=== PATIENT | female | born 1930 | race Caucasian/White ===

== ENCOUNTER 2016-12-03 10:52 | Emergency (ER) | payer OTHER ==
[~2016-12-03] VITALS: Ht 157.5 cm; Wt 55.5 kg
[~2016-12-03 10:52] MED LIST: ATOR-22 PO; ATV5X PO; CLC100 PO; ERGO1CAP41 PO; FERR1TAB23 PO; GLIP5TAB3 PO; HYDR-389 PO; HYDR-5688 PO; LSN/10125 PO; LXP10 PO; METF-384 PO; OMEP20CA9 PO; ONDA4TAB65 PO; SITA1TAB27 PO; SNKUDL10 PO; SYN25 PO; VLTG EXT
[2016-12-03 10:58] VITALS: TEMP 36.2; Ht 157.5 cm; Wt 55.5 kg
[2016-12-03] MEDS ORDERED: MCR5 PO (11:36)
[2016-12-03] MEDS ORDERED: LISI-461 PO (11:37)
[2016-12-03] MEDS ORDERED: MULT-190 PO (11:38)
[2016-12-03] MEDS ORDERED: ZNTT/150 PO (11:39)
[2016-12-03] MEDS ORDERED: ERGO1TAB12 PO (11:41)
--- NOTE | 2016-12-03 12:11 | EMERGENCY ROOM VISIT NOTE ---
History First contact with patient: 11:44 Chief Complaint: BACK PAIN Stated Complaint: BACK PAIN History of Present Illness The patient is a 86 year old female who presents to the Emergency Room via private vehicle accompanied by son with complaints of "back pain". The patient states that she has fallen 3 times in the past 2 weeks. The son who lives with her manager party, notes that she has fallen many times, once was witnessed by him in the kitchen and she had to help her stand that she was not able to get up on her own, the other was when the patient was in her bedroom and she fell back striking boxes noting that she did not have her cane, and the other time she believes that her shoelaces got caught in the door as it was being shut causing her to fall forward. She notes that at this time she is experiencing left lower back pain, which was worse last evening and rates the pain as a 10/10. She also notes that she has a history of kidney stones. She also states she has a history of 2 spinal fractures in the past. Her tetanus is up-to-date. In regard to previous falls she is unsure if she lost consciousness recently. She does feel lightheaded when she goes to stand up or lay down for bed. She denies any neck pain, chest pain, shortness of breath, abdominal pain or urinary symptoms. She has been incontinent of urine for many years according to her son she had a bladder tuck. She also notes pain in the distal right medial day region. This is also chronic. She doesn't want anything for pain at this time. Review of Systems A complete 10-point Review of Systems was discussed with the patient, with pertinent positives and negatives listed in the History of Present Illness. All remaining Review of Systems questions can be considered negative unless otherwise specified. Past Medical/Surgical History Medical Problems: (1) Diabetes (2) Ileus, postoperative (3) Kidney stones (4) Vertebral fracture, closed Surgical Problems: (1) S/P appendectomy (2) S/P hysterectomy Family History Patient reports no known family medical history. Diabetes, high blood pressure, cancer, kidney disease or stones. Social History Smoking Status: Never Smoker Alcohol Use: none Drug Use: none Marital Status: Housing Status: senior care Occupation Status: retired Social History: Pt. lives with son. She denies tobacco and alcohol use. Current/Historical Medications Scheduled Atorvastatin (Lipitor), 20 MG PO DAILY Ergocalciferol (Vitamin D2), 2,000 UNITS PO DAILY Escitalopram Oxalate (Escitalopram Oxalate), 10 MG PO DAILY Glyburide (Glyburide), 5 MG PO DAILY Hctz/Lisinopril (Lisinopril/Hctz 10/12.5 Mg), 1 TAB PO QAM Levothyroxine Sodium (Synthroid), 25 MCG PO DAILY Lisinopril (Lisinopril), 10 MG PO DAILY Metformin Hcl (Glucophage), 1,000 MG PO BID Ocuvite Preservision (Ocuvite Preservision), 1 TAB PO DAILY Omeprazole (Prilosec), 20 MG PO DAILY Ondansetron Hcl (Zofran), 4 MG PO PRN Ranitidine (Zantac), 150 MG PO BID Sitagliptin (Januvia), 100 MG PO DAILY Sulfa/Trimethoprim (Bactrim Ds 800MG/160MG), 1 TAB PO BID Scheduled PRN Diclofenac Sod (Voltaren), 1 APPLN EXT TID PRN for back pain Hydrocodone/Acetaminophen 5MG/325MG (Orange 5MG/325MG), 1-2 TABLET PO Q6H PRN for moderate to severe pain Lorazepam (Lorazepam), 0.5 MG PO HS PRN Lorazepam (Ativan), 1 TAB PO DAILY PRN for Anxiety/Agitation Allergies Coded Allergies: Amoxicillin (Unverified Allergy, Intermediate, RASH, 12/03/16) Cephalexin (Verified Allergy, Unknown, RASH, 12/03/16) Physical Exam Vital Signs Date Time Temp Pulse Resp B/P Pulse Ox O2 Delivery O2 Flow Rate FiO2 12/03/16 16:55 74 14 138/78 97 12/03/16 14:15 68 170/70 12/03/16 12:51 66 18 174/66 92 Room Air 12/03/16 12:05 71 192/96 76 171/115 71 186/104 12/03/16 10:58 36.2 73 18 158/73 93 Room Air Physical Exam VITAL SIGNS - Vital signs and nursing notes were reviewed. Patient is afebrile , normotensive, non-tachycardic and is saturating on room air 93%. GENERAL -86-year-old female appearing her stated age who is in no acute distress. Communicates well with provider and answers questions appropriately. SKIN - Without rashes. No petechial rashes. HEAD - NC/AT. EYES - PERRL with EOMI bilaterally. Sclera anicteric. Palpebral conjunctiva pink and moist with no injection noted. EARS - No deformities of external structures noted on gross examination bilaterally. No pain elicited with palpation of the tragus bilaterally. External auditory canals without discharge or otorrhea. Tympanic membranes pearly armendariz without retraction or bulging. No fluid or purulent material visualized behind the TM. Handle of malleus, umbo, cone of light, pars tensa/ flaccid all easily visualized. NOSE - Midline and without cyanosis. No epistaxis or purulent drainage noted. Septum midline without deviation or septal hematoma noted. MOUTH/OROPHARYNX - Without perioral cyanosis. Buccal mucosa pink and moist and without leukoplakia. Tongue midline with equal elevation of palate bilaterally. No tonsillar hypertrophy, erythema, or exudates noted. Good dentition noted. NECK - Neck with FROM. Supple to palpation. No lymphadenopathy noted. No nuchal rigidity. No C-spine tenderness. LUNGS - Chest wall symmetric without accessory muscle use, intercostals retractions, or central cyanosis. Normal vesicular breath sounds CTA B/L. No wheezes, rales, or rhonchi appreciated. CARDIAC - RRR with S1/S2. No murmur, rubs, or gallops appreciated. ABDOMEN - Abdominal contour without pulsations or visible masses. BS normoactive all four quadrants. No tenderness, palpable masses, hepatosplenomegaly, or ascites noted. MUSCULOSKELETAL: There is exquisite tenderness to palpation overlying the left , inferior lumbar region. No spinous processes tenderness in the lumbar region. There is concern for transverse process fracture in this region. EXTREMITIES - No clubbing or peripheral cyanosis. No pretibial edema present. There is tenderness to palpation overlying the distal medial tip/fib region. +5 /5 strength noted in UE/LE bilaterally. NEUROLOGIC - Cranial nerves II through XII grossly intact. Sensory intact to light touch throughout. PSYCH - A&Ox3 and cooperates fully with examiner. Pt is very pleasant and interacts well with examiner. Medical Decision & Procedures ER Provider Diagnostic Interpretation: RIGHT TIBIA/FIBULAR 2 VIEWS HISTORY: Right tibia pain, anterior distal Right COMPARISON: None. FINDINGS: There is no fracture or dislocation. Soft tissues are unremarkable. No radiopaque foreign bodies. Vascular calcifications are noted. Posterior and plantar calcaneal spurs. No abnormal periosteal reaction. IMPRESSION: No fractures within the right tibia or fibula. Electronically signed by: Mark Nino M.D. 12/03/2016 12:24 PM Dictated Date/Time: 12/03/2016 12:18 PM RIGHT LOWER EXTREMITY VENOUS DOPPLER HISTORY: distal right tib/fib medial tenderness Right COMPARISON STUDY: None. FINDINGS: There is normal compressibility, flow, and augmentation within the right lower extremity deep venous system. There is a 3.5 x 4.2 x 1.5 cm popliteal cyst. IMPRESSION: No DVT within the right lower extremity Electronically signed by: Mark Nino M.D. 12/03/2016 1:23 PM Dictated Date/Time: 12/03/2016 1:[address] DOSE: HISTORY: Left lower back pain s/p fall TECHNIQUE: Multiaxial CT images of the lumbar spine were performed and reformatted in the sagittal and coronal plane without the use of contrast. COMPARISON: Lumbar spine CT 02/11/2016. FINDINGS: There is again noted an old moderate anterior wedge-shaped compression fracture at T12. This demonstrates up to 3 mm of retropulsion of the posterior superior corner with mild to moderate central canal narrowing at this level. This remains unchanged. Mild superior endplate compression fracture at L3 with mild loss of height centrally. This is also old. No acute fractures within the lumbar spine. 3 mm of anterolisthesis of L4-L5, unchanged. There is moderate disc space narrowing at L4-L5. Moderate facet degenerative changes seen within the lower lumbar spine. Old, healed left posterior 12th rib fracture. Stable moderate central canal narrowing at L4-L5 due to a disc bulge and ligamentum and facet hypertrophy. Nonunited fracture at the tip of the left L2 transverse process. This is likely subacute. Right-sided nephrolithiasis with stable right-sided hydronephrosis. IMPRESSION: 1. Nonunited fracture at the tip of the left L2 transverse process which is likely subacute. 2. Old T12 and L3 compression fractures. 3. Degenerative changes as described above. Electronically signed by: Mark Nino M.D. 12/03/2016 12:59 PM Dictated Date/Time: 12/03/2016 12:[address] SCAN OF THE BONY PELVIS WITHOUT IV CONTRAST CLINICAL HISTORY: Fall with low back pain. COMPARISON STUDY: CT scan of the pelvis performed concurrently on 12/03/[address] dated 07/06/2016. TECHNIQUE: CT scan of the bony pelvis is performed from the pelvic inlet to the proximal femora. Images are reviewed in the axial, sagittal, and coronal planes. IV contrast was not administered for this examination. FINDINGS: The skeletal structures are osteopenic. There is no evidence of fracture involving the hips or bony pelvis. Lumbosacral spondylosis is partially visualized. The sacroiliac joints appear maintained. Mild arthritic change is noted in the hips. There are foci of intraluminal gas within the bladder, possibly related to instrumentation. The bladder is otherwise normal in appearance. The uterus is surgically absent. No adnexal lesion is seen. There is no pelvic sidewall or inguinal lymphadenopathy. There are bilateral fat-containing inguinal hernias. The imaged bowel loops are normal in caliber. Mild diverticulosis is noted in the sigmoid colon. There is advanced atherosclerotic calcification of the iliac and femoral arteries. The pelvic musculature appears atrophic. No intramuscular hematoma is identified. The overlying soft tissues are normal as visualized. IMPRESSION: 1. No fracture is seen in the hips or pelvis. 2. Osteopenia and mild degenerative change as above. 3. Foci of intraluminal gas are noted in the bladder lumen, likely related to recent instrumentation. Correlation with clinical findings and urinalysis will be required. 4. Additional changes as above. Dictated: 12/03/2016 12:47 PM Transcribed: 12/03/2016 1:27 PM [email or web address] Electronically signed by: Armando Valdes M.D. 12/03/2016 1:39 PM Dictated Date/Time: 12/03/2016 12:47 PM FINDINGS: General configuration of liver spleen and pancreas are unremarkable. Right kidney showed Pelvic cyst versus dilatation of the renal pelvis. There is no evidence for an obstructing urinary tract calculus on the right. There are several nonobstructing calcifications in the right and to a lesser extent left kidney. Adrenals are unremarkable. Bowel pattern is considered nonobstructive. There is no evidence for free fluid within the paracolic gutter or pelvic regions. Bladder is midline. There are no contained calcifications. There are small fat-containing non bowel containing inguinal hernias bilaterally. There are mild compression deformities of T12 and L3. T12 is old with L3 also pre-existing. IMPRESSION: No acute process of the abdomen or pelvis. Electronically signed by: Noé Merchant M.D. 12/03/2016 12:55 PM Dictated Date/Time: 12/03/2016 12:[address] NON[address]AST CT DOSE: 537.48 mGy.cm HISTORY: Fall. Loss of consciousness. TECHNIQUE: Multiaxial CT images of the head were performed without the use of intravenous contrast. Automated exposure control was utilized for this study. Comparison: Head CT 08/22/2014. Findings: The paranasal sinuses and mastoid air cells are clear. The calvarium and skull base are intact. There is no mass, hematoma, midline shift, acute infarct. White matter hypodensity is nonspecific but suggestive of microvascular ischemic change. The ventricles and sulci demonstrate mild age-related involutional changes. Impression: No significant change compared to the prior study. No acute intracranial abnormality. Electronically signed by: Mark Nino M.D. 12/03/2016 12:49 PM Dictated Date/Time: 12/03/2016 12:45 PM RIGHT TIBIA/FIBULAR 2 VIEWS HISTORY: Right tibia pain, anterior distal Right COMPARISON: None. FINDINGS: There is no fracture or dislocation. Soft tissues are unremarkable. No radiopaque foreign bodies. Vascular calcifications are noted. Posterior and plantar calcaneal spurs. No abnormal periosteal reaction. IMPRESSION: No fractures within the right tibia or fibula. Electronically signed by: Mark Nino M.D. 12/03/2016 12:24 PM Dictated Date/Time: 12/03/2016 12:18 PM Laboratory Results 12/03/16 12:25 Red Blood Count 4.25, Mean Corpuscular Volume 84.5, Mean Corpuscular Hemoglobin 27.5, Mean Corpuscular Hemoglobin Concent 32.6, Mean Platelet Volume 10.4, Neutrophils (%) (Auto) 76.9, Lymphocytes (%) (Auto) 14.1, Monocytes (%) (Auto) 6.7, Eosinophils (%) (Auto) 1.6, Basophils (%) (Auto) 0.4, Neutrophils # (Auto) 8.88, Lymphocytes # (Auto) 1.63, Monocytes # (Auto) 0.77, Eosinophils # (Auto) 0.19, Basophils # (Auto) 0.05 12/03/16 12:25 Test 12/03/16 12:20 12/03/16 12:25 Urine Color YELLOW Urine Appearance CLEAR (CLEAR) Urine pH 7.0 (4.5-7.5) Urine Specific [place] 1.015 (1.000-1.030) Urine Protein NEG (NEG) Urine Glucose (UA) NEG (NEG) Urine Ketones NEG (NEG) Urine Occult Blood NEG (NEG) Urine Nitrite POS (NEG) Urine Bilirubin NEG (NEG) Urine Urobilinogen NEG (NEG) Urine Leukocyte Esterase MODERATE (NEG) Urine WBC (Auto) 10-30 /hpf (0-5) Urine RBC (Auto) 0-4 /hpf (0-4) Urine Hyaline Casts (Auto) 0 /lpf (0-5) Urine Epithelial Cells (Auto) 5-10 /lpf (0-5) Urine Bacteria (Auto) 4+ (NEG) White Blood Count 11.55 K/uL (4.8-10.8) Red Blood Count 4.25 M/uL (4.2-5.4) Hemoglobin 11.7 g/dL (12.0-16.0) Hematocrit 35.9 % (37-47) Mean Corpuscular Volume 84.5 fL (80-100) Mean Corpuscular Hemoglobin 27.5 pg (25-34) Mean Corpuscular Hemoglobin Concent 32.6 g/dl (32-36) Platelet Count 299 K/uL (130-400) Mean Platelet Volume 10.4 fL (7.4-10.4) Neutrophils (%) (Auto) 76.9 % Lymphocytes (%) (Auto) 14.1 % Monocytes (%) (Auto) 6.7 % Eosinophils (%) (Auto) 1.6 % Basophils (%) (Auto) 0.4 % Neutrophils # (Auto) 8.88 K/uL (1.4-6.5) Lymphocytes # (Auto) 1.63 K/uL (1.2-3.4) Monocytes # (Auto) 0.77 K/uL (0.11-0.59) Eosinophils # (Auto) 0.19 K/uL (0-0.5) Basophils # (Auto) 0.05 K/uL (0-0.2) RDW Standard Deviation 43.4 fL (36.4-46.3) RDW Coefficient of Variation 14.1 % (11.5-14.5) Immature Granulocyte % (Auto) 0.3 % Immature Granulocyte # (Auto) 0.03 K/uL (0.00-0.02) Anion Gap 8.0 mmol/L (3-11) Est Creatinine Clear Calc Drug Dose 30.1 ml/min Estimated GFR () 53.4 Estimated GFR (Non- 46.1 BUN/Creatinine Ratio 21.8 (10-20) Calcium Level 9.2 mg/dl (8.5-10.1) Medications Administered Medications (Trade) Dose Ordered Sig/Hugo Route Start Time Stop Time Status Last Admin Dose Admin Trimethoprim/ Sulfamethoxazole (Septra Ds 800/ 160MG Tab) 1 tab NOW STAT PO 12/03/16 14:27 12/03/16 14:28 DC 12/03/16 15:08 1 TAB Medical Decision Patient was seen and evaluated as above. After obtaining a thorough history and physical examination the above workup was initiated. The patient presents with a significant fall history, and pain in the left lumbar spine. I was concerned for a transverse process fracture secondary to tenderness in the paraspinous musculature status post fall. She also noted to be falling more recently therefore felt that a CT of the head would be warranted. The patient is a history of kidney stones therefore a CT of the abdomen and pelvis were obtained without contrast for stone. Results of the scans as above. An x-ray was also obtained of the right lower leg and an ultrasound secondary to tenderness of the right medial calf/ankle region. These results are also above. Of pertinence, the CT of the head shows age-related change, the abdomen/ pelvis shows no evidence of obstructing urinary calculi, there is evidence of intraluminal gas bladder, and the patient denies any recent catheterization however she does have a UTI based upon urinalysis. She will be treated for this with Bactrim. The ultrasound and x-ray was unremarkable. The performing images of the lumbar spine did reveal that the patient does have a subacute L2 process fracture that does correlate clinically. I do believe this is causing her pain in the lumbar spine. She presents with slight leukocytosis of 11.5, and anemia with hemoglobin of 11.7. PRP reveals no evidence of kidney failure, but the BUN is elevated at 24. Random glucose is 187. The urine was noted to be higher on a previous visit. Urine reveals evidence of urinary tract infection. Positive nitrates, moderate leukocyte esterase, 10-30 white blood cells, 5-10 epithelial cells, and 4+ urine bacteria. I do not suspect pyelonephritis. The patient will be treated with Bactrim. Patient was also evaluated by my attending. I do believe that it is appropriate for the patient to have adequate ambulatory assistance. The patient's son was present in the room who is power of associate attorney, and it was decided with the patient that [facility] to be a good alternative temporarily to help her with the back pain in ambulation. Prescription for Bactrim was written as well as for 3 of Ativan as the rehabilitation facility does not have the ability to write for schedule 2 narcotics. 3 tablets were written for the Ativan. I do not suspect any other emergent or surgical process to the patient's pain. I do not believe that a medicare contact specialist at this time needs to be notified. I think she can follow-up in the outpatient setting without difficulty. There were educated upon today's findings, had questions answered prior to discharge, seemed happy with plan of care, and were discharged home in good condition. Patient was also personally evaluated by my attending. In the evaluation and treatment of this patient following differential diagnoses were entertained: UTI, intracranial abnormality, spinal fracture, kidney stone, UTI, among others. Impression Primary Impression: Back pain Additional Impressions: Anemia UTI (urinary tract infection) Departure Information Dispostion Home / Self-Care Condition GOOD Prescriptions Lorazepam (ATIVAN) 0.5 Mg Tab 1 TAB PO DAILY Y for Anxiety/Agitation, #3 TAB Prov: Georges Navarro PA-C 12/03/16 Sulfa/Trimethoprim (Bactrim Ds 800MG/160MG) Tab 1 TAB PO BID for 5 Days, #10 TAB Prov: Georges Navarro PA-C 12/03/16 Referrals Kael Cruz M.D. (PCP) Patient Instructions My [facility] Additional Instructions You have been treated in the Emergency Department for Back Pain. You have received pain medicine in the emergency department which impairs your ability to operate a vehicle. It is illegal for you to drive after receiving these medicines. For pain control, you can use the following [id number] medicines (if >12 yo): - Regular strength (325mg/tab) Tylenol (acetaminophen) 2 tabs every 4-6 hours as needed. Do not exceed 12 tablets in a 24 hour period. Avoid taking more than 4 grams (4000 mg) of Tylenol per day. This includes any other sources of acetaminophen you may take on a regular basis. - Regular strength (200 mg/tab) Advil (ibuprofen) 1-2 tabs every 4-6 hours as needed. Do not exceed a dose of 3200 mg per day. If this is an acute injury, ice can be applied to the area of pain for the first 3 days to help decrease pain and inflammation. After the first 3 days, a heating pad can be used over the area for continued soothing relief. Return to the Emergency Department if your current symptoms worsen despite treatment course outlined above, or if you develop any of the following symptoms : intractable pain despite aforementioned treatment course, loss of control of your bowel or bladder, numbness or tingling in your groin, or development of a fever. You have been treated in the Emergency Department for a Urinary Tract Infection (UTI). You have been prescribed Bactrim to be taken twice daily for 5 days you have received your first dose here. This is an antibiotic. All antibiotics have the potential to cause diarrhea. Stop this medication and contact a medical provider if you were to develop any significant adverse side effects including: wheezing, shortness of breath, passing out, vomiting, or a diffuse rash. Always take antibiotics as directed and COMPLETE the ENTIRE course regardless of the improvement of your symptoms. Return to the emergency department if your symptoms worsen despite treatment course outlined above. Drink plenty of water and stay well hydrated. As with any trip to the Emergency Department, you should follow-up with your Primary Care Provider from today's visit. Return to the emergency department if your symptoms persist despite treatment plan outlined above or if the following symptoms occur: increased fevers, chills , low back pain, nausea/vomiting, or blood in your urine. Please follow up with your family doctor and medicare contact specialist regarding today's visit. Problem Qualifiers Primary Impression: Back pain Back pain location: low back pain Back pain laterality: left Sciatica presence: without sciatica Additional Impressions: UTI (urinary tract infection) Urinary tract infection type: acute cystitis Hematuria presence: without hematuria Qualified Codes: N30.00 - Acute cystitis without hematuria
--- NOTE | 2016-12-03 12:25 | DIAGNOSTIC IMAGING REPORT ---
RIGHT TIBIA/FIBULAR 2 VIEWS HISTORY: Right tibia pain, anterior distal Right COMPARISON: None. FINDINGS: There is no fracture or dislocation. Soft tissues are unremarkable. No radiopaque foreign bodies. Vascular calcifications are noted. Posterior and plantar calcaneal spurs. No abnormal periosteal reaction. IMPRESSION: No fractures within the right tibia or fibula. Electronically signed by: Mark Nino M.D. 12/03/2016 12:24 PM Dictated Date/Time: 12/03/2016 12:18 PM
[2016-12-03 12:40] LABS: BASO % 0.4 %; BASO ABS # 0.05 K/uL (0-0.2); COMPLETE YES; EOS % 1.6 %; HEMATOCRIT 35.9 % (37-47); IG% 0.3 %; LYMPH % 14.1 %; LYMPH ABS # 1.63 K/uL (1.2-3.4); MEAN CELL VOLUME 84.5 fL (80-100); MEAN CORPUSCULAR HEMOGLOBIN 27.5 pg (25-34); MEAN CORPUSCULAR HGB CONC 32.6 g/dl (32-36); MEAN PLATELET VOLUME 10.4 fL (7.4-10.4); MONO % 6.7 %; NEUT % 76.9 %; PLATELET COUNT 299 K/uL (130-400); RED BLOOD COUNT 4.25 M/uL (4.2-5.4); WHITE BLOOD COUNT 11.55 K/uL (4.8-10.8)
[2016-12-03 12:48] LABS: URINE APPEARANCE CLEAR (CLEAR); URINE BILIRUBIN NEG (NEG); URINE COLOR YELLOW; URINE NITRITE POS (NEG); URINE SPECIFIC GRAVITY 1.015 (1.000-1.030); UROBILINOGEN NEG (NEG); ZZUR CULT IF INDIC CLEAN CATCH YES
--- NOTE | 2016-12-03 12:50 | DIAGNOSTIC IMAGING REPORT ---
HEAD CT NONCONTRAST CT DOSE: 537.48 mGy.cm HISTORY: Fall. Loss of consciousness. TECHNIQUE: Multiaxial CT images of the head were performed without the use of intravenous contrast. Automated exposure control was utilized for this study. Comparison: Head CT 08/22/2014. Findings: The paranasal sinuses and mastoid air cells are clear. The calvarium and skull base are intact. There is no mass, hematoma, midline shift, acute infarct. White matter hypodensity is nonspecific but suggestive of microvascular ischemic change. The ventricles and sulci demonstrate mild age-related involutional changes. Impression: No significant change compared to the prior study. No acute intracranial abnormality. Electronically signed by: Mark Nino M.D. 12/03/2016 12:49 PM Dictated Date/Time: 12/03/2016 12:45 PM
[2016-12-03 12:51] LABS: MANUAL MICROSCOPIC REQUIRED? NO; REVIEW REQ? NO
--- NOTE | 2016-12-03 12:56 | DIAGNOSTIC IMAGING REPORT ---
ABDOMEN AND PELVIS CT WITHOUT CONTRAST CT DOSE: 1385.82 mGy.cm HISTORY: Trauma. Pain. Left lower back pain. Hx fall and calculi TECHNIQUE: Multiaxial CT images of the abdomen and pelvis were performed without the use of intravenous and oral contrast according to the standard department stone protocol. COMPARISON STUDY: None. FINDINGS: General configuration of liver spleen and pancreas are unremarkable. Right kidney showed Pelvic cyst versus dilatation of the renal pelvis. There is no evidence for an obstructing urinary tract calculus on the right. There are several nonobstructing calcifications in the right and to a lesser extent left kidney. Adrenals are unremarkable. Bowel pattern is considered nonobstructive. There is no evidence for free fluid within the paracolic gutter or pelvic regions. Bladder is midline. There are no contained calcifications. There are small fat-containing non bowel containing inguinal hernias bilaterally. There are mild compression deformities of T12 and L3. T12 is old with L3 also pre-existing. IMPRESSION: No acute process of the abdomen or pelvis. Electronically signed by: Noé Merchant M.D. 12/03/2016 12:55 PM Dictated Date/Time: 12/03/2016 12:46 PM
[2016-12-03 12:59] LABS: BUN/CREATININE RATIO 21.8 (10-20); CALCIUM 9.2 mg/dl (8.5-10.1); CREATININE 1.1 mg/dl (0.60-1.20); POTASSIUM 3.8 mmol/L (3.5-5.1)
--- NOTE | 2016-12-03 13:00 | DIAGNOSTIC IMAGING REPORT ---
LUMBAR SPINE CT CT DOSE: HISTORY: Left lower back pain s/p fall TECHNIQUE: Multiaxial CT images of the lumbar spine were performed and reformatted in the sagittal and coronal plane without the use of contrast. COMPARISON: Lumbar spine CT 02/11/2016. FINDINGS: There is again noted an old moderate anterior wedge-shaped compression fracture at T12. This demonstrates up to 3 mm of retropulsion of the posterior superior corner with mild to moderate central canal narrowing at this level. This remains unchanged. Mild superior endplate compression fracture at L3 with mild loss of height centrally. This is also old. No acute fractures within the lumbar spine. 3 mm of anterolisthesis of L4-L5, unchanged. There is moderate disc space narrowing at L4-L5. Moderate facet degenerative changes seen within the lower lumbar spine. Old, healed left posterior 12th rib fracture. Stable moderate central canal narrowing at L4-L5 due to a disc bulge and ligamentum and facet hypertrophy. Nonunited fracture at the tip of the left L2 transverse process. This is likely subacute. Right-sided nephrolithiasis with stable right-sided hydronephrosis. IMPRESSION: 1. Nonunited fracture at the tip of the left L2 transverse process which is likely subacute. 2. Old T12 and L3 compression fractures. 3. Degenerative changes as described above. Electronically signed by: Mark Nino M.D. 12/03/2016 12:59 PM Dictated Date/Time: 12/03/2016 12:49 PM
--- NOTE | 2016-12-03 13:25 | DIAGNOSTIC IMAGING REPORT ---
RIGHT LOWER EXTREMITY VENOUS DOPPLER HISTORY: distal right tib/fib medial tenderness Right COMPARISON STUDY: None. FINDINGS: There is normal compressibility, flow, and augmentation within the right lower extremity deep venous system. There is a 3.5 x 4.2 x 1.5 cm popliteal cyst. IMPRESSION: No DVT within the right lower extremity Electronically signed by: Mark Nino M.D. 12/03/2016 1:23 PM Dictated Date/Time: 12/03/2016 1:20 PM
--- NOTE | 2016-12-03 13:28 | DIAGNOSTIC IMAGING REPORT ---
CT SCAN OF THE BONY PELVIS WITHOUT IV CONTRAST CLINICAL HISTORY: Fall with low back pain. COMPARISON STUDY: CT scan of the pelvis performed concurrently on 12/03/[address] dated 07/06/2016. TECHNIQUE: CT scan of the bony pelvis is performed from the pelvic inlet to the proximal femora. Images are reviewed in the axial, sagittal, and coronal planes. IV contrast was not administered for this examination. FINDINGS: The skeletal structures are osteopenic. There is no evidence of fracture involving the hips or bony pelvis. Lumbosacral spondylosis is partially visualized. The sacroiliac joints appear maintained. Mild arthritic change is noted in the hips. There are foci of intraluminal gas within the bladder, possibly related to instrumentation. The bladder is otherwise normal in appearance. The uterus is surgically absent. No adnexal lesion is seen. There is no pelvic sidewall or inguinal lymphadenopathy. There are bilateral fat-containing inguinal hernias. The imaged bowel loops are normal in caliber. Mild diverticulosis is noted in the sigmoid colon. There is advanced atherosclerotic calcification of the iliac and femoral arteries. The pelvic musculature appears atrophic. No intramuscular hematoma is identified. The overlying soft tissues are normal as visualized. IMPRESSION: 1. No fracture is seen in the hips or pelvis. 2. Osteopenia and mild degenerative change as above. 3. Foci of intraluminal gas are noted in the bladder lumen, likely related to recent instrumentation. Correlation with clinical findings and urinalysis will be required. 4. Additional changes as above. Dictated: 12/03/2016 12:47 PM Transcribed: 12/03/2016 1:27 PM Sofie Electronically signed by: Armando Valdes M.D. 12/03/2016 1:39 PM Dictated Date/Time: 12/03/2016 12:47 PM
--- NOTE | 2016-12-03 14:17 | EMERGENCY ROOM VISIT NOTE ---
ED Visit Note First contact with patient: 11:44 86-year-old female with recent frequent falls was fully evaluated by Georges Navarro PA-C. Please see his note. I also independently evaluated the patient. The patient has back pain and has a subacute transverse process fracture. We discussed care with the patient and with her son.
[2016-12-03] MEDS ORDERED: SULFAMETHOXAZOLE/TRIMETHOPRIM DS 800/160MG TAB PO STA (14:27)
[2016-12-03] MEDS ORDERED: SULF800T23 PO (16:09)
[2016-12-03] MEDS ORDERED: LORA-741 PO (16:39)
[2016-12-03 16:55] VITALS: BP 138/78; PULSE 74; O2SAT 97
== END 2016-12-03 16:56 | disposition short-term general hospital (02) ==
LOC: C.EDB 10:53 → C.EDA 16:56
DX: M54.9 Dorsalgia, unspecified (principal); D64.9 Anemia, unspecified; N30.00 Acute cystitis without hematuria; E11.9 Type 2 diabetes mellitus without complications; Z83.3 Family history of diabetes mellitus; Z82.49 Family history of ischemic heart disease and other diseases of the circulatory system; M79.661 Pain in right lower leg

== ENCOUNTER → 2017-02-01 | Outpatient (CLI) | payer OTHER ==
[~2017-02-01] MED LIST changes: +AMR2 PO; -CLC100 PO; -ERGO1CAP41 PO; +ERGO1TAB12 PO; -FERR1TAB23 PO; -GLIP5TAB3 PO; -HYDR-389 PO; +LISI-461 PO; +MCR5 PO; +MULT-190 PO; -SNKUDL10 PO; +ZNTT/150 PO
[2017-02-01 14:23] LABS: ESTIMATED AVERAGE GLUCOSE 169 mg/dl; HA1C FLAG Normal (Normal)
[2017-02-01 14:49] LABS: AST/SGOT 17 U/L (15-37); BLOOD UREA NITROGEN 24 mg/dl (7-18); BUN/CREATININE RATIO 25.8 (10-20); CALCIUM 9.2 mg/dl (8.5-10.1); CARBON DIOXIDE 28 mmol/L (21-32); CHLORIDE 104 mmol/L (98-107); CREATININE 0.95 mg/dl (0.60-1.20); GLUCOSE 158 mg/dl (70-99); POTASSIUM 4.1 mmol/L (3.5-5.1); SODIUM 141 mmol/L (136-145)
[2017-02-01 15:00] LABS: ALB/GLOB RATIO 0.8 (0.9-2); ALKALINE PHOSPHATASE 103 U/L (45-117); ALT/SGPT 17 U/L (12-78)
--- NOTE | 2017-02-08 08:31 | CODING QUERY MEDICAL NECESSITY ---
CQSUPPORTING DIAGNOSIS NEEDED A supporting diagnosis is required for the test/procedure performed on this patient in order for us to be reimbursed by the patient's insurance. Please provide a supporting diagnosis for the following test/procedure listed below next to the test name along with your signature. *If there is no additional diagnosis for this patient that would support the following test/procedure please document that below next to the test/procedure. Test(s)/Procedure(s) that require a supporting diagnosis: DOS 02/01/17 GLYCATED HEMOGLOBIN TEST Provider Signature: Date: Thank you Patrizia Duenas Health Information Management Once completed, please kindly fax back to [phone] For questions please call [phone]
== END | disposition home or self-care (01) ==
LOC: C.LABBC 12:24
PROVIDERS: ATTEND Internal Medicine
DX: E55.9 Vitamin D deficiency, unspecified (principal); E11.65 Type 2 diabetes mellitus with hyperglycemia

== ENCOUNTER 2017-04-06 06:33 | Emergency (ER) | payer OTHER ==
[~2017-04-06] VITALS: Ht 147.3 cm; Wt 58.1 kg
[~2017-04-06 06:33] MED LIST changes: -AMR2 PO
[2017-04-06 06:35] VITALS: TEMP 36.6; Ht 147.3 cm; Wt 58.1 kg
--- NOTE | 2017-04-06 06:51 | EMERGENCY ROOM VISIT NOTE ---
History Report prepared by Jenna: Chaya Rivera Under the Supervision of: Dr. Silvana Olivarez D.O. First contact with patient: 06:42 Chief Complaint: FALL Stated Complaint: FALL History of Present Illness The patient is a 86 year old female who presents to the Emergency Room with complaints of constant pain from injuries following a fall that occurred just prior to arrival. The patient states that she got up this morning to take her dog out. She came back into the house wearing sneakers which she states had a back that was not all the way on. The patient walked into the dining room where she hit one of the dining room chairs and fell into it. She states she ended up in a seated position on the chair and did not fall to the ground. She notes pain to her back and legs which have bruising on them. The patient states that her back pain is causing pain with breathing. Patient states she was feeling normal prior to this event, denies any other preceding or prodromal symptoms. She notes that she was using her cane which she uses regularly. She is not on any blood thinners. The patient has broken her back twice, she denies history of back surgery. Pt denies LOC, headache, change in vision, fevers, chest pain, shortness of breath, abdominal pain, nausea, vomiting, diarrhea, pain with urination, and melena. No other recent injury and no recent medication changes. 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 Review of Systems See HPI for pertinent positives & negatives. A total of 10 systems reviewed and were otherwise negative. Past Medical & Surgical Medical Problems: (1) Diabetes (2) Ileus, postoperative (3) Kidney stones (4) Vertebral fracture, closed Surgical Problems: (1) S/P appendectomy (2) S/P hysterectomy Family History Patient reports no known family medical history. Social History Smoking Status: Never Smoker Alcohol Use: none Drug Use: none Marital Status: Housing Status: [facility] Occupation Status: retired Current/Historical Medications Scheduled Atorvastatin (Lipitor), 20 MG PO DAILY Ergocalciferol (Vitamin D2), 2,000 UNITS PO DAILY Escitalopram Oxalate (Escitalopram Oxalate), 10 MG PO DAILY Glimepiride (Glimepiride), 2 MG PO QAM Hctz/Lisinopril (Lisinopril/Hctz 10/12.5 Mg), 1 TAB PO QAM Levothyroxine Sodium (Synthroid), 25 MCG PO DAILY Lisinopril (Lisinopril), 10 MG PO DAILY Metformin Hcl (Glucophage), 1,000 MG PO BID Ocuvite Preservision (Ocuvite Preservision), 1 TAB PO DAILY Omeprazole (Prilosec), 20 MG PO DAILY Ranitidine (Zantac), 150 MG PO BID Sitagliptin (Januvia), 100 MG PO DAILY Scheduled PRN Diclofenac Sod (Voltaren), 1 APPLN EXT TID PRN for back pain Hydrocodone/Acetaminophen 5MG/325MG (Belfry 5MG/325MG), 1 TABLET PO Q6 PRN for Pain Lorazepam (Lorazepam), 0.5 MG PO HS PRN for Sleep Ondansetron Hcl (Zofran), 4 MG PO Q6 PRN for Nausea or Vomiting Allergies Coded Allergies: Amoxicillin (Unverified Allergy, Intermediate, RASH, 04/06/17) Cephalexin (Verified Allergy, Unknown, RASH, 04/06/17) Physical Exam Vital Signs Date Time Temp Pulse Resp B/P (MAP) Pulse Ox O2 Delivery O2 Flow Rate FiO2 04/06/17 11:00 79 16 159/89 91 04/06/17 08:25 83 16 151/75 91 Room Air 04/06/17 06:35 36.6 67 16 185/66 95 Room Air Physical Exam GENERAL: alert, well appearing, well nourished, no distress, non-toxic EYE EXAM: normal conjunctiva, PERRL and EOM's grossly intact OROPHARYNX: no exudate, no erythema, lips, buccal mucosa, and tongue normal and mucous membranes are moist NECK: supple, no nuchal rigidity, no adenopathy, non-tender LUNGS: Clear to auscultation. Normal chest wall mechanics HEART: no murmurs, S1 normal and S2 normal ABDOMEN: abdomen soft, non-tender, normo-active bowel sounds, no masses, no rebound or guarding. BACK: 2 separate contusion to the right flank. Midline back tenderness of lower thoracic, upper thoracic nontender. No step off. Pelvic stable. SKIN: no rashes and no bruising UPPER EXTREMITIES: upper extremities are grossly normal. LOWER EXTREMITIES: 1 small resolving of ecchymosis to the right lateral knee. No pitting edema. NEURO EXAM: Normal sensorium, cranial nerves II-XII grossly intact, normal speech, no gross weakness of arms, no gross weakness of legs. No drift. Finger to nose intact. Gross sensation intact. Medical Decision & Procedures ER Provider Diagnostic Interpretation: Radiology results have been interpreted by the radiologist and reviewed by me. CT SCAN OF THE THORACIC SPINE WITHOUT IV CONTRAST CLINICAL HISTORY: Fall. COMPARISON STUDY: CT scan of the thoracic spine dated 02/11/2016. CT scan of the chest performed concurrently on 04/06/2017. TECHNIQUE: CT scan of the thoracic spine is performed from the lower cervical spine to the upper lumbar spine. Images are reviewed in the axial, sagittal, and coronal planes. IV contrast was not administered specifically for this examination. There is IV contrast present from the concurrently performed CT scan of the chest. FINDINGS: The skeletal structures are osteopenic. There is no evidence of fracture or malalignment involving the thoracic spine. A moderate chronic compression deformity of T12 with mildly retropulsed fragments is unchanged from previous. Vertebral body height is otherwise maintained throughout the thoracic spine. S-shaped thoracolumbar scoliosis is observed. There are anterior and lateral marginal osteophytes seen throughout. The transverse and spinous processes appear intact. There are healed bilateral posterior rib fractures. Mild multilevel degenerative disc space narrowing is observed. Posterior disc osteophyte complexes are seen at T3-T4, T4-T5, T8-T9, T9-T10, and T10-T11. There is no evidence of large disc herniation. The paraspinous soft tissues are within normal limits. The visualized lung parenchyma appears clear. The heart is enlarged and there is atherosclerotic calcification of the thoracic aorta. IMPRESSION: 1. There is no evidence of acute fracture or malalignment involving the thoracic spine. 2. A chronic compression deformity of T12 is unchanged. 3. Osteopenia with spondylotic change and scoliosis as above. Electronically signed by: Armando Valdes M.D. 04/06/2017 9:01 AM Dictated Date/Time: 04/06/2017 8:[address] DOSE: HISTORY: Trauma. Pain. trauma, pain hx fx TECHNIQUE: Multiaxial CT images of the lumbar spine were performed and reformatted in the sagittal and coronal plane without the use of contrast. COMPARISON: 12/03/2016 FINDINGS: Pre-existing compression deformity T12. Slight concavity superior endplate L3 unchanged. Degenerative intervertebral this change also stable. No new or interval finding. Unchanging grade 1 anterolisthesis L4 and L5. Pre-existing fracture posterior aspect left 12th rib degenerative changes of the posterior facets throughout. Old fracture left transverse process of L2 IMPRESSION: 1. Old/pre-existing compression deformities of T12 and L3. 2. Whole/pre-existing fractures left posterior 12th rib and left transverse process L2 3. No new or interval process. 4. Right renal hydronephrosis with right renal calcifications unchanged from the prior exam. Electronically signed by: Noé Merchant M.D. 04/06/2017 8:40 AM Dictated Date/Time: 04/06/2017 8:35 AM ADDENDUM ADDENDUM: The chronic impression deformity in the thoracic spine is seen at T12 not T11. The remainder of the findings are unchanged. Electronically signed by: Armando Valdes M.D. 04/06/2017 9:02 AM Dictated Date/Time: 04/06/2017 9:[address] SCAN OF THE CHEST WITH IV CONTRAST CLINICAL HISTORY: Fall. Right-sided chest wall pain. COMPARISON STUDY: Chest x-ray dated 02/18/2016. Abdominal CT dated 12/03/2016. TECHNIQUE: Following the IV administration of 93 cc of Optiray 320, CT scan of the thorax was performed from the thoracic inlet to the upper abdomen. Images are reviewed in the axial, sagittal, and coronal planes. IV contrast was administered without complication. The examination is degraded by streak artifact from the arms which could not be elevated above the chest. CT DOSE: 1214.39 mGy.cm FINDINGS: Thyroid: Imaged portions of the thyroid gland are normal in size and attenuation. Thoracic aorta: There is atherosclerotic calcification of the thoracic aorta, which is normal in caliber and demonstrates standard 3-vessel arch anatomy. No dissection is seen. Pulmonary vasculature: The pulmonary trunk is normal in caliber. There are no filling defects identified in the central pulmonary vessels to indicate pulmonary embolus. Note that this examination was not protocoled for evaluation of the pulmonary arteries. Heart: The heart is mildly enlarged and without pericardial effusion. There are coronary artery calcifications. Lungs and pleural spaces: Evaluation of the lung parenchyma is degraded by respiratory motion artifact. There is no airspace consolidation, pleural effusion, or pneumothorax. Dependent atelectasis is observed. The trachea and central airways are clear. Mediastinum: There is no mediastinal hematoma or lymphadenopathy. Becka: Clear. Axillae: There is no axillary lymphadenopathy. Upper abdomen: There is a moderate hiatal hernia. The visualized kidneys demonstrate cortical atrophy. Nonobstructing calculi are noted in the right kidney and there is right-sided hydronephrosis. Surgical clips are noted in the left breast. Skeletal structures: The skeletal structures are osteopenic. No lytic or blastic bony lesions are seen. Degenerative change and scoliosis are noted in the thoracic spine. There are acute and nondistracted right lateral 7th through 9th rib fractures. No additional acute fracture is seen. A posterior right 10th rib fracture is chronic and unchanged. There is a chronic moderate compression deformity of T11. This was also seen on 12/03/2016. There are numerous healed left-sided rib fractures. IMPRESSION: 1. There is no airspace consolidation, pleural effusion, or pneumothorax. 2. There are acute nondistracted right lateral 7th through 9th rib fractures. 3. Additional chronic bilateral rib fractures and a chronic compression deformity of T11 are similar to previous. 4. Cardiomegaly. 5. Right-sided hydronephrosis is similar to previous. Right renal calculi are partially visualized. See report of abdominal CT performed concurrently for detailed findings. 6. Hiatal hernia. Electronically signed by: Armando Valdes M.D. 04/06/2017 8:49 AM Dictated Date/Time: 04/06/2017 8:38 AM ABD/PELVIS IV CONTRAST ONLY HISTORY:86 yearsFemaletrauma acute right-sided rib pain. COMPARISON: 12/03/2016 CT. TECHNIQUE: Multiple axial CT images of the abdomen were obtained following the administration of 93 mL Optiray 320. FINDINGS: There are acute minimally angulated nondisplaced fractures of the lateral right 7th through 10th ribs. Groundglass opacity adjacent to the seventh rib fracture is noted within the lateral basal segment right lower lobe suggesting pulmonary contusion is seen on image 71 of the axial series. No associated pneumothorax identified. Coronary arterial calcifications are partially imaged. No pneumoperitoneum identified. The bladder, spleen, pancreas and adrenal glands appear to be unremarkable. Low attenuating nonspecific focus is seen within the dome of the liver, 3 mm which is too small to characterize and appears unchanged from comparison. Mild to moderate atrophy of the right kidney is again seen with vascular calcifications. Extrarenal pelvis on the right is noted. No hydronephrosis. There is extensive atherosclerotic plaquing of the abdominal aorta which is tortuous. No bulky retroperitoneal adenopathy. Urinary bladder is unremarkable. Prior hysterectomy. Moderate sized hiatal hernia with partially intrathoracic stomach. No bowel obstruction. Noninflamed colonic diverticula are seen. Aside from the previously mentioned rib fractures, the remaining bones appear intact. Approximately 30% anterior endplate compression deformity of the T12 vertebral body is noted, better evaluated on comparison thoracic spine study. IMPRESSION: 1. Acute minimally angulated nondisplaced fractures of the lateral right 7th through 10th ribs. Small groundglass opacity adjacent to the seventh rib fracture within the lateral basal segment of the right lower lobe suggests associated pulmonary contusion without pneumothorax identified. 2. 30% anterior endplate compression deformity of the T12 vertebral body is better evaluated on thoracic spine study of same day. 3. Additional incidental findings as above. The above report was generated using voice recognition software. It may contain grammatical, syntax or spelling errors. Electronically signed by: Cornelio Thompson 04/06/2017 8:49 AM Dictated Date/Time: 04/06/2017 8:39 AM Laboratory Results 04/06/17 07:25 Red Blood Count 3.76, Mean Corpuscular Volume 86.4, Mean Corpuscular Hemoglobin 27.9, Mean Corpuscular Hemoglobin Concent 32.3, Mean Platelet Volume 9.8, Neutrophils (%) (Auto) 55.9, Lymphocytes (%) (Auto) 29.9, Monocytes (%) (Auto) 11.0, Eosinophils (%) (Auto) 2.5, Basophils (%) (Auto) 0.5, Neutrophils # (Auto ) 4.48, Lymphocytes # (Auto) 2.40, Monocytes # (Auto) 0.88, Eosinophils # (Auto ) 0.20, Basophils # (Auto) 0.04 04/06/17 07:25 Test 04/06/17 07:25 White Blood Count 8.02 K/uL (4.8-10.8) Red Blood Count 3.76 M/uL (4.2-5.4) Hemoglobin 10.5 g/dL (12.0-16.0) Hematocrit 32.5 % (37-47) Mean Corpuscular Volume 86.4 fL (80-100) Mean Corpuscular Hemoglobin 27.9 pg (25-34) Mean Corpuscular Hemoglobin Concent 32.3 g/dl (32-36) Platelet Count 254 K/uL (130-400) Mean Platelet Volume 9.8 fL (7.4-10.4) Neutrophils (%) (Auto) 55.9 % Lymphocytes (%) (Auto) 29.9 % Monocytes (%) (Auto) 11.0 % Eosinophils (%) (Auto) 2.5 % Basophils (%) (Auto) 0.5 % Neutrophils # (Auto) 4.48 K/uL (1.4-6.5) Lymphocytes # (Auto) 2.40 K/uL (1.2-3.4) Monocytes # (Auto) 0.88 K/uL (0.11-0.59) Eosinophils # (Auto) 0.20 K/uL (0-0.5) Basophils # (Auto) 0.04 K/uL (0-0.2) RDW Standard Deviation 43.7 fL (36.4-46.3) RDW Coefficient of Variation 13.7 % (11.5-14.5) Immature Granulocyte % (Auto) 0.2 % Immature Granulocyte # (Auto) 0.02 K/uL (0.00-0.02) Anion Gap 8.0 mmol/L (3-11) Est Creatinine Clear Calc Drug Dose 28.7 ml/min Estimated GFR () 53.4 Estimated GFR (Non- 46.1 BUN/Creatinine Ratio 23.3 (10-20) Calcium Level 9.1 mg/dl (8.5-10.1) Laboratory results per my review. Medications Administered Medications (Trade) Dose Ordered Sig/Hugo Route Start Time Stop Time Status Last Admin Dose Admin Morphine Sulfate (MoRPHine SULFATE INJ) 2 mg NOW STAT IV 04/06/17 07:24 04/06/17 07:26 DC 04/06/17 07:24 2 MG Sodium Chloride 1,000 ml @ 250 mls/hr Q4H STAT IV 04/06/17 07:24 04/06/17 11:23 DC 04/06/17 07:24 250 MLS/HR Acetaminophen/ Hydrocodone Bitart (Belfry 5/325 Tab) 1 tab NOW STAT PO 04/06/17 09:22 04/06/17 09:25 DC 04/06/17 09:22 1 TAB ED Course 0643: The patient was evaluated in room B6. A complete history and physical exam was performed. 0724: Sodium Chloride 1,000 ml @ 250 mls/hr IV, Morphine Sulfate Inj 2 mg IV. 0907: I discussed imaging reports with Dr. Valdes - Radiology. The patient has no pulmonary contusion. 0909: I discussed with the patient her test results with the patient and her son. 0922: Belfry 5/325 Tab 1 tab PO. 0945: Upon reevaluation, the patient is feeling better. I discussed the findings and the treatment plan with the patient and her son. They verbalizes agreement and understanding. She was discharged home. Medical Decision The patient is a 86 year old female who presents to the ED with complaints of pain from fall. Differential diagnoses include major intracranial, cervical, spinal, thoracic, abdominal, pelvic and neurologic injury. Fracture, contusion, sprain, strain, laceration, abrasions included as well. Medication Reconciliation: I attest that I have personally reviewed the patient' s current medication list. Blood pressure screening: Patient was found to have an elevated blood pressure and was referred to their primary doctor for recheck and further treatment. Senna bedside states patient is noncompliant with use of her walker, and never put her shoes on all the way. He feels this contributed to her fall. Patient' s son very frustrated, I asked case management to see and discuss with them additional possible resources. Did not feel patient required inpatient rehabilitation at this time. Patient not hypoxic, labs otherwise stable, no other evidence of traumatic injury. Discussed with them usual course of treatment for rib fractures, discussed close follow-up with family doctor, discussed symptoms to watch and return for, discussed at length with patient need for use of walker, and steps to take to avoid any recurrent falls. Discussed pain medications and incentive spirometry, symptoms to watch and return for, they verbalized understanding were agreeable with plan. Consults Time Called: 904 Consulting Physician: Dr. Valdes - Radiology Returned Call: [phone] I discussed imaging reports with Dr. Valdes - Radiology. The patient has no pulmonary contusion. Impression Primary Impression: Flank pain Additional Impressions: Rib fracture Fall Scribe Attestation The scribe's documentation has been prepared under my direction and personally reviewed by me in its entirety. I confirm that the note above accurately reflects all work, treatment, procedures, and medical decision making performed by me. Departure Information Dispostion Home / Self-Care Prescriptions Hydrocodone/Acetaminophen 5MG/325MG (Belfry 5MG/325MG) Tab 1 TABLET PO Q6 Y for Pain, #14 TAB Prov: Silvana Olivarez, DO 04/06/17 Referrals Kael Cruz M.D. (PCP) Forms HOME CARE DOCUMENTATION FORM, IMPORTANT VISIT INFORMATION Patient Instructions My [facility] Additional Instructions Please use the pain medications carefully as they can make you dizzy or sleepy. Please use your walker at all times. Please wear appropriate footwear and make sure they are securely fastened to your feet. Please use the incentive spirometer daily while you are awake to help prevent pneumonia. Please call and follow up with your family doctor to recheck your symptoms and assure you are improving. Please continue your other medications as prescribed. If you develop any worsening pain, have trouble breathing, vomiting, dizziness, feel unsteady on her feet, or have any other new concerns, please return the emergency room. Problem Qualifiers Additional Impressions: Rib fracture Encounter type: initial encounter Rib fracture type: multiple ribs Fracture type: closed Laterality: right Qualified Codes: S22.41XA - Multiple fractures of ribs, right side, initial encounter for closed fracture Fall Encounter type: initial encounter Qualified Codes: W19.XXXA - Unspecified fall, initial encounter
[2017-04-06] MEDS ORDERED: AMR2 PO (06:55)
[2017-04-06] MEDS ORDERED: OPTIRAY 320 IV PRN (07:00)
[2017-04-06] MEDS ORDERED: MoRPHine SULFATE 4 MG/ML 1 ML CARP\\VIAL IV STA (07:24)
[2017-04-06] MEDS ORDERED: SODIUM CHLORIDE 0.9% 1000ML 1,000 ML IV STA (07:24)
[2017-04-06 07:36] LABS: BASO % 0.5 %; BASO ABS # 0.04 K/uL (0-0.2); COMPLETE YES; EOS % 2.5 %; HEMATOCRIT 32.5 % (37-47); IG% 0.2 %; LYMPH % 29.9 %; MEAN CELL VOLUME 86.4 fL (80-100); MEAN CORPUSCULAR HEMOGLOBIN 27.9 pg (25-34); MEAN CORPUSCULAR HGB CONC 32.3 g/dl (32-36); MEAN PLATELET VOLUME 9.8 fL (7.4-10.4); NEUT % 55.9 %; PLATELET COUNT 254 K/uL (130-400); RED BLOOD COUNT 3.76 M/uL (4.2-5.4); WHITE BLOOD COUNT 8.02 K/uL (4.8-10.8)
[2017-04-06 07:53] LABS: BUN/CREATININE RATIO 23.3 (10-20); CALCIUM 9.1 mg/dl (8.5-10.1); CREATININE 1.1 mg/dl (0.60-1.20); POTASSIUM 4.3 mmol/L (3.5-5.1)
--- NOTE | 2017-04-06 08:42 | DIAGNOSTIC IMAGING REPORT ---
LUMBAR SPINE CT CT DOSE: HISTORY: Trauma. Pain. trauma, pain hx fx TECHNIQUE: Multiaxial CT images of the lumbar spine were performed and reformatted in the sagittal and coronal plane without the use of contrast. COMPARISON: 12/03/2016 FINDINGS: Pre-existing compression deformity T12. Slight concavity superior endplate L3 unchanged. Degenerative intervertebral this change also stable. No new or interval finding. Unchanging grade 1 anterolisthesis L4 and L5. Pre-existing fracture posterior aspect left 12th rib degenerative changes of the posterior facets throughout. Old fracture left transverse process of L2 IMPRESSION: 1. Old/pre-existing compression deformities of T12 and L3. 2. Whole/pre-existing fractures left posterior 12th rib and left transverse process L2 3. No new or interval process. 4. Right renal hydronephrosis with right renal calcifications unchanged from the prior exam. Electronically signed by: Noé Merchant M.D. 04/06/2017 8:40 AM Dictated Date/Time: 04/06/2017 8:35 AM
--- NOTE | 2017-04-06 08:50 | DIAGNOSTIC IMAGING REPORT ---
ABD/PELVIS IV CONTRAST ONLY HISTORY:86 yearsFemaletrauma acute right-sided rib pain. COMPARISON: 12/03/2016 CT. TECHNIQUE: Multiple axial CT images of the abdomen were obtained following the administration of 93 mL Optiray 320. FINDINGS: There are acute minimally angulated nondisplaced fractures of the lateral right 7th through 10th ribs. Groundglass opacity adjacent to the seventh rib fracture is noted within the lateral basal segment right lower lobe suggesting pulmonary contusion is seen on image 71 of the axial series. No associated pneumothorax identified. Coronary arterial calcifications are partially imaged. No pneumoperitoneum identified. The bladder, spleen, pancreas and adrenal glands appear to be unremarkable. Low attenuating nonspecific focus is seen within the dome of the liver, 3 mm which is too small to characterize and appears unchanged from comparison. Mild to moderate atrophy of the right kidney is again seen with vascular calcifications. Extrarenal pelvis on the right is noted. No hydronephrosis. There is extensive atherosclerotic plaquing of the abdominal aorta which is tortuous. No bulky retroperitoneal adenopathy. Urinary bladder is unremarkable. Prior hysterectomy. Moderate sized hiatal hernia with partially intrathoracic stomach. No bowel obstruction. Noninflamed colonic diverticula are seen. Aside from the previously mentioned rib fractures, the remaining bones appear intact. Approximately 30% anterior endplate compression deformity of the T12 vertebral body is noted, better evaluated on comparison thoracic spine study. IMPRESSION: 1. Acute minimally angulated nondisplaced fractures of the lateral right 7th through 10th ribs. Small groundglass opacity adjacent to the seventh rib fracture within the lateral basal segment of the right lower lobe suggests associated pulmonary contusion without pneumothorax identified. 2. 30% anterior endplate compression deformity of the T12 vertebral body is better evaluated on thoracic spine study of same day. 3. Additional incidental findings as above. The above report was generated using voice recognition software. It may contain grammatical, syntax or spelling errors. Electronically signed by: Cornelio Thompson 04/06/2017 8:49 AM Dictated Date/Time: 04/06/2017 8:39 AM
--- NOTE | 2017-04-06 08:51 | DIAGNOSTIC IMAGING REPORT ---
ADDENDUM ADDENDUM: The chronic impression deformity in the thoracic spine is seen at T12 not T11. The remainder of the findings are unchanged. Electronically signed by: Armando Valdes M.D. 04/06/2017 9:02 AM Dictated Date/Time: 04/06/2017 9:[address] SCAN OF THE CHEST WITH IV CONTRAST CLINICAL HISTORY: Fall. Right-sided chest wall pain. COMPARISON STUDY: Chest x-ray dated 02/18/2016. Abdominal CT dated 12/03/2016. TECHNIQUE: Following the IV administration of 93 cc of Optiray 320, CT scan of the thorax was performed from the thoracic inlet to the upper abdomen. Images are reviewed in the axial, sagittal, and coronal planes. IV contrast was administered without complication. The examination is degraded by streak artifact from the arms which could not be elevated above the chest. CT DOSE: 1214.39 mGy.cm FINDINGS: Thyroid: Imaged portions of the thyroid gland are normal in size and attenuation. Thoracic aorta: There is atherosclerotic calcification of the thoracic aorta, which is normal in caliber and demonstrates standard 3-vessel arch anatomy. No dissection is seen. Pulmonary vasculature: The pulmonary trunk is normal in caliber. There are no filling defects identified in the central pulmonary vessels to indicate pulmonary embolus. Note that this examination was not protocoled for evaluation of the pulmonary arteries. Heart: The heart is mildly enlarged and without pericardial effusion. There are coronary artery calcifications. Lungs and pleural spaces: Evaluation of the lung parenchyma is degraded by respiratory motion artifact. There is no airspace consolidation, pleural effusion, or pneumothorax. Dependent atelectasis is observed. The trachea and central airways are clear. Mediastinum: There is no mediastinal hematoma or lymphadenopathy. Becka: Clear. Axillae: There is no axillary lymphadenopathy. Upper abdomen: There is a moderate hiatal hernia. The visualized kidneys demonstrate cortical atrophy. Nonobstructing calculi are noted in the right kidney and there is right-sided hydronephrosis. Surgical clips are noted in the left breast. Skeletal structures: The skeletal structures are osteopenic. No lytic or blastic bony lesions are seen. Degenerative change and scoliosis are noted in the thoracic spine. There are acute and nondistracted right lateral 7th through 9th rib fractures. No additional acute fracture is seen. A posterior right 10th rib fracture is chronic and unchanged. There is a chronic moderate compression deformity of T11. This was also seen on 12/03/2016. There are numerous healed left-sided rib fractures. IMPRESSION: 1. There is no airspace consolidation, pleural effusion, or pneumothorax. 2. There are acute nondistracted right lateral 7th through 9th rib fractures. 3. Additional chronic bilateral rib fractures and a chronic compression deformity of T11 are similar to previous. 4. Cardiomegaly. 5. Right-sided hydronephrosis is similar to previous. Right renal calculi are partially visualized. See report of abdominal CT performed concurrently for detailed findings. 6. Hiatal hernia. Electronically signed by: Armando Valdes M.D. 04/06/2017 8:49 AM Dictated Date/Time: 04/06/2017 8:38 AM
--- NOTE | 2017-04-06 09:02 | DIAGNOSTIC IMAGING REPORT ---
CT SCAN OF THE THORACIC SPINE WITHOUT IV CONTRAST CLINICAL HISTORY: Fall. COMPARISON STUDY: CT scan of the thoracic spine dated 02/11/2016. CT scan of the chest performed concurrently on 04/06/2017. TECHNIQUE: CT scan of the thoracic spine is performed from the lower cervical spine to the upper lumbar spine. Images are reviewed in the axial, sagittal, and coronal planes. IV contrast was not administered specifically for this examination. There is IV contrast present from the concurrently performed CT scan of the chest. FINDINGS: The skeletal structures are osteopenic. There is no evidence of fracture or malalignment involving the thoracic spine. A moderate chronic compression deformity of T12 with mildly retropulsed fragments is unchanged from previous. Vertebral body height is otherwise maintained throughout the thoracic spine. S-shaped thoracolumbar scoliosis is observed. There are anterior and lateral marginal osteophytes seen throughout. The transverse and spinous processes appear intact. There are healed bilateral posterior rib fractures. Mild multilevel degenerative disc space narrowing is observed. Posterior disc osteophyte complexes are seen at T3-T4, T4-T5, T8-T9, T9-T10, and T10-T11. There is no evidence of large disc herniation. The paraspinous soft tissues are within normal limits. The visualized lung parenchyma appears clear. The heart is enlarged and there is atherosclerotic calcification of the thoracic aorta. IMPRESSION: 1. There is no evidence of acute fracture or malalignment involving the thoracic spine. 2. A chronic compression deformity of T12 is unchanged. 3. Osteopenia with spondylotic change and scoliosis as above. Electronically signed by: Armando Valdes M.D. 04/06/2017 9:01 AM Dictated Date/Time: 04/06/2017 8:55 AM
[2017-04-06] MEDS ORDERED: HYDROCODONE/ACETAMOPHEN 5/325MG TAB PO STA (09:22)
[2017-04-06] MEDS ORDERED: HYDR-5688 PO (09:43)
[2017-04-06 11:00] VITALS: BP 159/89; PULSE 79; O2SAT 91
== END 2017-04-06 11:02 | disposition home or self-care (01) ==
LOC: EDBD 06:33 → C.EDB 06:34
DX: R10.9 Unspecified abdominal pain (principal); S22.41XA Multiple fractures of ribs, right side, initial encounter for closed fracture; W19.XXXA Unspecified fall, initial encounter; Y92.011 Dining room of single-family (private) house as the place of occurrence of the external cause; E11.9 Type 2 diabetes mellitus without complications; Z87.442 Personal history of urinary calculi; Z79.899 Other long term (current) drug therapy

== ENCOUNTER → 2017-07-06 | Outpatient (CLI) | payer OTHER ==
[~2017-07-06] MED LIST changes: +AMR2 PO; -MCR5 PO
[2017-07-06 13:54] LABS: BASO % 0.5 %; BASO ABS # 0.05 K/uL (0-0.2); COMPLETE YES; EOS % 2.1 %; HEMATOCRIT 34.1 % (37-47); IG% 0.3 %; LYMPH % 18.9 %; MEAN CELL VOLUME 86.1 fL (80-100); MEAN CORPUSCULAR HEMOGLOBIN 27.5 pg (25-34); MEAN PLATELET VOLUME 10.6 fL (7.4-10.4); MONO % 9.3 %; NEUT % 68.9 %; PLATELET COUNT 284 K/uL (130-400); RED BLOOD COUNT 3.96 M/uL (4.2-5.4)
[2017-07-06 14:09] LABS: ALT/SGPT 14 U/L (12-78); BLOOD UREA NITROGEN 23 mg/dl (7-18); BUN/CREATININE RATIO 19.4 (10-20); CALCIUM 9.5 mg/dl (8.5-10.1); CARBON DIOXIDE 27 mmol/L (21-32); CHLORIDE 105 mmol/L (98-107); GLUCOSE 217 mg/dl (70-99); POTASSIUM 4.1 mmol/L (3.5-5.1); SODIUM 139 mmol/L (136-145)
[2017-07-06 14:20] LABS: ALB/GLOB RATIO 0.8 (0.9-2); ALKALINE PHOSPHATASE 118 U/L (45-117); AST/SGOT 16 U/L (15-37)
[2017-07-06 15:00] LABS: ESTIMATED AVERAGE GLUCOSE 212 mg/dl; HA1C FLAG Normal (Normal)
== END | disposition home or self-care (01) ==
LOC: C.LABBC 11:28
PROVIDERS: ATTEND Internal Medicine
DX: E11.65 Type 2 diabetes mellitus with hyperglycemia (principal); E53.8 Deficiency of other specified B group vitamins; I10 Essential (primary) hypertension; R68.89 Other general symptoms and signs; E55.9 Vitamin D deficiency, unspecified; E03.9 Hypothyroidism, unspecified; R26.9 Unspecified abnormalities of gait and mobility

== ENCOUNTER → 2017-07-12 | Outpatient (CLI) | payer OTHER ==
--- NOTE | 2017-07-13 07:36 | MAMMOGRAPHY REPORT ---
BILATERAL DIGITAL SCREENING MAMMOGRAM WITH CAD: 07/12/2017 CLINICAL HISTORY: Routine screening. Patient has no complaints. TECHNIQUE: Bilateral CC, MLO and repeat left MLO views were obtained. Current study was also evaluat ed with a Computer Aided Detection (CAD) system. COMPARISON: Comparison is made to exams dated: 07/09/2016 mammogram, 09/05/2013 mammogram, 08/28/2011 mammogram, 10/10/2013 localization, 10/10/2013 specimen, and 09/08/2013 mammogram - [facility]. BREAST COMPOSITION: There are scattered areas of fibroglandular density in both breasts. FINDINGS: A linear scar marker overlies the medial left breast, denoting an area of prior surgery. T here is expected architectural distortion, benign calcifications, and oil cyst and surgical clips in the upper inner middle one third of the left breast, at the site of prior benign surgical excision. No new suspicious mass, architectural distortion or cluster of microcalcifications is seen bilaterall y. IMPRESSION: ACR BI-RADS CATEGORY 1: NEGATIVE There is no mammographic evidence of malignancy. A 1 year screening mammogram is recommended. The pa tient will receive written notification of the results. Approximately 10% of breast cancers are not detected with mammography. A negative mammographic report should not delay biopsy if a clinically suggestive mass is present. Dominique Nuñez M.D. ay/:07/12/2017 16:01:01 Treatment Coordinator: Disha CORDERO)(Kathy), [facility] letter sent: Normal 1/2 BI-RADS Code: ACR BI-RADS Category 1: Negative
== END | disposition home or self-care (01) ==
LOC: C.MAMM 15:13
PROVIDERS: ATTEND Internal Medicine
DX: Z12.31 Encounter for screening mammogram for malignant neoplasm of breast (principal)

== ENCOUNTER → 2017-12-02 | Outpatient (CLI) | payer OTHER ==
[~2017-12-02] MED LIST changes: -HYDR-5688 PO; +RANI150T85 PO; -ZNTT/150 PO
[2017-12-02 16:43] LABS: BASO % 0.4 %; BASO ABS # 0.04 K/uL (0-0.2); EOS % 1.7 %; EOS ABS # 0.16 K/uL (0-0.5); HEMATOCRIT 34.2 % (37-47); IG# 0.04 K/uL (0.00-0.02); LYMPH % 19.9 %; LYMPH ABS # 1.91 K/uL (1.2-3.4); MEAN CELL VOLUME 87.5 fL (80-100); MEAN CORPUSCULAR HEMOGLOBIN 28.1 pg (25-34); MEAN CORPUSCULAR HGB CONC 32.2 g/dl (32-36); MONO % 9.6 %; MONO ABS # 0.92 K/uL (0.11-0.59); NEUT ABS # 6.53 K/uL (1.4-6.5); PLATELET COUNT 271 K/uL (130-400)
[2017-12-02 17:14] LABS: ALBUMIN 3.6 gm/dl (3.4-5.0); ALKALINE PHOSPHATASE 103 U/L (45-117); ALT/SGPT 19 U/L (12-78); AST/SGOT 17 U/L (15-37); BLOOD UREA NITROGEN 26 mg/dl (7-18); CALCIUM 9.2 mg/dl (8.5-10.1); CARBON DIOXIDE 28 mmol/L (21-32); CREATININE 1.11 mg/dl (0.60-1.20); GLUCOSE 175 mg/dl (70-99); POTASSIUM 3.8 mmol/L (3.5-5.1); SODIUM 138 mmol/L (136-145); TOTAL PROTEIN 7.7 gm/dl (6.4-8.2)
[2017-12-03 07:01] LABS: HEMOGLOBIN A1C 8.9 % (4.5-5.6)
== END | disposition home or self-care (01) ==
LOC: C.LABBC 12:32
PROVIDERS: ATTEND Internal Medicine
DX: E11.9 Type 2 diabetes mellitus without complications (principal); E11.65 Type 2 diabetes mellitus with hyperglycemia; I10 Essential (primary) hypertension; R26.89 Other abnormalities of gait and mobility; R68.89 Other general symptoms and signs; R26.9 Unspecified abnormalities of gait and mobility; G31.84 Mild cognitive impairment of uncertain or unknown etiology

== ENCOUNTER → 2018-04-26 | Outpatient (CLI) | payer OTHER ==
[2018-04-26 18:01] LABS: ALBUMIN 3.6 gm/dl (3.4-5.0); ALKALINE PHOSPHATASE 76 U/L (45-117); ALT/SGPT 18 U/L (12-78); AST/SGOT 18 U/L (15-37); BLOOD UREA NITROGEN 21 mg/dl (7-18); CALCIUM 8.6 mg/dl (8.5-10.1); CARBON DIOXIDE 27 mmol/L (21-32); CREATININE 1.17 mg/dl (0.60-1.20); GLUCOSE 288 mg/dl (70-99); POTASSIUM 4.1 mmol/L (3.5-5.1); SODIUM 137 mmol/L (136-145); TOTAL PROTEIN 7.7 gm/dl (6.4-8.2)
[2018-04-27 07:22] LABS: HEMOGLOBIN A1C 9.2 % (4.5-5.6)
== END | disposition home or self-care (01) ==
LOC: C.LAB1850 16:09
PROVIDERS: ATTEND Internal Medicine
DX: E11.65 Type 2 diabetes mellitus with hyperglycemia (principal); I10 Essential (primary) hypertension; R26.9 Unspecified abnormalities of gait and mobility; G31.84 Mild cognitive impairment of uncertain or unknown etiology; R26.89 Other abnormalities of gait and mobility

== ENCOUNTER 2019-11-08 09:09 | Inpatient (IN) ==
--- NOTE | 2019-11-08 10:08 | XRay Report ---
XR elbow LT 2V CLINICAL HISTORY: Left elbow pain status post trauma COMPARISON: 05/26/2018 DISCUSSION: The examination is limited from a positioning standpoint. No fractures or dislocations ar e visualized. The fat pads are not significantly displaced. IMPRESSION: Technically limited study. No acute fractures or dislocations identified ACT 112: Negative or not required by law. Electronically signed by: Cristo Hudson M.D. 11/08/2019 10:06 AM
--- NOTE | 2019-11-08 10:12 | XRay Report ---
LEFT SHOULDER 2 VIEWS CLINICAL HISTORY: Fall with left shoulder injury. FINDINGS: 2 views of the left shoulder are compared to study dated 05/26/2018. The skeletal structures are osteopenic. There is an impacted and comminuted fracture of the left humeral head and neck with numerous distracted fragments. There is mild offset of the humeral shaft. Overlying soft tissue edema is noted. The glenohumeral articulation appears maintained. Productive degenerative change is noted at the acromioclavicular joint. The visualized left lung parenchyma appears clear noting basilar atel ectasis. Surgical clips project over the left lower chest wall. IMPRESSION: Impacted and comminuted fracture of the left humeral head and neck as above. Electronically signed by: Armando Valdes M.D. 11/08/2019 10:10 AM
[2019-11-08] MEDS ORDERED: HYDROmorphone INJ 0.5 MG/0.5 ML SYR IV STA (10:35)
[2019-11-08 10:46] LABS: Basophils # (auto) 0.02 K/uL (0-0.2); Basophils % (auto) 0.1 %; Eosinophils # (auto) 0.04 K/uL (0-0.5); Eosinophils % (auto) 0.3 %; Hematocrit (blood only) 33.8 % (37-47); Immature Granulocytes # (auto) 0.11 K/uL (0.00-0.02); Immature Granulocytes % (auto) 0.7 %; Lymphocytes # (auto) 1.23 K/uL (1.2-3.4); Lymphocytes % (auto) 8.1 %; Mean Corpuscular Hemoglobin 28.1 pg (25-34); Mean Corpuscular Hgb Conc 32.5 g/dL (32-36); Mean Corpuscular Volume 86.4 fL (80-100); Monocytes % (auto) 5.9 %; Neutrophils # (auto) 12.84 K/uL (1.4-6.5); Neutrophils % (auto) 84.9 %; Platelet Count 254 K/uL (130-400); RDW Coefficient of Variation 13.7 % (11.5-14.5); RDW Standard Deviation 43.5 fL (36.4-46.3); Red Blood Count 3.91 M/uL (4.2-5.4); White Blood Count 15.14 K/uL (4.8-10.8)
--- NOTE | 2019-11-08 11:00 | CT Scan Report ---
CT head/brain wo con CLINICAL HISTORY: Head trauma. Head pain. COMPARISON STUDY: 05/26/2018 TECHNIQUE: Axial CT of the brain is performed from the vertex to the skull base. IV contrast was not administered for this examination. A dose lowering technique was utilized adhering to the principles of ALARA. CT DOSE: 537.48 mGy.cm FINDINGS: No intra or extra-axial mass lesions are visualized. There is no CT evidence of acute cortical infarc tion. There is no evidence of midline shift. There is no acute hemorrhage. No calvarial fractures ar e visualized. There are patchy white matter hypodensities likely on a small vessel basis. There is no evidence of pathologic ventricular dilatation. There is no evidence of acute sinusitis IMPRESSION: No acute intracranial findings ACT 112: Negative or not required by law. Electronically signed by: Cristo Hudson M.D. 11/08/2019 10:59 AM
[2019-11-08 11:07] LABS: Albumin Level 3.1 gm/dl (3.4-5.0); BUN Creatinine Ratio 13.4 (10-20); Calcium 9.3 mg/dl (8.5-10.1); Creatinine Clr Calc Pharmacy 21.6 ml/min; Est GFR (African American) 39.1; Est GFR (Non-African American) 33.7; Magnesium 1.7 mg/dl (1.8-2.4)
[2019-11-08 11:13] LABS: Albumin Globulin Ratio 0.7 (0.9-2); Bilirubin,Total 0.5 mg/dl (0.2-1); Globulin 4.3 gm/dl (2.5-4.0); Total Protein 7.4 gm/dl (6.4-8.2)
[2019-11-08 11:23] LABS: Thyroid Stimulating Hormone 4.89 uIu/ml (0.300-4.500)
[2019-11-08 11:39] LABS: T4 Free Thyroxine 1.19 ng/dl (0.8-1.6)
--- NOTE | 2019-11-08 11:44 | Emergency Department Note ---
History of Present Illness General Chief complaint: Fall Time Seen by Provider: 11/08/19 09:46 History of Present Illness Maximum Pain Intensity: 9 Pt seen and examined in conjunction with Dr. Washington. Please see their note for any medical decision making. Home Medications Home Medications Medication Instructions Recorded Confirmed Type blood sugar diagnostic #100 ea 05/12/19 06/27/19 Rx amlodipine 2.5 mg tablet 2.5 mg PO DAILY #90 tab 06/22/19 11/08/19 History blood sugar diagnostic #10 ea 06/22/19 06/22/19 History cholecalciferol (vitamin D3) 50 2,000 units PO DAILY cap 06/22/19 11/08/19 History mcg (2,000 unit) capsule escitalopram oxalate 10 mg tablet 10 mg PO DAILY #90 tab 06/22/19 11/08/19 History ferrous sulfate 325 mg (65 mg 325 mg PO DAILY tab 06/22/19 11/08/19 History iron) tablet lancets 33 gauge #100 ea 06/22/19 06/22/19 History linagliptin 5 mg tablet 5 mg PO DAILY #30 tab 06/22/19 11/08/19 History metformin 1,000 mg tablet 1,000 mg PO BID #180 tab 06/22/19 11/08/19 History ondansetron 4 mg disintegrating 4 mg PO Q12H PRN #60 tab 06/22/19 11/08/19 History tablet vitamin A-vitamin C-vit E-min 1 tab PO DAILY 06/22/19 11/08/19 History glimepiride 2 mg tablet 2 mg PO DAILY #90 tab 07/14/19 11/08/19 Rx lisinopril 20 1 tab PO DAILY #90 tab 07/31/19 11/08/19 Rx mg-hydrochlorothiazide 12.5 mg tablet omeprazole 20 mg capsule,delayed 20 mg PO DAILY #90 cap 08/07/19 11/08/19 Rx release fish oil-dha-epa 1 cap PO DAILY 11/08/19 11/08/19 History hydroxyzine HCl 10 mg PO BID 11/08/19 11/08/19 History pravastatin [Pravachol] 40 mg PO DAILY 11/08/19 11/08/19 History Allergies Allergy/AdvReac Type Severity Reaction Status Date / Time amoxicillin Allergy Intermediate RASH Verified 11/08/19 10:31 cephalexin Allergy Unknown RASH Verified 11/08/19 10:31 Past Med/Surg History Medical History Diabetes mellitus (Chronic) Gait abnormality (Chronic) HTN (hypertension) (Chronic) Hypothyroidism (Chronic) Kidney stones (Resolved) MCI (mild cognitive impairment) (Chronic) Vitamin B12 deficiency (dietary) anemia (Chronic) Vitamin D deficiency (Chronic) Surgical History H/O colonoscopy History of back surgery tail bone History of bladder surgery History of cataract surgery History of oral surgery S/P appendectomy (Resolved) S/P hysterectomy (Resolved) Family History Mother Diabetes Hypertension Brother Diabetes Sister Breast cancer Social History (Updated 11/08/19 @ 15:29 by Isabel Mike DO) Preferred Language: Kyrgyz Communication Ability: Effective Visual Impairment: Diminished Churn Operator Required: No Beliefs That Will Affect Care: None marital status: / Current Living Situation: Alone current occupational status: retired Other Information That Helps Us Care for You: No Feels Safe at Home: Yes Safety Concerns: Feels Safe At This Time Smoking Status: Former smoker Tobacco Type: cigarettes ; Hx Alcohol Use: No Hx Substance Use: No caffeine: Yes Seatbelt Use: always Physical Exam Vital Signs Vital Signs - 24 hr 11/08/19 09:20 11/08/19 09:22 11/08/19 09:30 Temperature 36.7 C Temperature Source Oral Pulse Rate 98 H 103 H 99 H Pulse Rate [Apical] Pulse Rate from SpO2 Sensor 102 H 103 H 99 H Pulse Rhythm Regular Respiratory Rate 23 24 15 Respiratory Effort / Characteristics Non-Labored Respiratory Depth Normal Blood Pressure 194/84 H 194/84 H Blood Pressure [Right Arm] Blood Pressure Mean 113 120 Blood Pressure Mean [Right Arm] Pulse Oximetry 97 99 98 Oxygen Delivery Method Nasal Cannula Oxygen Flow Rate 2 Sepsis Recent Fever Within 48 Hours No Sepsis Action Taken by Nursing No Action Required 11/08/19 10:00 11/08/19 10:01 11/08/19 10:22 Temperature Temperature Source Pulse Rate 95 H 96 H Pulse Rate [Apical] Pulse Rate from SpO2 Sensor 94 H 96 H Pulse Rhythm Respiratory Rate 16 13 Respiratory Effort / Characteristics Respiratory Depth Blood Pressure 173/94 H Blood Pressure [Right Arm] Blood Pressure Mean 114 Blood Pressure Mean [Right Arm] Pulse Oximetry 98 99 97 Oxygen Delivery Method Room Air Oxygen Flow Rate Sepsis Recent Fever Within 48 Hours Sepsis Action Taken by Nursing 11/08/19 10:30 11/08/19 10:39 11/08/19 10:44 Temperature Temperature Source Pulse Rate 100 H 98 H Pulse Rate [Apical] 100 H Pulse Rate from SpO2 Sensor 99 H 98 H Pulse Rhythm Respiratory Rate 18 17 18 Respiratory Effort / Characteristics Respiratory Depth Blood Pressure 158/70 H Blood Pressure [Right Arm] 173/94 H Blood Pressure Mean 122 Blood Pressure Mean [Right Arm] 120 Pulse Oximetry 99 99 99 Oxygen Delivery Method Room Air Oxygen Flow Rate Sepsis Recent Fever Within 48 Hours Sepsis Action Taken by Nursing 11/08/19 11:03 11/08/19 11:04 11/08/19 11:30 Temperature Temperature Source Pulse Rate 101 H 101 H 102 H Pulse Rate [Apical] Pulse Rate from SpO2 Sensor 101 H 101 H 101 H Pulse Rhythm Respiratory Rate 18 20 18 Respiratory Effort / Characteristics Respiratory Depth Blood Pressure 176/64 H 172/77 H Blood Pressure [Right Arm] Blood Pressure Mean 132 124 Blood Pressure Mean [Right Arm] Pulse Oximetry 97 97 97 Oxygen Delivery Method Oxygen Flow Rate Sepsis Recent Fever Within 48 Hours Sepsis Action Taken by Nursing 11/08/19 11:31 11/08/19 12:00 11/08/19 12:01 Temperature Temperature Source Pulse Rate 102 H 100 H 101 H Pulse Rate [Apical] Pulse Rate from SpO2 Sensor 101 H Pulse Rhythm Respiratory Rate 19 20 22 Respiratory Effort / Characteristics Respiratory Depth Blood Pressure 192/92 H Blood Pressure [Right Arm] Blood Pressure Mean 130 Blood Pressure Mean [Right Arm] Pulse Oximetry 96 Oxygen Delivery Method Oxygen Flow Rate Sepsis Recent Fever Within 48 Hours Sepsis Action Taken by Nursing 11/08/19 12:30 11/08/19 12:31 11/08/19 13:00 Temperature Temperature Source Pulse Rate 103 H 102 H 102 H Pulse Rate [Apical] Pulse Rate from SpO2 Sensor 102 H 102 H 103 H Pulse Rhythm Respiratory Rate 20 18 16 Respiratory Effort / Characteristics Respiratory Depth Blood Pressure 149/84 H 169/77 H Blood Pressure [Right Arm] Blood Pressure Mean 112 126 Blood Pressure Mean [Right Arm] Pulse Oximetry 98 97 98 Oxygen Delivery Method Oxygen Flow Rate Sepsis Recent Fever Within 48 Hours Sepsis Action Taken by Nursing 11/08/19 13:01 11/08/19 13:30 11/08/19 13:31 Temperature Temperature Source Pulse Rate 102 H 103 H 105 H Pulse Rate [Apical] Pulse Rate from SpO2 Sensor 102 H 102 H 106 H Pulse Rhythm Respiratory Rate 19 18 14 Respiratory Effort / Characteristics Respiratory Depth Blood Pressure 160/69 H Blood Pressure [Right Arm] Blood Pressure Mean 121 Blood Pressure Mean [Right Arm] Pulse Oximetry 98 98 99 Oxygen Delivery Method Oxygen Flow Rate Sepsis Recent Fever Within 48 Hours Sepsis Action Taken by Nursing 11/08/19 14:00 11/08/19 14:01 11/08/19 14:30 Temperature Temperature Source Pulse Rate 102 H 103 H 104 H Pulse Rate [Apical] Pulse Rate from SpO2 Sensor 102 H 104 H 104 H Pulse Rhythm Respiratory Rate 10 L 18 13 Respiratory Effort / Characteristics Respiratory Depth Blood Pressure 145/71 H 139/71 Blood Pressure [Right Arm] Blood Pressure Mean 89 95 Blood Pressure Mean [Right Arm] Pulse Oximetry 99 98 99 Oxygen Delivery Method Oxygen Flow Rate Sepsis Recent Fever Within 48 Hours Sepsis Action Taken by Nursing 11/08/19 14:31 Temperature Temperature Source Pulse Rate 97 H Pulse Rate [Apical] Pulse Rate from SpO2 Sensor 99 H Pulse Rhythm Respiratory Rate 22 Respiratory Effort / Characteristics Respiratory Depth Blood Pressure Blood Pressure [Right Arm] Blood Pressure Mean Blood Pressure Mean [Right Arm] Pulse Oximetry 98 Oxygen Delivery Method Oxygen Flow Rate Sepsis Recent Fever Within 48 Hours Sepsis Action Taken by Nursing Course Administered Medications Morphine Sulfate (Morphine Sulfate) 0.5 mg IV Q4H PRN PRN Reason: Pain Stop: 11/22/19 15:22 Last Admin: 11/08/19 15:36 Dose: 0.5 mg Documented by: [id number] Discontinued Medications Hydromorphone HCl (Dilaudid) 0.25 mg IV NOW STA Stop: 11/08/19 10:36 Last Admin: 11/08/19 10:44 Dose: 0.25 mg Documented by: [id number] Ciprofloxacin (Cipro) 400 mg in 200 mls @ 200 mls/hr IV NOW STA Stop: 11/08/19 15:33 Last Infusion: 11/08/19 16:44 Dose: 0 mls/hr Documented by: [id number] Admin: 11/08/19 14:59 Dose: 200 mls/hr Documented by: [id number] Ondansetron HCl (Zofran) 4 mg IV NOW STA Stop: 11/08/19 16:33 Last Admin: 11/08/19 17:04 Dose: Not Given Documented by: [id number] Medical Decision Making Laboratory Data Result diagrams: 11/08/19 10:35 11/08/19 10:35 Lab Results 11/08/19 11/08/19 11/08/19 Range/Units 10:35 10:35 12:30 WBC 15.14 H (4.8-10.8) K/uL RBC 3.91 L (4.2-5.4) M/uL Hgb 11.0 L (12.0-16.0) g/dL Hct 33.8 L (37-47) % MCV 86.4 (80-100) fL MCH 28.1 (25-34) pg MCHC 32.5 (32-36) g/dL RDW Std Deviation 43.5 (36.4-46.3) fL RDW Coeff of Otis 13.7 (11.5-14.5) % Plt Count 254 (130-400) K/uL MPV 10.0 (7.4-10.4) fL Immature Gran % (Auto) 0.7 % Neut % (Auto) 84.9 % Lymph % (Auto) 8.1 % Pettis % (Auto) 5.9 % Eos % (Auto) 0.3 % Baso % (Auto) 0.1 % Immature Gran # (Auto) 0.11 H (0.00-0.02) K/uL Neut # (Auto) 12.84 H (1.4-6.5) K/uL Lymph # (Auto) 1.23 (1.2-3.4) K/uL Pettis # (Auto) 0.90 H (0.11-0.59) K/uL Eos # (Auto) 0.04 (0-0.5) K/uL Baso # (Auto) 0.02 (0-0.2) K/uL Sodium 135 L (136-145) mmol/L Potassium 5.0 (3.5-5.1) mmol/L Chloride 102 (98-107) mmol/L Carbon Dioxide 23 (21-32) mmol/L Anion Gap 10.0 (3-11) BUN 19 H (7-18) mg/dl Creatinine 1.40 H (0.6-1.2) mg/dl Est Cr Clr Drug Dosing 21.6 ml/min Est GFR ( Amer) 39.1 Est GFR (Non-Af Amer) 33.7 BUN/Creatinine Ratio 13.4 (10-20) Glucose 320 H* (70-99) mg/dl Calcium 9.3 (8.5-10.1) mg/dl Magnesium 1.7 L (1.8-2.4) mg/dl Total Bilirubin 0.5 (0.2-1) mg/dl AST 23 (15-37) U/L ALT 22 (12-78) U/L Alkaline Phosphatase 100 (45-117) U/L Total Protein 7.4 (6.4-8.2) gm/dl Albumin 3.1 L (3.4-5.0) gm/dl Globulin 4.3 H (2.5-4.0) gm/dl Albumin/Globulin Ratio 0.7 L (0.9-2) Beta-Hydroxybutyric Acd (0.2-2.81) mg/dl TSH 4.890 H (0.300-4.500) uIu/ml Free T4 1.19 (0.8-1.6) ng/dl Urine Color Yellow Urine Appearance Cloudy A (Clear) Urine pH 5.5 (4.5-7.5) Ur Specific Eaton 1.017 (1.000-1.030) Urine Protein Trace H (Negative) Urine Glucose (UA) 3+ H (Negative) Urine Ketones Trace H (Negative) Urine Blood Trace H (Negative) Urine Nitrite Negative (Negative) Urine Bilirubin Negative (Negative) Urine Urobilinogen Negative (Negative) Ur Leukocyte Esterase 3+ H (Negative) Urine WBC (Auto) >30 H (0-5) /hpf Urine RBC (Auto) 0-4 (0-4) /hpf U Hyaline Cast (Auto) 0 (0-5) /lpf U Epithel Cells (Auto) 5-10 H (0-5) /lpf Urine Bacteria (Auto) 3+ H (Negative) MDM Narrative Pt seen and examined in conjunction with Dr. Washington. Please see their note for any medical decision making. Impression & Plan Fracture of left humerus, Multiple falls, Generalized weakness, Acute UTI Discharge Plan Visit Data *Final* Discharge Date/Time: 11/08/19 16:45 Chief Complaint: Fall ED Provider: Garrett Melgar ED Midlevel Provider: Marla Denis Discharge Problem: Fracture of left humerus, Multiple falls, Generalized weakness, Acute UTI Patient Disposition: Admitted As Inpatient Discharge Instructions Interventions: ED Discharge Assessment Last Done: 11/08/19 16:45 Resident Activity Tracking Resident Involvement: Resident Care Provided Care Provided: Adult ED Discharge Problem: Fracture of left humerus Qualifiers: Encounter type: initial encounter Humerus Location: proximal Fracture type: closed Fracture morphology: other fracture Fracture alignment: nondisplaced Qualified Code(s): S42.295A - Other nondisplaced fracture of upper end of left humerus, initial encounter for closed fracture
--- NOTE | 2019-11-08 12:09 | XRay Report ---
XR knee LT 3V HISTORY: 89 years-old Female fall on left knee acute left knee pain status post fall COMPARISON: 05/26/2018 TECHNIQUE: 3 views of the left knee FINDINGS: Demineralized appearance of the bones. 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 Large enthesophytes of the superior and inferior aspects of the patella at the patellar and quadriceps insertion sites. Trace joint effusion suspected. No acute fracture, disl ocation or opaque foreign body. Mild anteromedial soft tissue swelling. Arterial calcifications are n oted. IMPRESSION: Mild anteromedial soft tissue swelling without acute fracture or dislocation. ACT 112: Negative or not required by law. The above report was generated using voice recognition software. It may contain grammatical, syntax o r spelling errors. Electronically signed by: Cornelio Thompson M.D. 11/08/2019 12:08 PM
--- NOTE | 2019-11-08 12:22 | XRay Report ---
LEFT HAND 3 VIEWS CLINICAL HISTORY: Fall with left hand injury. FINDINGS: 3 views of the left hand are obtained. No prior studies are available for comparison at the time of dictation. The skeletal structures are osteopenic. There is cortical irregularity at the bas e of the fifth proximal phalanx. No additional findings are concerning for acute fracture. Osteoarthr itic change is seen involving the interphalangeal joints, distal greater than proximal. Erosive arthr itis is noted at the second through fifth distal interphalangeal joints. Mild osteophytic arthritic c hanges seen at the first carpometacarpal and metacarpophalangeal joints. Mild dorsal soft tissue rogers a is noted at the level of the metacarpal heads. Soft tissue edema is also noted in the fingers. Athe rosclerotic calcification is seen in the regional arteries. IMPRESSION: 1. There is cortical irregularity at the base of the fifth proximal phalanx. Nondistracted fracture i s not excluded. Correlate for point tenderness. 2. No additional findings are concerning for fracture. 3. Osteopenia and degenerative change as above. Electronically signed by: Armando Valdes M.D. 11/08/2019 12:21 PM
--- NOTE | 2019-11-08 12:49 | Electrocardiogram Report ---
Test Reason : Blood Pressure : / mmHG Vent. 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
[2019-11-08 12:53] LABS: Appearance Urine Cloudy (Clear); Bacteria Urine Automated 3+ (Negative); Bilirubin Urine Negative (Negative); Blood Urine Trace (Negative); Cast Urine Automated 0 /lpf (0-5); Color Urine Yellow; Glucose Urine UA 3+ (Negative); Ketones Urine Trace (Negative); Leukocyte Esterase Urine 3+ (Negative); Nitrite Urine Negative (Negative); Protein Urine Trace (Negative); RBC Urine Automated 0-4 /hpf (0-4); Specific Gravity Urine 1.017 (1.000-1.030); Urobilinogen Urine Negative (Negative); WBC Urine Automated >30 /hpf (0-5); pH Urine 5.5 (4.5-7.5)
[2019-11-08] MEDS ORDERED: CIPROFLOXACIN 400 MG/200 ML BAG IV STA (14:34)
--- NOTE | 2019-11-08 15:31 | History & Physical Report ---
Date of Service November 08, 2019 Assessment & Plan (1) Multiple falls: Falls x2 on 11/08 L humeral fx, ortho c/s pending L 5th prox phalange displacement PT/OT pending Balance issue possibly related to UTI No hx of anticoagulation use Does use fish oil at baseline, last dose 11/07 AM (2) Acute UTI: Abn UA, + leuk est, neg nitrites Urine cx pending Started on cipro in the ED, will continue until cx is returned (3) Diabetes mellitus: Holding PO meds for now in case of OR and in the setting of PEPE SSI PRN A1c pending BS labile in the ED, did not take AM meds due to falls (4) HTN (hypertension): continue home meds (5) Hypothyroidism: continue home meds TSH with mild elevation, no change in meds at this time (6) MCI (mild cognitive impairment): Noted (7) Hyperlipidemia: Holding statin (8) GERD (gastroesophageal reflux disease): continue home meds (9) Hypomagnesemia: Replace and monitor (10) ARF (acute renal failure): Baseline cr is WNL Cr 1.4 on admission Monitor with gentle IVF Holding nephrotoxic meds (11) 1st degree AV block: Not seen on prior EKGs Does not appear to be sx from this (12) DVT prophylaxis: SCDs History of Present Illness Primary Care Provider: Kael Cruz MD 89 y/o F c/o falls. Pt states she fell today x2. She states she just lost her balance on both occasions. Denies LOC/syncope/pre-syncope. She did hit the L side of the back of her head with one fall. She states that there have been no other recent falls. She states that yesterday was a usual day for her. She was able to manage her usual daily activities without issue. She currently has pain to the L UE. She did develop nausea leading to one episode of emesis while in the ED. None prior. She states her stools have been a bit loose recently. Pt denies fever, SOB, chest pain, abd pain, LE pain or swelling. Pt states she only smoked in social settings when she was much younger and "out with the girls". It was never a steady habit. Allergies Allergy/AdvReac Type Severity Reaction Status Date / Time amoxicillin Allergy Intermediate RASH Verified 11/08/19 10:31 cephalexin Allergy Unknown RASH Verified 11/08/19 10:31 Home Medications Home Medications Medication Instructions Recorded Confirmed Type blood sugar diagnostic #100 ea 05/12/19 06/27/19 Rx amlodipine 2.5 mg tablet 2.5 mg PO DAILY #90 tab 06/22/19 11/08/19 History blood sugar diagnostic #10 ea 06/22/19 06/22/19 History cholecalciferol (vitamin D3) 50 2,000 units PO DAILY cap 06/22/19 11/08/19 History mcg (2,000 unit) capsule escitalopram oxalate 10 mg tablet 10 mg PO DAILY #90 tab 06/22/19 11/08/19 H istory ferrous sulfate 325 mg (65 mg 325 mg PO DAILY tab 06/22/19 11/08/19 History iron) tablet lancets 33 gauge #100 ea 06/22/19 06/22/19 History linagliptin 5 mg tablet 5 mg PO DAILY #30 tab 06/22/19 11/08/19 History metformin 1,000 mg tablet 1,000 mg PO BID #180 tab 06/22/19 11/08/19 History ondansetron 4 mg disintegrating 4 mg PO Q12H PRN #60 tab 06/22/19 11/08/19 History tablet vitamin A-vitamin C-vit E-min 1 tab PO DAILY 06/22/19 11/08/19 History glimepiride 2 mg tablet 2 mg PO DAILY #90 tab 07/14/19 11/08/19 Rx lisinopril 20 1 tab PO DAILY #90 tab 07/31/19 11/08/19 Rx mg-hydrochlorothiazide 12.5 mg tablet omeprazole 20 mg capsule,delayed 20 mg PO DAILY #90 cap 08/07/19 11/08/19 Rx release fish oil-dha-epa 1 cap PO DAILY 11/08/19 11/08/19 History hydroxyzine HCl 10 mg PO BID 11/08/19 11/08/19 History pravastatin [Pravachol] 40 mg PO DAILY 11/08/19 11/08/19 History Past Med/Surg History Medical History Diabetes mellitus (Chronic) Gait abnormality (Chronic) HTN (hypertension) (Chronic) Hypothyroidism (Chronic) Kidney stones (Resolved) MCI (mild cognitive impairment) (Chronic) Vitamin B12 deficiency (dietary) anemia (Chronic) Vitamin D deficiency (Chronic) Surgical History H/O colonoscopy History of back surgery tail bone History of bladder surgery History of cataract surgery History of oral surgery S/P appendectomy (Resolved) S/P hysterectomy (Resolved) Family History Mother Diabetes Hypertension Brother Diabetes Sister Breast cancer Social History (Updated 11/08/19 @ 15:29 by Isabel Mike DO) Preferred Language: Georgian Communication Ability: Effective Visual Impairment: Diminished Director [employer] News Required: No Beliefs That Will Affect Care: None marital status: / Current Living Situation: Alone current occupational status: retired Other Information That Helps Us Care for You: No Feels Safe at Home: Yes Safety Concerns: Feels Safe At This Time Smoking Status: Former smoker Tobacco Type: cigarettes ; Hx Alcohol Use: No Hx Substance Use: No caffeine: Yes Seatbelt Use: always Review of Systems Review of Systems: Pertinent positives and negatives reviewed in HPI--all others negative Physical Exam Constitutional: WD/WN, vitals as above Eyes: normal visual srinivasan by confrontation and + anicteric sclerae Neck: normal visual inspection and trachea midline Respiratory: normal respiratory effort, lungs clear to auscultation Cardiovascular: Rate/Rhythm: regular rate and regular rhythm Gastrointestinal (Abdomen): Inspection/Auscultation: abdomen not distended Percussion/Palpation: abdomen soft; abdomen nontender Musculoskeletal: Head/Neck/Chest: normocephalic and head atraumatic negative for edema, peripheral pulses intact L arm is painful to even slight movement, bruising noted, currently in sling Skin: no rashes, warm and dry Neurologic: awake; not confused Speech / Cognition: normal speech Psychiatric: A+Ox3, euthymic affect Results & Data Vital Signs (Past 12 Hours) Vital Signs Temp Pulse Pulse Resp BP BP Pulse Ox 11/08/19 14:31 97 H 22 98 11/08/19 14:30 104 H 13 139/71 99 11/08/19 14:01 103 H 18 98 11/08/19 14:00 102 H 10 L 145/71 H 99 11/08/19 13:31 105 H 14 99 11/08/19 13:30 103 H 18 160/69 H 98 11/08/19 13:01 102 H 19 98 11/08/19 13:00 102 H 16 169/77 H 98 11/08/19 12:31 102 H 18 149/84 H 97 11/08/19 12:30 103 H 20 98 11/08/19 12:01 101 H 22 11/08/19 12:00 100 H 20 192/92 H 11/08/19 11:31 102 H 19 96 11/08/19 11:30 102 H 18 172/77 H 97 11/08/19 11:04 101 H 20 176/64 H 97 11/08/19 11:03 101 H 18 97 11/08/19 10:44 98 H 18 158/70 H 99 11/08/19 10:39 100 H 17 173/94 H 99 11/08/19 10:30 100 H 18 99 11/08/19 10:22 97 11/08/19 10:01 96 H 13 99 11/08/19 10:00 95 H 16 173/94 H 98 11/08/19 09:30 99 H 15 98 11/08/19 09:22 36.7 C 103 H 24 194/84 H 99 11/08/19 09:20 98 H 23 194/[address] head: neg for acute XR L hand, shoulder, elbow: L humeral head fx, 5th proximal phalange displacement L knee XR: neg for acute ECG Findings: + 1st degree AV block Code Status & VTE Plan Code Status DNR/DNI VTE Prophylaxis Plan VTE Prophylaxis will be ordered: Yes PG Care Time/CCT Total # of Minutes Spent Total Time Spent with Patient: Total time spent is greater than 50% in coordination of care (as documented) at patient's floor/unit and/or counseling patient: Coding Level of Care Code 18915 Initial Inpt Care Lvl 3 Diagnoses Multiple falls R29.6 Acute UTI N39.0 Diabetes mellitus E11.9 Diabetes mellitus complication status: without complication Diabetes mellitus technician terminal and repeater insulin use: without assisted use Diabetes mellitus type: type 2 HTN (hypertension) I10 Hypertension type: essential hypertension Hypothyroidism E03.9 MCI (mild cognitive impairment) G31.84 Hyperlipidemia E78.5 GERD (gastroesophageal reflux disease) K21.9 Hypomagnesemia E83.42 ARF (acute renal failure) N17.9 1st degree AV block I44.0 DVT prophylaxis Z29.9 (1) Diabetes mellitus Diabetes mellitus complication status: without complication Diabetes mellitus assisted insulin use: without assisted use Diabetes mellitus type: type 2 Qualified Code(s): E11.9 - Type 2 diabetes mellitus without complications (2) HTN (hypertension) Hypertension type: essential hypertension Qualified Code(s): I10 - Essential (primary) hypertension
[2019-11-08] MEDS: MoRPHine SULFATE 2 MG/ML CARP IV PRN ×2 (15:36→21:17)
[2019-11-08] MEDS ORDERED: ONDANSETRON INJ 2 MG/ML 2 ML VIAL IV STA (16:32)
--- NOTE | 2019-11-08 16:57 | Emergency Department Note ---
Entered by Marielle Menendez acting as a scribe for Garrett Melgar MD ED Provider Note CHIEF COMPLAINT: Fall HISTORY OF PRESENT ILLNESS: The patient is an 89 year old female who presents to the Emergency Room with complaints of an episode of a fall occurring 2 hours ago. The patient reports that she fell twice in her home. She states that she first fell when she got out of bed but was able to get up on her won. She explains that she then fell again in her kitchen. She notes that she did hit her head upon one of her falls but tessy mccullough remember which fall it was. She adds that her contract loader found her lying in her kitchen but she told her contract loader not to pick her up as she had had back fractures before from previous falls. The patient reports that she currently has a headache. She states that her left shoulder, left hand and left knee are all painful. She explains that moving her left arm severely worsens her arm pain. She notes that she didnt get dizzy before each of her falls and that she didnt lose consciousness during each of her falls. Pt denies LOC, fevers, chills, diaphoresis, visual changes, neck pain, chest pain, breathing difficulties, nausea, vomiting, abdominal pain, melena, hematochezia, urinary symptoms, lymphadenopathy, rash, or other complaints. REVIEW OF SYSTEMS: See HPI for pertinent positives and negatives. A total of ten systems were reviewed and were otherwise negative. PMHx/PSHx: See past medical history and surgical history lists. SOCIAL HISTORY: Patient lives at home. Former smoker. . PHYSICAL EXAM: GENERAL: Patient is awake and alert but uncomfortable appearing. Awake, alert, in no distress HENT: Normocephalic, atraumatic. Oropharynx unremarkable. EYES: PERRL. Normal conjunctiva. Sclera non-icteric. NECK: Inspection normal. Non-tender. Supple. No nuchal rigidity. FROM. No masses. RESPIRATORY: Clear to auscultation. No wheezes. No rales. Normal respiratory effort. CARDIAC: Normal rate. Normal rhythm. No murmurs. No rubs. Extremities warm and well perfused. Pulses equal. No JVD. GI: Soft, non-distended. No tenderness to palpation. No rebound or guarding. No masses. RECTAL: Deferred. MUSCULOSKELETAL: Left shoulder, elbow and hand tenderness to palpation. Left hand bruising over the 4th and 5th MC. Abrasion and contusion over left knee with minimal tenderness. No left hip tenderness. Chest examination reveals no tenderness. The back is symmetrical on inspection without obvious abnormality. There is no CVA tenderness to palpation. No joint edema. LOWER EXTREMITIES: Calves are equal size bilaterally and non-tender. No edema. No discoloration. NEURO: Normal sensorium. No sensory or motor deficits noted. SKIN: No rash or jaundice noted. EMERGENCY DEPARTMENT COURSE: 1005: Past medical records reviewed. The patient was evaluated in room C8, and a complete history and physical examination were performed. 1201: I reevaluated the patient at this time. 1435: I updated the patient at this time. 1451: I discussed the patients case with Dr. Rashid VENEGAS hospitalist. She will evaluate the patient for further management. MEDICAL DECISION MAKING: Nursing notes reviewed and agree them. Additional history obtained from patient son. The patient's history was concerning for weakness, multiple falls, left arm, left shoulder, and left knee pain. Differential diagnosis: Etiologies such as fracture, contusion, dislocation, closed head injury, metabolic, infection, hypo/hyperglycemia, electrolyte abnormalities, cardiac sources, intracerebral event, toxicologic, neurologic, as well as others were entertained. Physical examination: As above. ER treatment provided: IV Lock IV Dilaudid IV Zofran IV Cipro On reassessment the patient felt better. Diagnostics interpretation by me: ECG: No acute ischemia The labs revealed mild leukocytosis on CBC. Hyperglycemia noted. Urinalysis concerning for infection. Troponin negative. Imaging studies: CT scan of the head was negative for acute process. X-ray imaging of the left shoulder revealed a closed proximal humerus fracture. X-ray imaging of the elbow was negative. X-ray imaging of the left hand reveals a proximal fifth phalanx fracture at the knuckle. X-ray ridging of the left knee is negative for acute process. The patient has several falls and is weak. She fractured her left humerus and this was put in a sling. She also fractured her left hand and this was put in Ortho-Glass splint. Consultation: A consultation was placed with the hospitalist. The case was discussed and diagnostics were reviewed. The patient was evaluated in the ER for further treatment. DEFINITIVE FRACTURE CARE NOTE: Dx: Left closed proximal humerus fracture. Left fifth phalangeal fracture, base Plan: Immobilization, rest, ice, elevation, analgesia, orthopedic follow up in 3-5 days. SPLINTING NOTE: Dx: As above Procedure: The injured extremity was identified. The patient was prepped and measured for the placement of a ulnar gutter orthoglass splint. Splint applied in the standard fashion over a layer of webril and secured using an elastic bandage. Set into a position of function. Normal neurovascular status after placement verified by me. The patient tolerated the procedure well and the care of the splint was discussed with the patient/family. No complications. IMPRESSION: Left humerus fracture, Multiple falls, Generalized weakness, Acute UTI PLAN: Being Evaluated by Hospitalist The scribe's documentation has been prepared under my direction and personally reviewed by me in its entirety. I confirm that the note above accurately reflects all work, treatment, procedures, and medical decision making performed by me. Impression & Plan Fracture of left humerus, Multiple falls, Generalized weakness, Acute UTI Past Med/Surg History Medical History Diabetes mellitus (Chronic) Gait abnormality (Chronic) HTN (hypertension) (Chronic) Hypothyroidism (Chronic) Kidney stones (Resolved) MCI (mild cognitive impairment) (Chronic) Vitamin B12 deficiency (dietary) anemia (Chronic) Vitamin D deficiency (Chronic) Surgical History H/O colonoscopy History of back surgery tail bone History of bladder surgery History of cataract surgery History of oral surgery S/P appendectomy (Resolved) S/P hysterectomy (Resolved) Family History Mother Diabetes Hypertension Brother Diabetes Sister Breast cancer Social History (Updated 11/08/19 @ 15:29 by Isabel Mike DO) Preferred Language: Mexican Communication Ability: Effective Visual Impairment: Diminished Deck Engineer Required: No Beliefs That Will Affect Care: None marital status: / Current Living Situation: Alone current occupational status: retired Other Information That Helps Us Care for You: No Feels Safe at Home: Yes Safety Concerns: Feels Safe At This Time Smoking Status: Former smoker Tobacco Type: cigarettes ; Hx Alcohol Use: No Hx Substance Use: No caffeine: Yes Seatbelt Use: always Results & Data Vital Signs Vital Signs - 24 hr 11/08/19 09:20 11/08/19 09:22 11/08/19 09:30 Temperature 36.7 C Temperature Source Oral Pulse Rate 98 H 103 H 99 H Pulse Rate [Apical] Pulse Rate from SpO2 Sensor 102 H 103 H 99 H Pulse Rhythm Regular Respiratory Rate 23 24 15 Respiratory Effort / Characteristics Non-Labored Respiratory Depth Normal Blood Pressure 194/84 H 194/84 H Blood Pressure [Right Arm] Blood Pressure Mean 113 120 Blood Pressure Mean [Right Arm] Pulse Oximetry 97 99 98 Oxygen Delivery Method Nasal Cannula Oxygen Flow Rate 2 Sepsis Recent Fever Within 48 Hours No Sepsis Action Taken by Nursing No Action Required 11/08/19 10:00 11/08/19 10:01 11/08/19 10:22 Temperature Temperature Source Pulse Rate 95 H 96 H Pulse Rate [Apical] Pulse Rate from SpO2 Sensor 94 H 96 H Pulse Rhythm Respiratory Rate 16 13 Respiratory Effort / Characteristics Respiratory Depth Blood Pressure 173/94 H Blood Pressure [Right Arm] Blood Pressure Mean 114 Blood Pressure Mean [Right Arm] Pulse Oximetry 98 99 97 Oxygen Delivery Method Room Air Oxygen Flow Rate Sepsis Recent Fever Within 48 Hours Sepsis Action Taken by Nursing 11/08/19 10:30 11/08/19 10:39 11/08/19 10:44 Temperature Temperature Source Pulse Rate 100 H 98 H Pulse Rate [Apical] 100 H Pulse Rate from SpO2 Sensor 99 H 98 H Pulse Rhythm Respiratory Rate 18 17 18 Respiratory Effort / Characteristics Respiratory Depth Blood Pressure 158/70 H Blood Pressure [Right Arm] 173/94 H Blood Pressure Mean 122 Blood Pressure Mean [Right Arm] 120 Pulse Oximetry 99 99 99 Oxygen Delivery Method Room Air Oxygen Flow Rate Sepsis Recent Fever Within 48 Hours Sepsis Action Taken by Nursing 11/08/19 11:03 11/08/19 11:04 11/08/19 11:30 Temperature Temperature Source Pulse Rate 101 H 101 H 102 H Pulse Rate [Apical] Pulse Rate from SpO2 Sensor 101 H 101 H 101 H Pulse Rhythm Respiratory Rate 18 20 18 Respiratory Effort / Characteristics Respiratory Depth Blood Pressure 176/64 H 172/77 H Blood Pressure [Right Arm] Blood Pressure Mean 132 124 Blood Pressure Mean [Right Arm] Pulse Oximetry 97 97 97 Oxygen Delivery Method Oxygen Flow Rate Sepsis Recent Fever Within 48 Hours Sepsis Action Taken by Nursing 11/08/19 11:31 11/08/19 12:00 11/08/19 12:01 Temperature Temperature Source Pulse Rate 102 H 100 H 101 H Pulse Rate [Apical] Pulse Rate from SpO2 Sensor 101 H Pulse Rhythm Respiratory Rate 19 20 22 Respiratory Effort / Characteristics Respiratory Depth Blood Pressure 192/92 H Blood Pressure [Right Arm] Blood Pressure Mean 130 Blood Pressure Mean [Right Arm] Pulse Oximetry 96 Oxygen Delivery Method Oxygen Flow Rate Sepsis Recent Fever Within 48 Hours Sepsis Action Taken by Nursing 11/08/19 12:30 11/08/19 12:31 11/08/19 13:00 Temperature Temperature Source Pulse Rate 103 H 102 H 102 H Pulse Rate [Apical] Pulse Rate from SpO2 Sensor 102 H 102 H 103 H Pulse Rhythm Respiratory Rate 20 18 16 Respiratory Effort / Characteristics Respiratory Depth Blood Pressure 149/84 H 169/77 H Blood Pressure [Right Arm] Blood Pressure Mean 112 126 Blood Pressure Mean [Right Arm] Pulse Oximetry 98 97 98 Oxygen Delivery Method Oxygen Flow Rate Sepsis Recent Fever Within 48 Hours Sepsis Action Taken by Nursing 11/08/19 13:01 11/08/19 13:30 11/08/19 13:31 Temperature Temperature Source Pulse Rate 102 H 103 H 105 H Pulse Rate [Apical] Pulse Rate from SpO2 Sensor 102 H 102 H 106 H Pulse Rhythm Respiratory Rate 19 18 14 Respiratory Effort / Characteristics Respiratory Depth Blood Pressure 160/69 H Blood Pressure [Right Arm] Blood Pressure Mean 121 Blood Pressure Mean [Right Arm] Pulse Oximetry 98 98 99 Oxygen Delivery Method Oxygen Flow Rate Sepsis Recent Fever Within 48 Hours Sepsis Action Taken by Nursing 11/08/19 14:00 11/08/19 14:01 11/08/19 14:30 Temperature Temperature Source Pulse Rate 102 H 103 H 104 H Pulse Rate [Apical] Pulse Rate from SpO2 Sensor 102 H 104 H 104 H Pulse Rhythm Respiratory Rate 10 L 18 13 Respiratory Effort / Characteristics Respiratory Depth Blood Pressure 145/71 H 139/71 Blood Pressure [Right Arm] Blood Pressure Mean 89 95 Blood Pressure Mean [Right Arm] Pulse Oximetry 99 98 99 Oxygen Delivery Method Oxygen Flow Rate Sepsis Recent Fever Within 48 Hours Sepsis Action Taken by Nursing 11/08/19 14:31 11/08/19 16:45 Temperature Temperature Source Pulse Rate 97 H Pulse Rate [Apical] Pulse Rate from SpO2 Sensor 99 H Pulse Rhythm Respiratory Rate 22 Respiratory Effort / Characteristics Respiratory Depth Blood Pressure Blood Pressure [Right Arm] Blood Pressure Mean Blood Pressure Mean [Right Arm] Pulse Oximetry 98 Oxygen Delivery Method Nasal Cannula Oxygen Flow Rate 2 Sepsis Recent Fever Within 48 Hours Sepsis Action Taken by Alf Medications Current Medication List: was personally reviewed by me Laboratory Data Attestation: I reviewed the patient's lab results. Result diagrams: 11/08/19 10:35 11/08/19 10:35 Lab Results 11/08/19 11/08/19 11/08/19 Range/Units 10:35 10:35 12:30 WBC 15.14 H (4.8-10.8) K/uL RBC 3.91 L (4.2-5.4) M/uL Hgb 11.0 L (12.0-16.0) g/dL Hct 33.8 L (37-47) % MCV 86.4 (80-100) fL MCH 28.1 (25-34) pg MCHC 32.5 (32-36) g/dL RDW Std Deviation 43.5 (36.4-46.3) fL RDW Coeff of [place] 13.7 (11.5-14.5) % Plt Count 254 (130-400) K/uL MPV 10.0 (7.4-10.4) fL Immature Gran % (Auto) 0.7 % Neut % (Auto) 84.9 % Lymph % (Auto) 8.1 % [place] % (Auto) 5.9 % Eos % (Auto) 0.3 % Baso % (Auto) 0.1 % Immature Gran # (Auto) 0.11 H (0.00-0.02) K/uL Neut # (Auto) 12.84 H (1.4-6.5) K/uL Lymph # (Auto) 1.23 (1.2-3.4) K/uL [place] # (Auto) 0.90 H (0.11-0.59) K/uL Eos # (Auto) 0.04 (0-0.5) K/uL Baso # (Auto) 0.02 (0-0.2) K/uL Sodium 135 L (136-145) mmol/L Potassium 5.0 (3.5-5.1) mmol/L Chloride 102 (98-107) mmol/L Carbon Dioxide 23 (21-32) mmol/L Anion Gap 10.0 (3-11) BUN 19 H (7-18) mg/dl Creatinine 1.40 H (0.6-1.2) mg/dl Est Cr Clr Drug Dosing 21.6 ml/min Est GFR ( Amer) 39.1 Est GFR (Non-Af Amer) 33.7 BUN/Creatinine Ratio 13.4 (10-20) Glucose 320 H* (70-99) mg/dl Calcium 9.3 (8.5-10.1) mg/dl Magnesium 1.7 L (1.8-2.4) mg/dl Total Bilirubin 0.5 (0.2-1) mg/dl AST 23 (15-37) U/L ALT 22 (12-78) U/L Alkaline Phosphatase 100 (45-117) U/L Total Protein 7.4 (6.4-8.2) gm/dl Albumin 3.1 L (3.4-5.0) gm/dl Globulin 4.3 H (2.5-4.0) gm/dl Albumin/Globulin Ratio 0.7 L (0.9-2) Beta-Hydroxybutyric Acd (0.2-2.81) mg/dl TSH 4.890 H (0.300-4.500) uIu/ml Free T4 1.19 (0.8-1.6) ng/dl Urine Color Yellow Urine Appearance Cloudy A (Clear) Urine pH 5.5 (4.5-7.5) Ur Specific [place] 1.017 (1.000-1.030) Urine Protein Trace H (Negative) Urine Glucose (UA) 3+ H (Negative) Urine Ketones Trace H (Negative) Urine Blood Trace H (Negative) Urine Nitrite Negative (Negative) Urine Bilirubin Negative (Negative) Urine Urobilinogen Negative (Negative) Ur Leukocyte Esterase 3+ H (Negative) Urine WBC (Auto) >30 H (0-5) /hpf Urine RBC (Auto) 0-4 (0-4) /hpf U Hyaline Cast (Auto) 0 (0-5) /lpf U Epithel Cells (Auto) 5-10 H (0-5) /lpf Urine Bacteria (Auto) 3+ H (Negative) Administered Medications Morphine Sulfate (Morphine Sulfate) 0.5 mg IV Q4H PRN PRN Reason: Pain Stop: 11/22/19 15:22 Last Admin: 11/08/19 15:36 Dose: 0.5 mg Documented by: [id number] Discontinued Medications Hydromorphone HCl (Dilaudid) 0.25 mg IV NOW STA Stop: 11/08/19 10:36 Last Admin: 11/08/19 10:44 Dose: 0.25 mg Documented by: [id number] Ciprofloxacin (Cipro) 400 mg in 200 mls @ 200 mls/hr IV NOW STA Stop: 11/08/19 15:33 Last Infusion: 11/08/19 16:44 Dose: 0 mls/hr Documented by: [id number] Admin: 11/08/19 14:59 Dose: 200 mls/hr Documented by: [id number] Imaging Data Radiologist's Impression: Radiology results as stated below per my review and the radiologist's interpretation: CT head/brain wo con CLINICAL HISTORY: Head trauma. Head pain. COMPARISON STUDY: 05/26/2018 TECHNIQUE: Axial CT of the brain is performed from the vertex to the skull base. IV contrast was not administered for this examination. A dose lowering te chnique was utilized adhering to the principles of ALARA. CT DOSE: 537.48 mGy.cm FINDINGS: No intra or extra-axial mass lesions are visualized. There is no CT evidence of acute cortical infarction. There is no evidence of midline shift. There is no acute hemorrhage. No calvarial fractures are visualized. There are patchy white matter hypodensities likely on a small vessel basis. There is no evidence of pathologic ventricular dilatation. There is no evidence of acute sinusitis IMPRESSION: No acute intracranial findings ACT 112: Negative or not required by law. Electronically signed by: Cristo Hudson M.D. 11/08/2019 10:59 AM LEFT SHOULDER 2 VIEWS CLINICAL HISTORY: Fall with left shoulder injury. FINDINGS: 2 views of the left shoulder are compared to study dated 05/26/2018. The skeletal structures are osteopenic. There is an impacted and comminuted fracture of the left humeral head and neck with numerous distracted fragments. There is mild offset of the humeral shaft. Overlying soft tissue edema is noted. The glenohumeral articulation appears maintained. Productive degenerative change is noted at the acromioclavicular joint. The visualized left lung parenchyma appears clear noting basilar atelectasis. Surgical clips project over the left lower chest wall. IMPRESSION: Impacted and comminuted fracture of the left humeral head and neck as above. Electronically signed by: Armando Valdes M.D. 11/08/2019 10:10 AM XR elbow LT 2V CLINICAL HISTORY: Left elbow pain status post trauma COMPARISON: 05/26/2018 DISCUSSION: The examination is limited from a positioning standpoint. No fractures or dislocations are visualized. The fat pads are not significantly displaced. IMPRESSION: Technically limited study. No acute fractures or dislocations identified ACT 112: Negative or not required by law. Electronically signed by: Cristo Hudson M.D. 11/08/2019 10:06 AM LEFT HAND 3 VIEWS CLINICAL HISTORY: Fall with left hand injury. FINDINGS: 3 views of the left hand are obtained. No prior studies are available for comparison at the time of dictation. The skeletal structures are osteopenic. There is cortical irregularity at the base of the fifth proximal phalanx. No additional findings are concerning for acute fracture. Osteoarthritic change is seen involving the interphalangeal joints, distal greater than proximal. Erosive arthritis is noted at the second through fifth distal interphalangeal joints. Mild osteophytic arthritic changes seen at the first carpometacarpal and metacarpophalangeal joints. Mild dorsal soft tissue edema is noted at the level of the metacarpal heads. Soft tissue edema is also noted in the fingers. Atherosclerotic calcification is seen in the regional arteries. IMPRESSION: 1. There is cortical irregularity at the base of the fifth proximal phalanx. Nondistracted fracture is not excluded. Correlate for point tenderness. 2. No additional findings are concerning for fracture. 3. Osteopenia and degenerative change as above. Electronically signed by: Armando Valdes M.D. 11/08/2019 12:21 PM XR knee LT 3V HISTORY: 89 years-old Female fall on left knee acute left knee pain status post fall COMPARISON: 05/26/2018 TECHNIQUE: 3 views of the left knee FINDINGS: Demineralized appearance of the bones. 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 Large enthesophytes of the superior and inferior aspects of the patella at the patellar and quadriceps insertion sites. Trace joint effusion suspected. No acute fracture, dislocation or opaque foreign body. Mild anteromedial soft tissue swelling. Arterial calcifications are noted. IMPRESSION: Mild anteromedial soft tissue swelling without acute fracture or dislocation. ACT 112: Negative or not required by law. The above report was generated using voice recognition software. It may contain grammatical, syntax or spelling errors. Electronically signed by: Cornelio Thompson M.D. 11/08/2019 12:08 PM ECG Data Attestation: I personally reviewed and interpreted this ECG as follows: Indication: + weakness and + other (fall, hit head) Rate (beats per minute): 98 Rhythm: sinus rhythm ECG Intervals/blocks: + First degree AV block ECG [place]: + Normal ECG ST segments: + Nonspecific ST abnormalities ECG Findings: + Q waves (Inferior Q waves. ) and + Poor R wave progression Blood Pressure Blood Pressure Findings: Elevated blood pressure Blood Pressure Disposition: further management by hospitalist Discharge Plan Visit Data Chief Complaint: Fall ED Provider: Garrett Melgar ED Midlevel Provider: Marla Denis Discharge Problem: Fracture of left humerus, Multiple falls, Generalized weakness, Acute UTI Patient Disposition: Being Evaluated by Hospitalist Discharge Instructions Interventions: ED Discharge Assessment Last Done: 11/08/19 16:45 Discharge Problem: Fracture of left humerus Qualifiers: Encounter type: initial encounter Humerus Location: proximal Fracture type: closed Fracture morphology: other fracture Fracture alignment: nondisplaced Qualified Code(s): S42.295A - Other nondisplaced fracture of upper end of left humerus, initial encounter for closed fracture The scribe's documentation has been prepared under my direction and personally reviewed by me in its entirety. I confirm that the note above accurately reflects all work, treatment, procedures, and medical decision making performed by me.
[2019-11-08] MEDS ORDERED: ACETAMINOPHEN 325 MG TAB PO PRN (17:00)
[2019-11-08] MEDS ORDERED: CARBOHYDRATES FOR HYPOGLYCEMIA PO PRN (17:00)
[2019-11-08] MEDS ORDERED: ONDANSETRON INJ 2 MG/ML 2 ML VIAL IV PRN (17:00)
[2019-11-08] MEDS ORDERED: GLUCAGON FOR INJ 1 MG VIAL SQ PRN (17:00)
[2019-11-08] MEDS ORDERED: GLUCOSE 40% GEL 15 GM TUBE PO PRN (17:00)
[2019-11-08] MEDS ORDERED: DEXTROSE 50% 50 ML SYRINGE IV PRN (17:00)
[2019-11-08] MEDS ORDERED: GLUCOSE 10 TABS/TUBE PO PRN (17:00)
[2019-11-08] MEDS ORDERED: MAGNESIUM HYDROXIDE SUSP 30 ML UDC PO PRN (17:00)
[2019-11-08] MEDS ORDERED: ONDANSETRON 4 MG OD TAB PO PRN (17:30)
[2019-11-08] MEDS: POTASSIUM CHLORIDE 10 MEQ in SODIUM CHLORIDE 0.9% 1000ML 1,000 ML IV SCH ×2 (17:45→18:15)
[2019-11-08] MEDS: MAGNESIUM SULFATE / D5W 1 GM/100 ML BAG IV ONE ×2 (17:46→18:15)
[2019-11-08] MEDS: INSULIN ASPART 100 UNITS/ML 3 ML PEN SC SCH ×3 (17:53→20:45)
[2019-11-08] MEDS: ESCITALOPRAM OXALATE 10 MG TAB PO SCH (17:54)
[2019-11-08] MEDS: hydrOXYzine HCl 10 MG TAB PO SCH (20:48)
--- NOTE | 2019-11-09 02:10 | Communication Note ---
Date of Service: November 09, 2019 Called for hyperglycemia >300. Pt trending low 300s, recent 313 --> 267 with SSI aspart. Current parameters CF1:35 / Ratio 1:15. Parameters tightened to CF1:30, Ratio 1:12
[2019-11-09 06:59] LABS: Basophils # (auto) 0.02 K/uL (0-0.2); Basophils % (auto) 0.2 %; Eosinophils # (auto) 0.06 K/uL (0-0.5); Eosinophils % (auto) 0.5 %; Hematocrit (blood only) 31.5 % (37-47); Hemoglobin 10.4 g/dL (12.0-16.0); Immature Granulocytes # (auto) 0.05 K/uL (0.00-0.02); Immature Granulocytes % (auto) 0.4 %; Lymphocytes # (auto) 1.39 K/uL (1.2-3.4); Lymphocytes % (auto) 12.4 %; Mean Corpuscular Hemoglobin 28.2 pg (25-34); Mean Corpuscular Volume 85.4 fL (80-100); Mean Platelet Volume 9.3 fL (7.4-10.4); Monocytes # (auto) 1.25 K/uL (0.11-0.59); Monocytes % (auto) 11.2 %; Neutrophils # (auto) 8.41 K/uL (1.4-6.5); Neutrophils % (auto) 75.3 %; Platelet Count 265 K/uL (130-400); RDW Coefficient of Variation 13.5 % (11.5-14.5); RDW Standard Deviation 42.5 fL (36.4-46.3); Red Blood Count 3.69 M/uL (4.2-5.4); White Blood Count 11.18 K/uL (4.8-10.8)
[2019-11-09 07:20] LABS: Estimated Average Glucose 243 mg/dl; Hemoglobin A1C 10.1 % (4.5-5.6)
[2019-11-09 07:29] LABS: BUN Creatinine Ratio 17.5 (10-20); Calcium 8.9 mg/dl (8.5-10.1); Est GFR (African American) 46.6; Est GFR (Non-African American) 40.2; Magnesium 1.9 mg/dl (1.8-2.4); Phosphorus 3.8 mg/dl (2.5-4.9); Potassium 4.4 mmol/L (3.5-5.1)
[2019-11-09] MEDS: INSULIN ASPART 100 UNITS/ML 3 ML PEN SC SCH ×4 (09:14→21:07)
[2019-11-09] MEDS: PANTOprazole 40 MG TAB PO SCH (09:42)
[2019-11-09] MEDS: LISINOPRIL/HCTZ 20/12.5MG 1 TAB TAB PO SCH (09:42)
[2019-11-09] MEDS: AMLODIPINE BESYLATE 5 MG TAB PO SCH (09:42)
[2019-11-09] MEDS: hydrOXYzine HCl 10 MG TAB PO SCH ×2 (09:45→21:10)
[2019-11-09] MEDS: MoRPHine SULFATE 2 MG/ML CARP IV PRN (09:50)
--- NOTE | 2019-11-09 09:54 | Hospitalist Progress Note ---
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 phalanx possible nondisplaced fx - Pain control with Percocet PRN and Morphine IV PRN; Tylenol PRN - Orthopedics following - possibly conservative measures - sling use, only move elbow/hand; serial xrays to assess for any further displacement that may require surgical intervention - PT/OT (2) Multiple falls: - Falls x 2 on 11/08 - PT/OT (3) Acute UTI: - UCx with E. coli - await sensitivities - Continue Cipro for now - monitor for any confusion as this medication can precipitate this (4) Diabetes mellitus: - A1c - 10 -- May benefit from slowly improving this but would need to be cautious given age and risk for hypoglycemia - Had hyperglycemic episodes overnight - likely from stress/infection; also did not take AM meds due to falls and will monitor - Continue SSI at current time - hold oral medications (5) ARF (acute renal failure): - Baseline Cr 1.1-1.2 - Cr 1.4 on admission but back to baseline - Will continue to monitor; hold further IVF at this time (6) HTN (hypertension): - Continue Amlodipine 2.5 mg daily and Lisinopril/HCTZ daily (7) Hypothyroidism: - TSH 4.8 so slightly increased but T4 is normal - possibly reactive given falls/injury but may be normal variant given age - Will not adjust medications at this time and should have repeat TSH in 4-6 weeks - Not currently on medications for this (8) MCI (mild cognitive impairment): - STABLE (9) Hyperlipidemia: - Continue pravastatin 40 mg daily (10) GERD (gastroesophageal reflux disease): - Continue PPI (11) Hypomagnesemia: - RESOLVEd; replete as necessary (12) 1st degree AV block: - Not present on EKG from 2016 - unlikely contributing to falls - Currently no intervention warranted (13) DVT prophylaxis: SCDs Disposition: PT/OT; Await UCx and pain control; case management for discharge needs Admission and Anticipated Discharge Date Admission Date: November 08, 2019 Anticipated date of discharge: 11/11/19 Supervising Physician Co-Signing Physician Notes PA Supervision Note: I did not personally see or examine the patient today, but I verified all mcbride points of ADRI Jenkins's assessment and plan with the following exceptions/additions: Later in the day, she had some lethargy related to opioid use. Seen by ADRI Jenkins and was easily arousable. Decided to cut down on opioid use. Subjective Reports having ongoing L shoulder pain this AM. Is getting something for pain during my assessment. She verbalizes no other complaints. Discussed findings from admission. Awaiting urine culture however she reports no urinary symptoms. Her renal function is improving with gentle hydration. She did have elevated glucose readings overnight and she states this is not normal for her. Review of Systems Constitutional: no fever and no chills Ear, Nose, Mouth, Throat: no nasal congestion and no sore throat Respiratory: no cough and no dyspnea Cardiovascular: no chest pain, no palpitations and no edema Gastrointestinal: no abdominal pain, no nausea, no vomiting, no constipation and no diarrhea/loose stools Genitourinary: no dysuria and no urinary frequency Musculoskeletal: no muscle weakness Integumentary: no rash Physical Exam Constitutional: WD/WN, vitals as above Eyes: sclerae not anicteric ENMT: Ears: no hearing impairment Neck: trachea midline Respiratory: normal respiratory effort, lungs clear to auscultation Cardiovascular: Rate/Rhythm: regular rate and regular rhythm Heart Sounds: no murmur Gastrointestinal (Abdomen): Inspection/Auscultation: normal bowel sounds Percussion/Palpation: abdomen soft; abdomen nontender Musculoskeletal: Head/Neck/Chest: normocephalic and head atraumatic L shoulder placed in sling however largely out of sling and rather straight; cap refill immediate; no openings of L shoulder/upper arm; Gauze wrapping of wrist Skin: no rashes, warm and dry Neurologic: moves all extremities (did not test LUE) Psychiatric: A+Ox3, euthymic affect Results & Data ([facility]) Vital Signs (Past 12 Hours) Vital Signs Temp Pulse Resp BP Pulse Ox 11/09/19 07:05 37.0 C 80 16 157/72 H 98 11/08/19 22:50 36.6 C 88 15 160/72 H 97 PG Care Time/CCT Total # of Minutes Spent Total Time Spent with Patient: Total time spent is greater than 50% in coordination of care (as documented) at patient's floor/unit and/or counseling patient: Coding Level of Care Code 68459 Subseq Hosp Care Lvl 3 Diagnoses Humeral fracture S42.309A Multiple falls R29.6 Acute UTI N39.0 Diabetes mellitus E11.9 Diabetes mellitus complication status: without complication Diabetes mellitus mcfp insulin use: without termite control servicer use Diabetes mellitus type: type 2 ARF (acute renal failure) N17.9 HTN (hypertension) I10 Hypertension type: essential hypertension Hypothyroidism E03.9 MCI (mild cognitive impairment) G31.84 Hyperlipidemia E78.5 GERD (gastroesophageal reflux disease) K21.9 Hypomagnesemia E83.42 1st degree AV block I44.0 DVT prophylaxis Z29.9 (1) Diabetes mellitus Diabetes mellitus complication status: without complication Diabetes mellitus termite control servicer insulin use: without termite control servicer use Diabetes mellitus type: type 2 Qualified Code(s): E11.9 - Type 2 diabetes mellitus without complications (2) HTN (hypertension) Hypertension type: essential hypertension Qualified Code(s): I10 - Essential (primary) hypertension
--- NOTE | 2019-11-09 10:10 | Orthopedic Consultation ---
Date of Consultation November 09, 2019 Assessment & Plan (1) Fracture of left humerus: Left Proximal humerus fracture Conservative treatment likely acceptable. Continue sling. May move elbow wrist and hand only. Ice as needed. Pain control. Will need to follow closely with serial x rays for further displacement, in which case surgical intervention may be required if medically stable. Left 5th finger fracture, this will heal with lb taping and splint, will keep current splint in tact, but likely a smaller alumifoam splint and lb taping will be sufficient. History of Present Illness Attending Physician: Windy Chaparro MD History of Present Illness 89 yr old female who had multiple falls yesterday, states she just "wasnt feeling herself". She was admitted through medicine for prox humerus fracture, hand injury, and UTI. Multiple co morbidities as noted below. Left shoulder X rays show moderately displaced proximal humerus fracture. No dislocation. Generalized OA. Left 5th finger nondisplaced prox phalanx fracture/ irregularity. Allergies Allergy/AdvReac Type Severity Reaction Status Date / Time amoxicillin Allergy Intermediate RASH Verified 11/08/19 10:31 cephalexin Allergy Unknown RASH Verified 11/08/19 10:31 Home Medications Home Medications Medication Instructions Recorded Confirmed Type blood sugar diagnostic #100 ea 05/12/19 06/27/19 Rx amlodipine 2.5 mg tablet 2.5 mg PO DAILY #90 tab 06/22/19 11/08/19 History blood sugar diagnostic #10 ea 06/22/19 06/22/19 History cholecalciferol (vitamin D3) 50 2,000 units PO DAILY cap 06/22/19 11/08/19 History mcg (2,000 unit) capsule escitalopram oxalate 10 mg tablet 10 mg PO DAILY #90 tab 06/22/19 11/08/19 History ferrous sulfate 325 mg (65 mg 325 mg PO DAILY tab 06/22/19 11/08/19 History iron) tablet lancets 33 gauge #100 ea 06/22/19 06/22/19 History linagliptin 5 mg tablet 5 mg PO DAILY #30 tab 06/22/19 11/08/19 History metformin 1,000 mg tablet 1,000 mg PO BID #180 tab 06/22/19 11/08/19 History ondansetron 4 mg disintegrating 4 mg PO Q12H PRN #60 tab 06/22/19 11/08/19 History tablet vitamin A-vitamin C-vit E-min 1 tab PO DAILY 06/22/19 11/08/19 History glimepiride 2 mg tablet 2 mg PO DAILY #90 tab 07/14/19 11/08/19 Rx lisinopril 20 1 tab PO DAILY #90 tab 07/31/19 11/08/19 Rx mg-hydrochlorothiazide 12.5 mg tablet omeprazole 20 mg capsule,delayed 20 mg PO DAILY #90 cap 08/07/19 11/08/19 Rx release fish oil-dha-epa 1 cap PO DAILY 11/08/19 11/08/19 History hydroxyzine HCl 10 mg PO BID 11/08/19 11/08/19 History pravastatin [Pravachol] 40 mg PO DAILY 11/08/19 11/08/19 History Patient History Medical History Diabetes mellitus (Chronic) Gait abnormality (Chronic) HTN (hypertension) (Chronic) Hypothyroidism (Chronic) Kidney stones (Resolved) MCI (mild cognitive impairment) (Chronic) Vitamin B12 deficiency (dietary) anemia (Chronic) Vitamin D deficiency (Chronic) Surgical History H/O colonoscopy History of back surgery tail bone History of bladder surgery History of cataract surgery History of oral surgery S/P appendectomy (Resolved) S/P hysterectomy (Resolved) Family History Mother Diabetes Hypertension Brother Diabetes Sister Breast cancer Social History (Updated 11/08/19 @ 15:29 by Isabel Mike DO) Preferred Language: Kazakh Communication Ability: Effective Visual Impairment: Diminished Professional Nursing Assistant Required: No Beliefs That Will Affect Care: None marital status: / Current Living Situation: Alone current occupational status: retired Other Information That Helps Us Care for You: No Feels Safe at Home: Yes Safety Concerns: Feels Safe At This Time Smoking Status: Former smoker Tobacco Type: cigarettes ; Hx Alcohol Use: No Hx Substance Use: No caffeine: Yes Seatbelt Use: always Physical Exam Physical Exam: Left shoulder skin in tact, no ecchymosis. Fingers Mobile with in tact sensation. ROM at shoulder deferred. No appreciable deformity. Left finger is in well fitting splint. Results & Data ([facility]) Vital Signs (Past 12 Hours) Vital Signs Temp Pulse Resp BP Pulse Ox 11/09/19 07:05 37.0 C 80 16 157/72 H 98 11/08/19 22:50 36.6 C 88 15 160/72 H 97 (1) Fracture of left humerus Encounter type: initial encounter Fracture alignment: nondisplaced Fracture morphology: other fracture Fracture type: closed Humerus Location: proximal Qualified Code(s): S42.295A - Other nondisplaced fracture of upper end of left humerus, initial encounter for closed fracture
[2019-11-09] MEDS ORDERED: OXYCODONE/ACETAMINOPHEN 5mg/325mg TAB PO PRN ×2 (10:16→19:00)
[2019-11-09] MEDS ORDERED: MoRPHine SULFATE 2 MG/ML CARP IV PRN (10:18)
[2019-11-09] MEDS: ESCITALOPRAM OXALATE 10 MG TAB PO SCH (13:36)
[2019-11-09] MEDS ORDERED: CIPROFLOXACIN 400 MG/200 ML BAG IV SCH (14:00)
[2019-11-09] MEDS: POTASSIUM CHLORIDE 10 MEQ in SODIUM CHLORIDE 0.9% 1000ML 1,000 ML IV SCH (14:43)
[2019-11-09] MEDS ORDERED: INSULIN GLARGINE SOLOSTAR 100 UNITS/ML 3 ML PEN SC ONE (15:54)
[2019-11-09] MEDS ORDERED: SODIUM CHLORIDE 0.9% 1000ML 1,000 ML IV SCH (16:45)
[2019-11-09] MEDS: ACETAMINOPHEN 500 MG TAB PO SCH (21:10)
[2019-11-10 08:48] LABS: Hematocrit (blood only) 32.1 % (37-47); Hemoglobin 10.5 g/dL (12.0-16.0); Mean Corpuscular Hemoglobin 28.1 pg (25-34); Mean Corpuscular Hgb Conc 32.7 g/dL (32-36); Mean Corpuscular Volume 85.8 fL (80-100); Mean Platelet Volume 9.5 fL (7.4-10.4); Platelet Count 214 K/uL (130-400); RDW Coefficient of Variation 13.5 % (11.5-14.5); RDW Standard Deviation 42.4 fL (36.4-46.3); Red Blood Count 3.74 M/uL (4.2-5.4); White Blood Count 9.96 K/uL (4.8-10.8)
[2019-11-10] MEDS: hydrOXYzine HCl 10 MG TAB PO SCH ×2 (08:51→21:42)
[2019-11-10] MEDS: PRAVASTATIN SOD 40 MG TAB PO SCH (08:51)
[2019-11-10] MEDS: CHOLECALCIFEROL 1,000 UNITS 25 MCG TAB PO SCH (08:52)
[2019-11-10] MEDS: AMLODIPINE BESYLATE 5 MG TAB PO SCH (08:52)
[2019-11-10] MEDS: ESCITALOPRAM OXALATE 10 MG TAB PO SCH (08:52)
[2019-11-10] MEDS: FERROUS SULFATE 325 MG TAB PO SCH (08:52)
[2019-11-10] MEDS: ACETAMINOPHEN 500 MG TAB PO SCH ×3 (08:52→21:42)
[2019-11-10] MEDS: PANTOprazole 40 MG TAB PO SCH (08:52)
[2019-11-10] MEDS: INSULIN ASPART 100 UNITS/ML 3 ML PEN SC SCH ×4 (08:57→21:52)
[2019-11-10] MEDS: INSULIN GLARGINE SOLOSTAR 100 UNITS/ML 3 ML PEN SC SCH (08:57)
[2019-11-10 09:23] LABS: BUN Creatinine Ratio 17.3 (10-20); Creatinine Clr Calc Pharmacy 27.3 ml/min; Est GFR (African American) 51.7; Est GFR (Non-African American) 44.6; Potassium 3.7 mmol/L (3.5-5.1)
--- NOTE | 2019-11-10 09:48 | Communication Note ---
Date of Service: November 10, 2019 Discussed patient care with Noé Blanco PA-C today. Continue sling at all times for left proximal humerus fracture. asking that hand splint be removed and that the fourth and fifth left fingers be lb taping to treat the fifth proximal phalanx fracture. Patient is awake and alert and in good spirits. Complaining of mild shoulder pain this morning. Splint is removed from the left hand. The fourth and fifth fingers have been lb taped without difficulty. Patient tolerated the taping well. Continue sling at all times. No range of motion of the left shoulder. May loosen the sling for elbow and wrist range of motion or to change positioning for increased discomfort at those points. Continue lb taping of the fourth and fifth fingers. Follow-up with Dr. Michel in 2 weeks.
[2019-11-10] MEDS ORDERED: CIPROFLOXACIN 250 MG TAB PO ONE (11:00)
--- NOTE | 2019-11-10 12:50 | Hospitalist Progress Note ---
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 phalanx possible nondisplaced fx - Pain control with MARK Tylenol and Percocet 2.5 mg - was oversedated with Percocet 5 mg - maybe consider Hydrocodone as an alternative for stronger pain medication if necessary - Orthopedics following - possibly conservative measures - sling use, only move elbow/hand; serial xrays to assess for any further displacement that may require surgical intervention - PT/OT (2) Multiple falls: - Falls x 2 on 11/08 - PT/OT (3) Acute UTI: - UCx with E. coli - pansensitive - Given asymptomatic nature will complete Ciprofloxacin x 3 days - will end tonight (4) Diabetes mellitus: - A1c - 10 -- May benefit from slowly improving this to around 8 given age but would need to be cautious given age and risk for hypoglycemia - Had hyperglycemic episodes overnight - likely from stress/infection; also did not take AM meds due to falls and will monitor - Continue SSI at current time; add Lantus 8 units SC daily - hold oral medications (5) ARF (acute renal failure): - Baseline Cr 1.1-1.2 - Cr 1.4 on admission but back to baseline - Will continue to monitor (6) HTN (hypertension): - Continue Amlodipine 2.5 mg daily and hold Lisinopril/HCTZ for now (7) Hypothyroidism: - TSH 4.8 so slightly increased but T4 is normal - possibly reactive given falls/injury but may be normal variant given age - Not currently on medications for this; recommend repeat TSH in 4-6 weeks (8) MCI (mild cognitive impairment): - STABLE (9) Hyperlipidemia: - Continue pravastatin 40 mg daily (10) GERD (gastroesophageal reflux disease): - Continue PPI (11) Hypomagnesemia: - RESOLVED; replete as necessary (12) 1st degree AV block: - Not present on EKG from 2016 - unlikely contributing to falls - Currently no intervention warranted (13) DVT prophylaxis: SCDs Disposition: Continue PT/OT; pain control; awaiting bed at [facility] - hopefully D/C over weekend Admission and Anticipated Discharge Date Admission Date: November 08, 2019 Anticipated date of discharge: 11/11/19 Supervising Physician Co-Signing Physician Notes PA Supervision Note: I did not personally see or examine the patient today, but I verified all mcbride points of ADRI Jenkins's assessment and plan with the following exceptions/additions: none Subjective Overall doing well today. Still with ongoing pain but states it is a bit better from yesterday. In the afternoon yesterday the pain medication seemed to be too much resulting in some confusion/drowsiness. She is back to baseline today. She is tolerating a diet and working with therapy. She verbalizes no new complaints. Review of Systems Constitutional: no fever and no chills Respiratory: no cough and no dyspnea Cardiovascular: no chest pain and no lightheadedness Gastrointestinal: no abdominal pain, no nausea, no vomiting, no constipation and no diarrhea/loose stools Genitourinary: no dysuria and no urinary frequency Musculoskeletal: + joint pain (L arm/finger) Integumentary: no rash Neurologic: no tingling and no numbness Physical Exam Constitutional: WD/WN, vitals as above Eyes: sclerae not anicteric ENMT: Ears: no hearing impairment Neck: trachea midline Respiratory: normal respiratory effort, lungs clear to auscultation Cardiovascular: Rate/Rhythm: regular rate and regular rhythm Heart Sounds: no murmur Gastrointestinal (Abdomen): Inspection/Auscultation: normal bowel sounds Percussion/Palpation: abdomen soft; abdomen nontender Musculoskeletal: Head/Neck/Chest: normocephalic and head atraumatic LUE in sling with movement noted to fingers; cap refill immediate Skin: no rashes, warm and dry Neurologic: moves all extremities (did not test LUE) Psychiatric: A+Ox3, euthymic affect Results & Data ([facility]) Vital Signs (Past 12 Hours) Vital Signs Temp Pulse Resp BP Pulse Ox 11/10/19 12:00 76 16 94/58 L 92 11/10/19 08:13 36.6 C 75 16 170/73 H 94 PG Care Time/CCT Total # of Minutes Spent Total Time Spent with Patient: Total time spent is greater than 50% in coordination of care (as documented) at patient's floor/unit and/or counseling patient: Coding Level of Care Code 48158 Subseq Hosp Care Lvl 3 Diagnoses Humeral fracture S42.309A Multiple falls R29.6 Acute UTI N39.0 Diabetes mellitus E11.9 Diabetes mellitus complication status: without complication Diabetes mellitus longterm insulin use: without exterminator helper use Diabetes mellitus type: type 2 ARF (acute renal failure) N17.9 HTN (hypertension) I10 Hypertension type: essential hypertension Hypothyroidism E03.9 MCI (mild cognitive impairment) G31.84 Hyperlipidemia E78.5 GERD (gastroesophageal reflux disease) K21.9 Hypomagnesemia E83.42 1st degree AV block I44.0 DVT prophylaxis Z29.9 (1) Diabetes mellitus Diabetes mellitus complication status: without complication Diabetes mellitus longterm insulin use: without longterm use Diabetes mellitus type: type 2 Qualified Code(s): E11.9 - Type 2 diabetes mellitus without complications (2) HTN (hypertension) Hypertension type: essential hypertension Qualified Code(s): I10 - Essential (primary) hypertension
[2019-11-10] MEDS ORDERED: CIPROFLOXACIN 250 MG TAB PO SCH (21:00)
[2019-11-11] MEDS: ACETAMINOPHEN 500 MG TAB PO SCH ×3 (08:07→20:36)
[2019-11-11] MEDS: CHOLECALCIFEROL 1,000 UNITS 25 MCG TAB PO SCH (08:08)
[2019-11-11] MEDS: ESCITALOPRAM OXALATE 10 MG TAB PO SCH (08:08)
[2019-11-11] MEDS: hydrOXYzine HCl 10 MG TAB PO SCH ×2 (08:08→20:37)
[2019-11-11] MEDS: AMLODIPINE BESYLATE 5 MG TAB PO SCH (08:08)
[2019-11-11] MEDS: PANTOprazole 40 MG TAB PO SCH (08:09)
[2019-11-11] MEDS: PRAVASTATIN SOD 40 MG TAB PO SCH (08:09)
[2019-11-11] MEDS: FERROUS SULFATE 325 MG TAB PO SCH (08:09)
[2019-11-11] MEDS: NYSTATIN POWDER 15GM BTL EXT SCH ×2 (09:02→20:36)
[2019-11-11] MEDS: INSULIN ASPART 100 UNITS/ML 3 ML PEN SC SCH ×5 (09:02→20:53)
[2019-11-11] MEDS: INSULIN GLARGINE SOLOSTAR 100 UNITS/ML 3 ML PEN SC SCH (09:02)
[2019-11-11] MEDS: TRAMADOL HCL 50 MG TABLET PO PRN ×2 (10:27→14:49)
--- NOTE | 2019-11-11 11:08 | Hospitalist Progress Note ---
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 phalanx possible nondisplaced fx - Pain control with MARK Tylenol and Tramadol 25 mg PRN - was oversedated with Percocet 5 mg - Orthopedics following - possibly conservative measures - sling use, only move elbow/hand; serial xrays to assess for any further displacement that may require surgical intervention - PT/OT (2) Multiple falls: - Falls x 2 on 11/08 - PT/OT (3) Acute UTI: - UCx with E. coli - pansensitive - Given asymptomatic nature will complete Ciprofloxacin x 3 days ended on 11/10 (4) Diabetes mellitus: - A1c - 10 -- May benefit from slowly improving this to around 8 given age but would need to be cautious given age and risk for hypoglycemia - Continue SSI at current time; Lantus 8 units SC daily - hold oral medications (5) ARF (acute renal failure): - Baseline Cr 1.1-1.2 - Cr 1.4 on admission but back to baseline - Will continue to monitor (6) HTN (hypertension): - Continue Amlodipine 2.5 mg daily and hold Lisinopril/HCTZ for now - likely can be resumed soon (7) Hypothyroidism: - TSH 4.8 so slightly increased but T4 is normal - possibly reactive given falls/injury but may be normal variant given age - Not currently on medications for this; recommend repeat TSH in 4-6 weeks (8) MCI (mild cognitive impairment): - STABLE (9) Hyperlipidemia: - Continue pravastatin 40 mg daily (10) GERD (gastroesophageal reflux disease): - Continue PPI (11) Hypomagnesemia: - RESOLVED; replete as necessary (12) 1st degree AV block: - Not present on EKG from 2016 - unlikely contributing to falls - Currently no intervention warranted (13) DVT prophylaxis: SCDs Disposition: Continue PT/OT; pain control; awaiting bed at [place]/auth is obtained Admission and Anticipated Discharge Date Admission Date: November 08, 2019 Anticipated date of discharge: 11/11/19 Supervising Physician Co-Signing Physician Notes PA Supervision Note: I did not personally see or examine the patient today, but I verified all mcbride points of ADRI Jenkins's assessment and plan with the following exceptions/additions: none Subjective Reports ongoing shouldler pain. Looks more uncomfortable today then yesterday. States the tylenol MARK does seem to help but when it wears off she is having a lot of pain. She got drowsy on Percocet but could try 25 mg Tramadol and see if this is less sedating. She is tolerating a diet without issue. States it has been a couple days since she had a bowel movement but does not feel constipated. Will start a stool softener and encouraged ambulation with assistance. Review of Systems Constitutional: no fever and no chills Respiratory: no cough and no dyspnea Cardiovascular: no chest pain, no palpitations, no lightheadedness and no edema Gastrointestinal: no abdominal pain, no nausea, no vomiting, no constipation and no diarrhea/loose stools Genitourinary: no dysuria Musculoskeletal: + joint pain (L arm/fingers) Integumentary: no rash Physical Exam Constitutional: WD/WN, vitals as above Eyes: sclerae not anicteric ENMT: Ears: no hearing impairment Neck: trachea midline Respiratory: normal respiratory effort, lungs clear to auscultation Cardiovascular: Rate/Rhythm: regular rate and regular rhythm Heart Sounds: no murmur Gastrointestinal (Abdomen): Inspection/Auscultation: normal bowel sounds Percussion/Palpation: abdomen soft; abdomen nontender Musculoskeletal: Head/Neck/Chest: normocephalic and head atraumatic L arm in sling with ice applied Skin: no rashes, warm and dry Neurologic: moves all extremities (did not test LUE) Psychiatric: A+Ox3, euthymic affect Results & Data ([facility]) Vital Signs (Past 12 Hours) Vital Signs Temp Pulse Resp BP Pulse Ox 11/11/19 07:37 36.6 C 78 16 169/72 H 95 11/10/19 23:40 36.5 C 75 18 134/70 94 PG Care Time/CCT Total # of Minutes Spent Total Time Spent with Patient: Total time spent is greater than 50% in coordination of care (as documented) at patient's floor/unit and/or counseling patient: Coding Level of Care Code 92182 Subseq Hosp Care Lvl 2 Diagnoses Humeral fracture S42.309A Multiple falls R29.6 Acute UTI N39.0 Diabetes mellitus E11.9 Diabetes mellitus complication status: without complication Diabetes mellitus auto body customizer insulin use: without auto body customizer use Diabetes mellitus type: type 2 ARF (acute renal failure) N17.9 HTN (hypertension) I10 Hypertension type: essential hypertension Hypothyroidism E03.9 MCI (mild cognitive impairment) G31.84 Hyperlipidemia E78.5 GERD (gastroesophageal reflux disease) K21.9 Hypomagnesemia E83.42 1st degree AV block I44.0 DVT prophylaxis Z29.9 (1) Diabetes mellitus Diabetes mellitus complication status: without complication Diabetes mellitus auto body customizer insulin use: without auto body customizer use Diabetes mellitus type: type 2 Qualified Code(s): E11.9 - Type 2 diabetes mellitus without complications (2) HTN (hypertension) Hypertension type: essential hypertension Qualified Code(s): I10 - Essential (primary) hypertension
[2019-11-11] MEDS ORDERED: POLYETHYLENE (MIRALAX) 17 GM PACK PO PRN (11:09)
[2019-11-11] MEDS: DOCUSATE SODIUM 100 MG CAP PO SCH ×2 (12:53→20:36)
[2019-11-11] MEDS ORDERED: INSULIN GLARGINE SOLOSTAR 100 UNITS/ML 3 ML PEN SC ONE (14:00)
[2019-11-12] MEDS: DOCUSATE SODIUM 100 MG CAP PO SCH ×2 (09:02→20:30)
[2019-11-12] MEDS: hydrOXYzine HCl 10 MG TAB PO SCH ×2 (09:02→20:31)
[2019-11-12] MEDS: ACETAMINOPHEN 500 MG TAB PO SCH ×3 (09:02→20:31)
[2019-11-12] MEDS: CHOLECALCIFEROL 1,000 UNITS 25 MCG TAB PO SCH (09:02)
[2019-11-12] MEDS: PRAVASTATIN SOD 40 MG TAB PO SCH (09:02)
[2019-11-12] MEDS: AMLODIPINE BESYLATE 5 MG TAB PO SCH (09:02)
[2019-11-12] MEDS: ESCITALOPRAM OXALATE 10 MG TAB PO SCH (09:02)
[2019-11-12] MEDS: PANTOprazole 40 MG TAB PO SCH (09:02)
[2019-11-12] MEDS: NYSTATIN POWDER 15GM BTL EXT SCH ×2 (09:03→20:30)
[2019-11-12] MEDS: INSULIN ASPART 100 UNITS/ML 3 ML PEN SC SCH ×4 (09:03→20:37)
[2019-11-12] MEDS: FERROUS SULFATE 325 MG TAB PO SCH (09:03)
[2019-11-12] MEDS: INSULIN GLARGINE SOLOSTAR 100 UNITS/ML 3 ML PEN SC SCH (09:04)
[2019-11-12] MEDS: TRAMADOL HCL 50 MG TABLET PO PRN ×2 (09:07→20:35)
[2019-11-12] MEDS: LISINOPRIL/HCTZ 20/12.5MG 1 TAB TAB PO SCH (09:14)
--- NOTE | 2019-11-12 10:27 | Hospitalist Progress Note ---
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 phalanx possible nondisplaced fx - Pain control with MARK Tylenol and Tramadol 25 mg PRN - was oversedated with Percocet 5 mg - Orthopedics following - possibly conservative measures - sling use, only move elbow/hand; serial xrays to assess for any further displacement that may require surgical intervention -- Plan for F/U in [address] Michel - requesting no PT of shoulder x 3 weeks then can resume pending XR to show satisfactory healing; wants weekly XR of shoulder AP, transthoracic lateral, and scapular Y views with arm in sling - Continue PT/OT (2) Multiple falls: - Falls x 2 on 11/08 - Continue PT/OT (3) Acute UTI: - UCx with E. coli - pansensitive - Given asymptomatic nature will complete Ciprofloxacin x 3 days ended on 11/10 (4) Diabetes mellitus: - A1c - 10 -- May benefit from slowly improving this to around 8 given age but would need to be cautious given age and risk for hypoglycemia - Continue SSI at current time; increase Lantus to 13 units SC daily - hold oral medications (5) ARF (acute renal failure): - Baseline Cr 1.1-1.2 - Cr 1.4 on admission but back to baseline - Will continue to monitor (6) HTN (hypertension): - Continue Amlodipine 2.5 mg daily and Lisinopril/HCTZ (7) Hypothyroidism: - TSH 4.8 so slightly increased but T4 is normal - possibly reactive given falls/injury but may be normal variant given age - Not currently on medications for this; recommend repeat TSH in 4-6 weeks (8) MCI (mild cognitive impairment): - STABLE (9) Hyperlipidemia: - Continue pravastatin 40 mg daily (10) GERD (gastroesophageal reflux disease): - Continue PPI (11) Hypomagnesemia: - RESOLVED; replete as necessary (12) 1st degree AV block: - Not present on EKG from 2016 - unlikely contributing to falls - Currently no intervention warranted (13) DVT prophylaxis: SCDs Disposition: Continue PT/OT; pain control; awaiting bed at [facility]/auth is obtained - possibly today or tomorrow Admission and Anticipated Discharge Date Admission Date: November 08, 2019 Anticipated date of discharge: 11/13/19 Supervising Physician Co-Signing Physician Notes PA Supervision Note: I did not personally see or examine the patient today, but I verified all mcbride points of ADRI Jenkins's assessment and plan with the following exceptions/additions: none Subjective Continues to have ongoing arm pain but the Tramadol is helping. However, mornings tend to be worse for her but she tends to have better pain control come the afternoon. Will recheck on her this afternoon as well. She did move her bowels yesterday. Tolerating her diet but states the food is too much and she really isn't working up an appetite here. We are awaiting bed availability at [facility]. She verbalizes no new complaints. Her BP has been elevated and will resume home medications. Review of Systems Constitutional: no fever and no chills Respiratory: no cough and no dyspnea Cardiovascular: no chest pain, no palpitations and no lightheadedness Gastrointestinal: no abdominal pain, no nausea, no vomiting, no constipation and no diarrhea/loose stools Genitourinary: no dysuria Musculoskeletal: + joint pain (L arm and finger) Integumentary: no rash Neurologic: no tingling and no numbness Physical Exam Constitutional: WD/WN, vitals as above Eyes: sclerae not anicteric ENMT: Ears: no hearing impairment Neck: trachea midline Respiratory: normal respiratory effort, lungs clear to auscultation Cardiovascular: Rate/Rhythm: regular rate and regular rhythm Heart Sounds: no murmur Gastrointestinal (Abdomen): Inspection/Auscultation: normal bowel sounds Percussion/Palpation: abdomen soft; abdomen nontender Musculoskeletal: Head/Neck/Chest: normocephalic and head atraumatic L arm in sling with movement to fingers noted; cap refill immediate; equal temperature of fingers/hands Skin: no rashes, warm and dry Neurologic: moves all extremities (did not test LUE) Psychiatric: A+Ox3, euthymic affect Results & Data ([facility]) Vital Signs (Past 12 Hours) Vital Signs Temp Pulse Resp BP Pulse Ox 11/12/19 08:17 36.4 C L 67 18 182/78 H 95 11/11/19 22:55 36.5 C 75 16 146/71 H 96 PG Care Time/CCT Total # of Minutes Spent Total Time Spent with Patient: Total time spent is greater than 50% in coordination of care (as documented) at patient's floor/unit and/or counseling patient: Coding Level of Care Code 64177 Subseq Hosp Care Lvl 2 Diagnoses Humeral fracture S42.309A Multiple falls R29.6 Acute UTI N39.0 Diabetes mellitus E11.9 Diabetes mellitus complication status: without complication Diabetes mellitus superintendent terminal insulin use: without superintendent terminal use Diabetes mellitus type: type 2 ARF (acute renal failure) N17.9 HTN (hypertension) I10 Hypertension type: essential hypertension Hypothyroidism E03.9 MCI (mild cognitive impairment) G31.84 Hyperlipidemia E78.5 GERD (gastroesophageal reflux disease) K21.9 Hypomagnesemia E83.42 1st degree AV block I44.0 DVT prophylaxis Z29.9 (1) Diabetes mellitus Diabetes mellitus complication status: without complication Diabetes mellitus care home insulin use: without care home use Diabetes mellitus type: type 2 Qualified Code(s): E11.9 - Type 2 diabetes mellitus without complications (2) HTN (hypertension) Hypertension type: essential hypertension Qualified Code(s): I10 - Essential (primary) hypertension
[2019-11-13 08:27] LABS: Hematocrit (blood only) 32.2 % (37-47); Hemoglobin 10.4 g/dL (12.0-16.0); Mean Corpuscular Hemoglobin 27.8 pg (25-34); Mean Corpuscular Hgb Conc 32.3 g/dL (32-36); Mean Corpuscular Volume 86.1 fL (80-100); Mean Platelet Volume 9.4 fL (7.4-10.4); Platelet Count 330 K/uL (130-400); RDW Coefficient of Variation 13.8 % (11.5-14.5); RDW Standard Deviation 43.7 fL (36.4-46.3); Red Blood Count 3.74 M/uL (4.2-5.4); White Blood Count 8.71 K/uL (4.8-10.8)
[2019-11-13 08:52] LABS: BUN Creatinine Ratio 24.3 (10-20); Calcium 9.7 mg/dl (8.5-10.1); Creatinine Clr Calc Pharmacy 21.5 ml/min; Est GFR (African American) 38.7; Est GFR (Non-African American) 33.4; Potassium 4.4 mmol/L (3.5-5.1)
[2019-11-13] MEDS: INSULIN ASPART 100 UNITS/ML 3 ML PEN SC SCH ×2 (09:05→12:54)
[2019-11-13] MEDS: DOCUSATE SODIUM 100 MG CAP PO SCH (09:07)
[2019-11-13] MEDS: FERROUS SULFATE 325 MG TAB PO SCH (09:07)
[2019-11-13] MEDS: ESCITALOPRAM OXALATE 10 MG TAB PO SCH (09:07)
[2019-11-13] MEDS: INSULIN GLARGINE SOLOSTAR 100 UNITS/ML 3 ML PEN SC SCH (09:07)
[2019-11-13] MEDS: AMLODIPINE BESYLATE 5 MG TAB PO SCH (09:08)
[2019-11-13] MEDS: NYSTATIN POWDER 15GM BTL EXT SCH (09:08)
[2019-11-13] MEDS: ACETAMINOPHEN 500 MG TAB PO SCH ×2 (09:09→14:17)
[2019-11-13] MEDS: LISINOPRIL/HCTZ 20/12.5MG 1 TAB TAB PO SCH (09:09)
[2019-11-13] MEDS: PRAVASTATIN SOD 40 MG TAB PO SCH (09:09)
[2019-11-13] MEDS: PANTOprazole 40 MG TAB PO SCH (09:09)
[2019-11-13] MEDS: CHOLECALCIFEROL 1,000 UNITS 25 MCG TAB PO SCH (09:10)
[2019-11-13] MEDS: hydrOXYzine HCl 10 MG TAB PO SCH (09:10)
--- NOTE | 2019-11-13 14:15 | Discharge Summary ---
Date of Service November 13, 2019 Admission HPI Per Admitting Provider 89 y/o F c/o falls. Pt states she fell today x2. She states she just lost her balance on both occasions. Denies LOC/syncope/pre-syncope. She did hit the L side of the back of her head with one fall. She states that there have been no other recent falls. She states that yesterday was a usual day for her. She was able to manage her usual daily activities without issue. She currently has pain to the L UE. She did develop nausea leading to one episode of emesis while in the ED. None prior. She states her stools have been a bit loose recently. Pt denies fever, SOB, chest pain, abd pain, LE pain or swelling. Pt states she only smoked in social settings when she was much younger and "out with the girls". It was never a steady habit. Principal Diagnosis L Humerus Fracture Discharge Exam Constitutional WD/WN, vitals as above Eyes sclerae not anicteric ENMT Ears: no hearing impairment Neck trachea midline Respiratory normal respiratory effort, lungs clear to auscultation Cardiovascular Rate/Rhythm: regular rate and regular rhythm Heart Sounds: no murmur Gastrointestinal (Abdomen) Inspection/Auscultation: normal bowel sounds Percussion/Palpation: abdomen soft; abdomen nontender Musculoskeletal Head/Neck/Chest: normocephalic and head atraumatic LUE in sling with movement to fingers; cap refill immediate; equal temperature of fingers Skin no rashes, warm and dry Neurologic moves all extremities (did not test LUE) Psychiatric A+Ox3, euthymic affect Discharge Data Allergies Allergy/AdvReac Type Severity Reaction Status Date / Time amoxicillin Allergy Intermediate RASH Verified 11/11/19 10:20 cephalexin Allergy Intermediate RASH Verified 11/11/19 10:20 Consultations 11/08/19 10:38 Consult Orthopedic Surgery Stat 11/08/19 14:45 ED Decision to Admit Stat 11/08/19 17:00 Consult Case Management - Discharge Planning Routine Ordered Studies 11/08/19 10:45 CT head/brain wo con Stat Hospital Course (1) Humeral fracture: 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 phalanx possible nondisplaced fx - Pain control with MARK Tylenol and Tramadol 25 mg PRN - was oversedated with Percocet 5 mg - Orthopedics followed - conservative measures - sling use, only move elbow/hand; serial xrays to assess for any further displacement that may require surgical intervention -- Plan for F/U in [address] Michel - requesting no PT of shoulder x 3 weeks then can resume pending XR to show satisfactory healing; wants weekly XR of shoulder AP, transthoracic lateral, and scapular Y views with arm in sling - Continue PT/OT (2) Multiple falls: - Falls x 2 on 11/08 - PT/OT utilized (3) Acute UTI: - UCx with E. coli - pansensitive - Given asymptomatic nature will complete Ciprofloxacin x 3 days ended on 11/10 (4) Diabetes mellitus: - A1c - 10 -- May benefit from slowly improving this to around 8 given age but would need to be cautious given age and risk for hypoglycemia - Continue home medications - can use SSI in facility and recommend PCP F/U to discuss medication adjustments - Appears A1c just 7.6 in June which for her age would be around goal (5) ARF (acute renal failure): - Baseline Cr 1.1-1.2 - Cr 1.4 and making adequate urine - incontinent at times - Recommend holing Lisinopril/HCTZ a couple days and encourage hydration; can repeat BMP at [facility] to confirm stability (6) HTN (hypertension): - Continue Amlodipine 2.5 mg daily and Lisinopril/HCTZ as discussed above (7) Hypothyroidism: - TSH 4.8 so slightly increased but T4 is normal - possibly reactive given falls/injury but may be normal variant given age - Not currently on medications for this; recommend repeat TSH in 4-6 weeks (8) MCI (mild cognitive impairment): - STABLE (9) Hyperlipidemia: - Continue pravastatin 40 mg daily (10) GERD (gastroesophageal reflux disease): - Continue PPI (11) Hypomagnesemia: - RESOLVED; replete as necessary (12) 1st degree AV block: - Not present on EKG from 2016 - unlikely contributing to falls - Currently no intervention warranted (13) DVT prophylaxis: SCDs Disposition: [facility]; F/U with Dr. Michel in 1 week; F/U with PCP in 7-10 days if possible Total Time Total Time Spent Total Time Spent (In Minutes): Greater than 30 minutes Discharge Plan Discharge Items Patient Disposition: Transfer Shelter Fac Reason For Visit: HUMERAL FX,UTI Discharge Diagnosis: Humeral Fracture Activity: Per Instructions section Non-emergency contact: Primary Care Provider Call non-emergency contact if: you have any medication questions, your symptoms worsen and you have a fever Follow-up/Referrals: Kael Cruz MD [Primary Care Provider] - (PLEASE CALL EITHER [phone] OR [phone] IF YOU NEED TO RESCHEDULE ) Bruce Michel MD [Surgeon] - (Follow up in [address] 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 phalanx possible nondisplaced fx - Pain control with MARK Tylenol and Tramadol 25 mg PRN - was oversedated with Percocet 5 mg -- No sedation noted with Tramadol - could consider increase in Tramadol if further pain control is needed and watch for sedation - Orthopedics followed - conservative measures - sling use, only move elbow/hand; serial xrays to assess for any further displacement that may require surgical intervention -- Plan for F/U in [address] Michel (see their directions below with office number) - requesting no PT of shoulder x 3 weeks then can resume pending XR to show satisfactory healing; wants weekly XR of shoulder AP, transthoracic lateral, and scapular Y views with arm in sling Multiple falls: - Falls x 2 on 11/08 Acute UTI: - UCx with E. coli - pansensitive - no urinary symptoms; Complete treatment with Ciprofloxacin Diabetes mellitus: - A1c - 10 (average sugar high 200s) -- May benefit from slowly improving this to around 8 given age but would need to be cautious given age and risk for hypoglycemia - Continue home medications - son reports a medication change due to insurance which may account for her A1c of 7.6 in June to now being 10 - We did use sliding scale insulin. Recommend continuing oral medications and can use a insulin aspart sliding scale or scale per facility - Given resumption of oral medications could consider insulin scale with range of 140-180 mg/dL with a correction factor of 20 mg/dL/unit - Should follow-up with family doctor for further medication adjustments - She can very from around 200-300 range - maybe some stress related from pain/fracture ARF (acute renal failure): - Baseline Cr 1.1-1.3 - Cr 1.4 but making adequate urine - Consider holding her Lisinopril/HCTZ for 1-2 days and encourage fluid intake given the higher glucose readings - Can repeat BMP in 2-3 days to reassess HTN (hypertension): - Continue Amlodipine 2.5 mg daily - BP largely run high which may partially be from pain but could consider increase in Amlodipine - As mentioned above could hold Lisinopril/HCTZ one-two days and encourage more water intake Hypothyroidism: - TSH 4.8 so slightly increased but T4 is normal - possibly reactive given falls/injury but may be normal variant given age - Not currently on medications for this; recommend repeat TSH in 4-6 weeks MCI (mild cognitive impairment): - STABLE Hyperlipidemia: - Continue pravastatin 40 mg daily GERD (gastroesophageal reflux disease): - Continue PPI 1st degree AV block: - Not present on EKG from 2016 - unlikely contributing to falls - Currently no intervention warranted Disposition: - Recommend F/U with PCP in 7-10 days - Needs F/U with Dr. Michel in 1 week with Xrays - [phone] Addtl Principal System Software Engineer Provider Instructions: Follow up with Dr. Michel in 1 week for shoulder x rays, [phone]. Sling at all times, may loosen for elbow motion only. Pending Studies at Discharge: No Stand-Alone Forms: My [facility] threadsy, Opioid Pain Management Skilled Items Patient informed of condition?: Yes DNR: Yes Discharge Level of Care: Skilled Communicable Disease: No Discharge Prognosis: Stable Lines: None Urinary Catheter: No Medications and DC Order Prescriptions: New tramadol 50 mg Tablet 25 mg PO Q4H PRN (Reason: pain) 3 Days Qty: 9 RF: 0 acetaminophen 500 mg Tablet 1,000 mg PO TID 14 Days Qty: 84 RF: 0 Continued (DME) OneTouch Ultra Blue Test Strip strip See Dose Instructions .ROUTE .MEDSUPPLY Qty: 100 RF: 3 glimepiride 2 mg tablet 2 mg PO DAILY Qty: 90 RF: 3 lisinopril-hydrochlorothiazide 20-12.5 mg tablet 1 tab PO DAILY Qty: 90 RF: 1 omeprazole 20 mg capsule,delayed release(DR/EC) 20 mg PO DAILY Qty: 90 RF: 3 amlodipine 2.5 mg tablet 2.5 mg PO DAILY Qty: 90 RF: 0 cholecalciferol (vitamin D3) 2,000 unit capsule 2,000 units PO DAILY RF: 0 escitalopram oxalate 10 mg tablet 10 mg PO DAILY Qty: 90 RF: 0 metformin 1,000 mg tablet 1,000 mg PO BID Qty: 180 RF: 0 vitamin A-vitamin C-vit E-min tablet 1 tab PO DAILY RF: 0 ondansetron 4 mg tablet,disintegrating 4 mg PO Q12H PRN (Reason: Nausea) Qty: 60 RF: 0 (DME) lancets [OneTouch Delica Lancets] 33 gauge misc See Dose Instructions .ROUTE .MEDSUPPLY Qty: 100 RF: 0 (DME) OneTouch Ultra Blue Test Strip strip See Dose Instructions .ROUTE .MEDSUPPLY Qty: 10 RF: 0 ferrous sulfate 325 mg (65 mg iron) tablet 325 mg PO DAILY RF: 0 linagliptin 5 mg tablet 5 mg PO DAILY Qty: 30 RF: 0 pravastatin [Pravachol] 40 mg Tablet 40 mg PO DAILY RF: 0 hydroxyzine HCl 10 mg Tablet 10 mg PO BID RF: 0 fish oil-dha-epa 1,200-144-216 mg Capsule 1 cap PO DAILY RF: 0 Discharge Orders: Discharge Order (Routine); Ordered 11/13/19 Ordered By: Marilee Aguilar/Other Patient Handouts: Diabetes Java Lead Architect Complications, Diabetes Healthy Meals, Understanding Carbohydrates, Diabetes Exercise Benefits, Diabetes Manage A1C Test Admission Data Admit Date/Time: 11/08/19 15:25 Attending Provider: Isaias Perry Admit Provider: Isabel Mike Primary Care Provider: Kael Cruz Other Providers: Jamey Santos ; Isabel Mike ; Lesli Last Other Interventions: Discharge Summary Assessment (RN) Last Done: 11/13/19 13:03 DC Date/Time DO NOT enter until pt leaves facility: 11/13/19 15:06 Supervising Physician Co-Signing Physician Notes Attending note: patient seen and examined with Marilee Alice PA-C. I agree with her discharge summary. I personally reviewed the labs and imaging findings. patient sitting up in chair, no distress, breathing well, eating well still with pain in shoulder but getting better feels ready for discharge - Humerus fracture: treat with conservative measures with sling - PEPE: resolved with fluids, Cr stable for days Coding Level of Care Code D/C Day Management >30 mins Diagnoses Humeral fracture S42.309A Multiple falls R29.6 Acute UTI N39.0 Diabetes mellitus E11.9 Diabetes mellitus complication status: without complication Diabetes mellitus care home insulin use: without truck terminal manager use Diabetes mellitus type: type 2 ARF (acute renal failure) N17.9 HTN (hypertension) I10 Hypertension type: essential hypertension Hypothyroidism E03.9 MCI (mild cognitive impairment) G31.84 Hyperlipidemia E78.5 GERD (gastroesophageal reflux disease) K21.9 Hypomagnesemia E83.42 1st degree AV block I44.0 DVT prophylaxis Z29.9
== END 2019-11-13 15:06 | DRG 543 ==
LOC: ED 09:09 → SUATTDRO 15:25 → 3W 15:25

== ENCOUNTER 2021-02-21 08:42 | Inpatient (IN) ==
--- NOTE | 2021-02-21 08:53 | Emergency Department Note ---
History of Present Illness General Chief complaint: Bradycardia Stated complaint: SOB History of Present Illness This is a very pleasant 89-year-old female coming from [facility] with a notable past medical history of first-degree AV block, hypertension, hypothyroidism who presents today for shortness of breath, also found to have bradycardia and route to the hospital. Patient states that over the last shalini ral days, she is feeling progressively more short of breath. She says this is intermittently been associated with a cough, but no other illness-like symptoms. She denies any nausea, vomiting, diarrhea. She further denies any chest pain, pressure, feelings of palpitations. Says that all of this has been quite unusual for her. Denies any pre-existing pulmonary disease. Denies any home oxygen requirement. Other than shortness of breath at present, denies any other concerns. In route to the hospital, she was found to be bradycardic, between 30-40bpm, with blood pressures on arrival being around 180/50. She is requiring approximately 3 to 4 L nasal cannula to saturate above 90%. She is fully alert and oriented. At the bedside, we did discuss further work-up and potential management necessities for bradycardia if it were to deteriorate. Despite pre- existing DNR/DNI, patient does state that she wants to undergo chest compressions, intubation, and synchronization if needed. She was also amenable to catheterization if needed. Son was at the bedside when this was discussed. Home Medications Medication Instructions Recorded Confirmed Type blood sugar diagnostic #100 ea 05/12/19 06/27/19 Rx amlodipine 2.5 mg tablet 2.5 mg PO QAM #90 tab 06/22/19 02/21/21 History blood sugar diagnostic #10 ea 06/22/19 06/22/19 History escitalopram oxalate 10 mg tablet 10 mg PO QAM #90 tab 06/22/19 02/21/21 History ferrous sulfate 325 mg (65 mg 325 mg PO BIDM tab 06/22/19 02/21/21 History iron) tablet lancets 33 gauge #100 ea 06/22/19 06/22/19 History linagliptin 5 mg tablet 5 mg PO QAM #30 tab 06/22/19 02/21/21 History hydroxyzine HCl 10 mg PO HS 11/08/19 02/21/21 History carboxymethylcellulose sodium 2 drp OPB QID 02/21/21 02/21/21 History [Refresh] cholecalciferol (vitamin D3) 25 mcg PO QAM 02/21/21 02/21/21 History [Vitamin D3] insulin aspart U-100 [Novolog 0 sliding scale dose SUBCUT UD 02/21/21 02/21/21 History U-100 Insulin aspart] insulin glargine [Lantus U-100 15 unit SUBCUT DAILY 02/21/21 02/21/21 History Insulin] ipratropium-albuterol 3 ml INHALATION .ONCE PRN 02/21/21 02/21/21 History levothyroxine 50 mcg PO DAILYBB 02/21/21 02/21/21 History mirtazapine 15 mg PO HS 02/21/21 02/21/21 History omeprazole 20 mg PO BID 02/21/21 02/21/21 History pravastatin 40 mg PO HS 02/21/21 02/21/21 History Allergies Allergy/AdvReac Type Severity Reaction Status Date / Time amoxicillin Allergy Intermediate RASH Verified 02/21/21 09:42 cephalexin Allergy Intermediate RASH Verified 02/21/21 09:42 Past Med/Surg History Medical History (Updated 02/25/21 @ 09:27 by Liudmila Rodrigues MD) Diabetes mellitus Gait abnormality HTN (hypertension) Hypothyroidism Kidney stones MCI (mild cognitive impairment) Vitamin B12 deficiency (dietary) anemia Vitamin D deficiency Surgical History H/O colonoscopy History of back surgery tail bone History of bladder surgery History of cataract surgery History of oral surgery S/P appendectomy S/P hysterectomy Family History Mother Diabetes Hypertension Brother Diabetes Sister Breast cancer Social History Smoking Status: Never smoker Second Hand Exposure: No; Hx Alcohol Use: No Hx Substance Use: No Preferred Language: Guatemalan Communication Ability: Effective Visual Impairment: Diminished [place] Diver Required: No Beliefs That Will Affect Care: None marital status: / Current Living Situation: Personal Care Facility current occupational status: retired Feels Safe at Home: Yes caffeine: Yes Seatbelt Use: always Assistive Devices: Glasses Review of Systems See HPI for pertinent positives & negatives. and A total of 10 systems reviewed and were otherwise negative Physical Exam Vital Signs Vital Signs - 24 hr 02/21/21 08:45 02/21/21 08:53 02/21/21 09:00 Temperature 36.7 C Temperature Source Oral Pulse Rate 36 L 37 L Pulse Rate from SpO2 Sensor 37 L Respiratory Rate 9 L 12 Respiratory Effort / Characteristics Spontaneous Short of Breath Respiratory Depth Shallow Respiratory Pattern Bradypnea Blood Pressure 180/50 H Blood Pressure Mean 93 Blood Pressure Position Lying Pulse Oximetry 88 L 88 L 92 Oxygen Delivery Method Room Air Room Air Nasal Cannula Nasal Cannula Oxygen Flow Rate 0 2 Sepsis Recent Fever Within 48 Hours No Sepsis New/Unexplained Change in Mental Status N/A Sepsis Action Taken by Nursing No Action Required Oxygen Flow Rate - Titration 2 Pulse Oximetry Post Tiitration 97 02/21/21 09:30 02/21/21 10:00 02/21/21 10:30 Temperature Temperature Source Pulse Rate 35 L 36 L 35 L Pulse Rate from SpO2 Sensor 35 L 36 L 34 L Respiratory Rate 13 18 10 L Respiratory Effort / Characteristics Respiratory Depth Respiratory Pattern Blood Pressure Blood Pressure Mean Blood Pressure Position Pulse Oximetry 93 94 97 Oxygen Delivery Method Nasal Cannula Nasal Cannula Nasal Cannula Oxygen Flow Rate 2 2 2 Sepsis Recent Fever Within 48 Hours Sepsis New/Unexplained Change in Mental Status Sepsis Action Taken by Nursing Oxygen Flow Rate - Titration Pulse Oximetry Post Tiitration Vital signs reviewed. General: Elderly but well-appearing 89 yo female, in no significant distress. HEENT: No scleral icterus, PERRLA, neck supple. Atraumatic. Cardiovascular: Bradycardic rate and regular rhythm, no extra sounds. Pulmonary: Clear to auscultation bilaterally, normal work of breathing. Abdomen: Soft, nontender, nondistended, positive bowel sounds. Musculoskeletal: Atraumatic, no peripheral edema. Neurologic: Patient awake alert and oriented x 3 Skin: Warm, dry, no rash Course Administered Medications Acetaminophen (Acetaminophen 500 Mg Tab) 1,000 mg PO TID MARK Stop: 03/24/21 18:04 Last Admin: 02/26/21 09:37 Dose: Not Given Documented by: [id number] Admin: 02/25/21 20:37 Dose: 1,000 mg Documented by: [id number] Admin: 02/25/21 13:47 Dose: Not Given Documented by: [id number] Admin: 02/25/21 08:21 Dose: 1,000 mg Documented by: [id number] Admin: 02/24/21 20:18 Dose: 1,000 mg Documented by: [id number] Admin: 02/24/21 13:51 Dose: 1,000 mg Documented by: [id number] Admin: 02/24/21 07:34 Dose: 1,000 mg Documented by: [id number] Admin: 02/23/21 21:21 Dose: 1,000 mg Documented by: [id number] Admin: 02/23/21 14:24 Dose: 1,000 mg Documented by: [id number] Admin: 02/23/21 08:22 Dose: 1,000 mg Documented by: [id number] Admin: 02/22/21 18:08 Dose: Not Given Documented by: [id number] Amlodipine Besylate (Amlodipine Besylate 5 Mg Tab) 2.5 mg PO BID MARK Stop: 03/26/21 20:59 Last Admin: 02/26/21 09:27 Dose: 2.5 mg Documented by: [id number] Admin: 02/25/21 20:38 Dose: 2.5 mg Documented by: [id number] Admin: 02/25/21 08:22 Dose: 2.5 mg Documented by: [id number] Admin: 02/24/21 20:21 Dose: 2.5 mg Documented by: [id number] Dextrose (Dextrose 50% 50 Ml Syringe) 25 - 50 ml IV UD PRN; Protocol PRN Reason: Hypoglycemia Protocol Stop: 03/23/21 16:37 Last Admin: 02/21/21 20:04 Dose: 25 ml Documented by: [id number] Escitalopram Oxalate (Escitalopram Oxalate 10 Mg Tab) 10 mg PO QAM MARK Stop: 03/24/21 08:59 Last Admin: 02/26/21 09:28 Dose: 10 mg Documented by: [id number] Admin: 02/25/21 08:21 Dose: 10 mg Documented by: [id number] Admin: 02/24/21 07:35 Dose: 10 mg Documented by: [id number] Admin: 02/23/21 08:22 Dose: 10 mg Documented by: [id number] Admin: 02/22/21 08:02 Dose: 10 mg Documented by: [id number] Ferrous Sulfate (Ferrous Sulfate 325 Mg Tab) 325 mg PO BIDM [facility] Stop: 03/23/21 16:59 Last Admin: 02/26/21 09:25 Dose: 325 mg Documented by: [id number] Admin: 02/25/21 15:43 Dose: 325 mg Documented by: [id number] Admin: 02/25/21 08:21 Dose: 325 mg Documented by: [id number] Admin: 02/24/21 16:19 Dose: 325 mg Documented by: [id number] Admin: 02/24/21 07:33 Dose: 325 mg Documented by: [id number] Admin: 02/23/21 18:22 Dose: 325 mg Documented by: [id number] Admin: 02/23/21 08:23 Dose: 325 mg Documented by: [id number] Admin: 02/22/21 18:00 Dose: 325 mg Documented by: [id number] Admin: 02/22/21 08:03 Dose: 325 mg Documented by: [id number] Admin: 02/21/21 18:04 Dose: 325 mg Documented by: [id number] Heparin Sodium (Porcine) (Heparin Sod 5,000 Unit/0.5 Ml Vial) 5,000 units SQ Q12 MARK Stop: 03/26/21 10:54 Last Admin: 02/26/21 09:37 Dose: 5,000 units Documented by: [id number] Admin: 02/25/21 20:39 Dose: 5,000 units Documented by: [id number] Admin: 02/25/21 08:21 Dose: 5,000 units Documented by: [id number] Admin: 02/24/21 20:22 Dose: 5,000 units Documented by: [id number] Admin: 02/24/21 12:04 Dose: 5,000 units Documented by: [id number] Ertapenem 500 mg/ Sodium (Chloride) 55 mls @ 100 mls/hr IV Q24H MARK; Protocol Stop: 02/27/21 13:59 Last Infusion: 02/25/21 14:25 Dose: 0 mls/hr Documented by: [id number] Admin: 02/25/21 13:47 Dose: 100 mls/hr Documented by: [id number] Infusion: 02/24/21 14:23 Dose: 0 mls/hr Documented by: [id number] Admin: 02/24/21 13:50 Dose: 100 mls/hr Documented by: [id number] Infusion: 02/23/21 15:05 Dose: 0 mls/hr Documented by: [id number] Admin: 02/23/21 14:23 Dose: 100 mls/hr Documented by: [id number] Infusion: 02/22/21 14:54 Dose: 0 mls/hr Documented by: [id number] Admin: 02/22/21 14:20 Dose: 100 mls/hr Documented by: [id number] Insulin Aspart (Insulin Aspart 100 Units/Ml 3 Ml Pen) 0 units SC ACHS MARK Stop: 03/23/21 16:37 Last Admin: 02/23/21 16:24 Dose: Not Given Documented by: [id number] Admin: 02/23/21 12:33 Dose: Not Given Documented by: [id number] Admin: 02/23/21 08:21 Dose: Not Given Documented by: [id number] Admin: 02/22/21 21:06 Dose: Not Given Documented by: [id number] Cosigned by: [id number] Admin: 02/22/21 17:51 Dose: Not Given Documented by: [id number] Admin: 02/22/21 12:32 Dose: 1 units Documented by: [id number] Cosigned by: [id number] Admin: 02/22/21 09:05 Dose: Not Given Documented by: [id number] Cosigned by: [id number] Admin: 02/21/21 23:20 Dose: 1 units Documented by: [id number] Cosigned by: [id number] Admin: 02/21/21 18:03 Dose: Not Given Documented by: [id number] Cosigned by: [id number] Insulin Glargine (Insulin Glargine Solostar 100 Units/Ml 3 Ml Pen) 6 units SC DAILY MARK Stop: 03/24/21 08:59 Last Admin: 02/22/21 09:05 Dose: Not Given Documented by: [id number] Labetalol HCl (Labetalol Hcl Iv 5 Mg/Ml 20ml) 10 mg IV Q4H PRN PRN Reason: SBP >180 Stop: 03/23/21 19:35 Last Admin: 02/25/21 09:13 Dose: 10 mg Documented by: [id number] Cosigned by: [id number] Admin: 02/24/21 18:16 Dose: 10 mg Documented by: [id number] Cosigned by: [id number] Admin: 02/23/21 08:18 Dose: 10 mg Documented by: [id number] Cosigned by: [id number] Admin: 02/22/21 12:31 Dose: 10 mg Documented by: [id number] Cosigned by: [id number] Admin: 02/22/21 07:52 Dose: 10 mg Documented by: [id number] Cosigned by: [id number] Admin: 02/21/21 20:15 Dose: 10 mg Documented by: [id number] Cosigned by: [id number] Levothyroxine Sodium (Levothyroxine Sodium 75 Mcg Tablet) 75 mcg PO MoWeFr [facility] Stop: 03/26/21 06:29 Last Admin: 02/26/21 05:57 Dose: Not Given Documented by: [id number] Admin: 02/24/21 05:41 Dose: 75 mcg Documented by: [id number] Levothyroxine Sodium (Levothyroxine Sodium 50 Mcg Tablet) 50 mcg PO [email or web address] [facility] Stop: 03/27/21 06:29 Last Admin: 02/25/21 07:25 Dose: 50 mcg Documented by: [id number] Mirtazapine (Mirtazapine Tab 15 Mg Tab) 15 mg PO HS [facility] Stop: 03/23/21 20:59 Last Admin: 02/25/21 20:40 Dose: 15 mg Documented by: [id number] Admin: 02/24/21 20:22 Dose: 15 mg Documented by: [id number] Admin: 02/23/21 21:21 Dose: 15 mg Documented by: [id number] Admin: 02/22/21 21:03 Dose: 15 mg Documented by: [id number] Admin: 02/21/21 20:39 Dose: 15 mg Documented by: [id number] Ondansetron HCl (Ondansetron Inj 2 Mg/Ml 2 Ml Vial) 4 mg IV Q6H PRN PRN Reason: Nausea Stop: 03/23/21 16:37 Last Admin: 02/25/21 08:36 Dose: 4 mg Documented by: [id number] Pantoprazole Sodium (Pantoprazole 40 Mg Tab) 40 mg PO BID [facility] Stop: 03/23/21 20:59 Last Admin: 02/26/21 09:30 Dose: 40 mg Documented by: [id number] Admin: 02/25/21 21:33 Dose: 40 mg Documented by: [id number] Admin: 02/25/21 08:21 Dose: 40 mg Documented by: [id number] Admin: 02/24/21 20:22 Dose: 40 mg Documented by: [id number] Admin: 02/24/21 07:33 Dose: 40 mg Documented by: [id number] Admin: 02/23/21 21:21 Dose: 40 mg Documented by: [id number] Admin: 02/23/21 08:22 Dose: 40 mg Documented by: [id number] Admin: 02/22/21 21:03 Dose: 40 mg Documented by: [id number] Admin: 02/22/21 08:02 Dose: 40 mg Documented by: [id number] Admin: 02/21/21 20:39 Dose: 40 mg Documented by: [id number] Pravastatin Sodium (Pravastatin Sod 40 Mg Tab) 40 mg PO [facility] Stop: 03/23/21 20:59 Last Admin: 02/25/21 20:42 Dose: 40 mg Documented by: [id number] Admin: 02/24/21 20:23 Dose: 40 mg Documented by: [id number] Admin: 02/23/21 21:21 Dose: 40 mg Documented by: [id number] Admin: 02/22/21 21:03 Dose: 40 mg Documented by: [id number] Admin: 02/21/21 20:39 Dose: 40 mg Documented by: [id number] Thiamine HCl (Thiamine Hcl 100 Mg Tab) 200 mg PO BID [facility] Stop: 03/26/21 10:14 Last Admin: 02/26/21 09:31 Dose: 200 mg Documented by: [id number] Admin: 02/25/21 20:42 Dose: 200 mg Documented by: [id number] Admin: 02/25/21 08:21 Dose: 200 mg Documented by: [id number] Admin: 02/24/21 20:23 Dose: 200 mg Documented by: [id number] Admin: 02/24/21 11:25 Dose: 200 mg Documented by: [id number] Vitamin D (Cholecalciferol 1,000 Units 25 Mcg Tab) 1,000 units PO [facility] Stop: 03/24/21 08:59 Last Admin: 02/26/21 09:32 Dose: 1,000 units Documented by: [id number] Admin: 02/25/21 08:21 Dose: 1,000 units Documented by: [id number] Admin: 02/24/21 07:34 Dose: 1,000 units Documented by: [id number] Admin: 02/23/21 08:22 Dose: 1,000 units Documented by: [id number] Admin: 02/22/21 08:02 Dose: 1,000 units Documented by: [id number] Discontinued Medications Acetaminophen (Acetaminophen 500 Mg Tab) Confirm Administered Dose 1,000 mg .ROUTE .STK-MED ONE Stop: 02/22/21 18:05 Last Admin: 02/22/21 18:09 Dose: 1,000 mg Documented by: [id number] Amlodipine Besylate (Amlodipine Besylate 5 Mg Tab) 2.5 mg PO NOW ONE Stop: 02/23/21 09:38 Last Admin: 02/23/21 10:31 Dose: 2.5 mg Documented by: [id number] Bupivacaine HCl (Bupivacaine 0.25% 30 Ml Vial) Confirm Administered Dose 30 ml .ROUTE .STK-MED ONE Stop: 02/21/21 14:39 Last Admin: 02/21/21 15:28 Dose: 30 ml Documented by: [id number] Clindamycin Phosphate (Clindamycin Phos 300 Mg/2 Ml Vial) Confirm Administered Dose 600 mg .ROUTE .STK-MED ONE Stop: 02/21/21 14:51 Last Admin: 02/21/21 15:28 Dose: 600 mg Documented by: [id number] Dextrose (Dextrose 50% 50 Ml Syringe) 25 ml IV NOW ONE Stop: 02/22/21 00:21 Last Admin: 02/22/21 00:30 Dose: 25 ml Documented by: [id number] Fentanyl Citrate (Fentanyl Citrate 100 Mcg/2 Ml Vial) Confirm Administered Dose 100 mcg .ROUTE .STK-MED ONE Stop: 02/21/21 14:52 Last Increment: 02/21/21 15:28 Dose: 25 mcg Documented by: [id number] Furosemide (Furosemide 40 Mg/4 Ml Vial) 20 mg IV NOW STA Stop: 02/21/21 10:46 Last Admin: 02/21/21 11:32 Dose: 20 mg Documented by: [id number] Furosemide (Furosemide 40 Mg/4 Ml Vial) 20 mg IV NOW STA Stop: 02/21/21 11:18 Last Admin: 02/21/21 12:35 Dose: 20 mg Documented by: [id number] Hydroxyzine HCl (Hydroxyzine Hcl 10 Mg Tab) 10 mg PO HS MARK Stop: 03/23/21 20:59 Last Admin: 02/22/21 21:03 Dose: 10 mg Documented by: [id number] Admin: 02/21/21 23:19 Dose: Not Given Documented by: [id number] Clindamycin Phosphate 600 mg/ (Dextrose) 54 mls @ 100 mls/hr IV Q8H MARK Stop: 02/22/21 23:29 Last Infusion: 02/22/21 17:19 Dose: 0 mls/hr Documented by: [id number] Admin: 02/22/21 16:00 Dose: 100 mls/hr Documented by: [id number] Infusion: 02/22/21 08:47 Dose: 0 mls/hr Documented by: [id number] Admin: 02/22/21 07:59 Dose: 100 mls/hr Documented by: [id number] Infusion: 02/22/21 01:50 Dose: 0 mls/hr Documented by: [id number] Admin: 02/22/21 00:13 Dose: 100 mls/hr Documented by: [id number] Dextrose (D5w) 1,000 mls @ 20 mls/hr IV .Q24H MARK Stop: 03/24/21 09:29 Last Infusion: 02/24/21 20:08 Dose: 0 mls/hr Documented by: [id number] Admin: 02/24/21 16:20 Dose: 10 mls/hr Documented by: [id number] Infusion: 02/24/21 16:20 Dose: 20 mls/hr Documented by: [id number] Admin: 02/23/21 12:28 Dose: 20 mls/hr Documented by: [id number] Infusion: 02/23/21 12:28 Dose: 20 mls/hr Documented by: [id number] Admin: 02/22/21 09:19 Dose: 20 mls/hr Documented by: [id number] Furosemide 20 mg/ Syringe 2 mls @ 4 mls/min IV 1030 MARK Stop: 02/22/21 12:00 Last Admin: 02/22/21 10:49 Dose: 4 mls/min Documented by: [id number] Furosemide 20 mg/ Syringe 2 mls @ 4 mls/min IV TODAY@1800 ONE Stop: 02/23/21 18:01 Last Admin: 02/23/21 18:22 Dose: 4 mls/min Documented by: [id number] Furosemide 20 mg/ Syringe 2 mls @ 4 mls/min IV ONE ONE Stop: 02/24/21 09:01 Last Admin: 02/24/21 09:49 Dose: 4 mls/min Documented by: [id number] Furosemide 20 mg/ Syringe 2 mls @ 4 mls/min IV ONE ONE Stop: 02/24/21 11:01 Last Admin: 02/24/21 11:25 Dose: 4 mls/min Documented by: [id number] Dextrose (D5w) 1,000 mls @ 10 mls/hr IV .Q24H MARK Stop: 03/26/21 16:29 Last Infusion: 02/25/21 15:16 Dose: 0 mls/hr Documented by: [id number] Infusion: 02/25/21 14:24 Dose: 10 mls/hr Documented by: [id number] Infusion: 02/25/21 13:50 Dose: 0 mls/hr Documented by: [id number] Admin: 02/24/21 16:34 Dose: 10 mls/hr Documented by: [id number] Levothyroxine Sodium (Levothyroxine Sodium 50 Mcg Tablet) 50 mcg PO DAILYBB [facility] Stop: 03/24/21 06:29 Last Admin: 02/23/21 06:20 Dose: 50 mcg Documented by: [id number] Admin: 02/22/21 06:23 Dose: 50 mcg Documented by: [id number] Lidocaine HCl (Lidocaine Hcl 1% 20 Ml Vial) Confirm Administered Dose 20 ml .ROUTE .STK-MED ONE Stop: 02/21/21 14:38 Last Admin: 02/21/21 15:28 Dose: 20 ml Documented by: [id number] Midazolam HCl (Midazolam Hcl 1 Mg/Ml 2ml Vial) Confirm Administered Dose 2 mg .ROUTE .STK-MED ONE Stop: 02/21/21 14:52 Last Admin: 02/21/21 15:29 Dose: 1 mg Documented by: [id number] Potassium Chloride (Potassium Chloride Crtab 20 Meq Tabcr) 20 meq PO NOW STA Stop: 02/22/21 10:02 Last Admin: 02/22/21 10:49 Dose: 20 meq Documented by: [id number] Potassium Chloride (Potassium Chloride Crtab 20 Meq Tabcr) 20 meq PO BID [facility] Stop: 03/26/21 08:59 Last Admin: 02/26/21 09:30 Dose: 20 meq Documented by: [id number] Admin: 02/25/21 20:40 Dose: 20 meq Documented by: [id number] Admin: 02/25/21 08:21 Dose: 20 meq Documented by: [id number] Admin: 02/24/21 20:23 Dose: 20 meq Documented by: [id number] Admin: 02/24/21 09:49 Dose: 20 meq Documented by: [id number] Prednisone (Prednisone 20 Mg Tab) 20 mg PO NOW STA Stop: 02/25/21 15:13 Last Admin: 02/25/21 15:43 Dose: 20 mg Documented by: [id number] Sterile Water (Water, Sterile For Inj 10 Ml Vial) Confirm Administered Dose 10 ml .ROUTE .STK-MED ONE Stop: 02/21/21 14:39 Last Admin: 02/21/21 17:21 Dose: Not Given Documented by: [id number] Vancomycin HCl (Vancomycin Hcl 1000mg/20ml Vial) Confirm Administered Dose 50 mg .ROUTE .STK-MED ONE Stop: 02/21/21 14:39 Last Admin: 02/21/21 17:21 Dose: Not Given Documented by: [id number] Medical Decision Making Differential Diagnosis Infection, dehydration, metabolic abnormality, hypo/hyperglycemia, electrolyte disturbance, anemia, hypoxia, cardiac sources, intracerebral event, toxicologic, neurologic, as well as other pathologies. Medical Records Attestation: I reviewed the patient's medical records. Home Medications Current Medication List: was personally reviewed by me Laboratory Data Attestation: I reviewed the patient's lab results. Result diagrams: 02/26/21 08:53 02/26/21 08:53 Lab Results 02/21/21 02/21/21 02/21/21 Range/Units 09:09 09:09 09:09 WBC 8.95 (4.8-10.8) K/uL RBC 3.86 L (4.2-5.4) M/uL Hgb 10.8 L (12.0-16.0) g/dL POC Hgb (12.0-16.0) g/dl Hct 33.7 L (37-47) % POC Hct (37-47) % MCV 87.3 (80-100) fL MCH 28.0 (25-34) pg MCHC 32.0 (32-36) g/dL RDW Std Deviation 44.6 (36.4-46.3) fL RDW Coeff of Otis 14.0 (11.5-14.5) % Plt Count 267 (130-400) K/uL MPV 9.9 (7.4-10.4) fL Immature Gran % (Auto) 0.2 % Neut % (Auto) 76.5 % Lymph % (Auto) 13.0 % [place] % (Auto) 8.8 % Eos % (Auto) 0.9 % Baso % (Auto) 0.6 % Neut # (Auto) 6.85 H (1.4-6.5) K/uL Lymph # (Auto) 1.16 L (1.2-3.4) K/uL [place] # (Auto) 0.79 H (0.11-0.59) K/uL Eos # (Auto) 0.08 (0-0.5) K/uL Baso # (Auto) 0.05 (0-0.2) K/uL Immature Gran # (Auto) 0.02 (0.00-0.02) K/uL PT 11.0 (9.0-12.0) Seconds INR 1.1 (0.9-1.1) APTT 21.5 (21.0-31.0) Seconds PTT Ratio 0.8 POC Sodium (135-144) mmol/L Sodium 141 (136-145) mmol/L POC Potassium (3.3-5.0) mmol/L Potassium 4.1 (3.5-5.1) mmol/L POC Chloride (101-112) mmol/L Chloride 110 H (98-107) mmol/L Carbon Dioxide 22 (21-32) mmol/L POC Total CO2 (24-31) mmol/L Anion Gap 9.0 (3-11) POC Anion Gap (16-25) mmol/L POC BUN (7-18) mg/dl BUN 39 H (7-18) mg/dl Creatinine 1.63 H (0.6-1.2) mg/dl POC Creatinine (0.6-1.3) mg/dl Est Cr Clr Drug Dosing 17.7 ml/min Est GFR ( Amer) 32.3 ml/min Est GFR (Non-Af Amer) 27.8 ml/min BUN/Creatinine Ratio 24.1 H (10-20) Glucose 138 H (70-99) mg/dl POC Glucose (other) (70-99) mg/dl Calcium 9.0 (8.5-10.1) mg/dl POC Ioniz Calcium Sonia (1.12-1.32) mmol/l Phosphorus 4.0 (2.5-4.9) mg/dl Magnesium 2.1 (1.8-2.4) mg/dl Total Bilirubin 0.7 (0.2-1) mg/dl AST 15 (15-37) U/L ALT 9 L (12-78) U/L Alkaline Phosphatase 60 (45-117) U/L Troponin I < 0.015 (0-0.045) ng/ml NT-Pro-B Natriuret Pep 7661 H (0-1800) pg/ml Total Protein 8.3 H (6.4-8.2) gm/dl Albumin 3.0 L (3.4-5.0) gm/dl Globulin 5.3 H (2.5-4.0) gm/dl Albumin/Globulin Ratio 0.6 L (0.9-2) Lipase 127 (73-393) U/L TSH 6.040 H (0.300-4.500) uIu/ml Free T4 1.51 (0.8-1.6) ng/dl COVID-19 Eval Order SARS-CoV-2 (PCR) (Negative) 02/21/21 02/21/21 02/21/21 Range/Units 09:10 09:10 09:18 WBC (4.8-10.8) K/uL RBC (4.2-5.4) M/uL Hgb (12.0-16.0) g/dL POC Hgb 11.6 L (12.0-16.0) g/dl Hct (37-47) % POC Hct 34 L (37-47) % MCV (80-100) fL MCH (25-34) pg MCHC (32-36) g/dL RDW Std Deviation (36.4-46.3) fL RDW Coeff of Otis (11.5-14.5) % Plt Count (130-400) K/uL MPV (7.4-10.4) fL Immature Gran % (Auto) % Neut % (Auto) % Lymph % (Auto) % [place] % (Auto) % Eos % (Auto) % Baso % (Auto) % Neut # (Auto) (1.4-6.5) K/uL Lymph # (Auto) (1.2-3.4) K/uL [place] # (Auto) (0.11-0.59) K/uL Eos # (Auto) (0-0.5) K/uL Baso # (Auto) (0-0.2) K/uL Immature Gran # (Auto) (0.00-0.02) K/uL PT (9.0-12.0) Seconds INR (0.9-1.1) APTT (21.0-31.0) Seconds PTT Ratio POC Sodium 142 (135-144) mmol/L Sodium (136-145) mmol/L POC Potassium 4.2 (3.3-5.0) mmol/L Potassium (3.5-5.1) mmol/L POC Chloride 109 (101-112) mmol/L Chloride (98-107) mmol/L Carbon Dioxide (21-32) mmol/L POC Total CO2 23 L (24-31) mmol/L Anion Gap (3-11) POC Anion Gap 15.0 L (16-25) mmol/L POC BUN 36 H (7-18) mg/dl BUN (7-18) mg/dl Creatinine (0.6-1.2) mg/dl POC Creatinine 1.9 H (0.6-1.3) mg/dl Est Cr Clr Drug Dosing ml/min Est GFR ( Amer) ml/min Est GFR (Non-Af Amer) ml/min BUN/Creatinine Ratio (10-20) Glucose (70-99) mg/dl POC Glucose (other) 140 H (70-99) mg/dl Calcium (8.5-10.1) mg/dl POC Ioniz Calcium Sonia 1.18 (1.12-1.32) mmol/l Phosphorus (2.5-4.9) mg/dl Magnesium (1.8-2.4) mg/dl Total Bilirubin (0.2-1) mg/dl AST (15-37) U/L ALT (12-78) U/L Alkaline Phosphatase (45-117) U/L Troponin I (0-0.045) ng/ml NT-Pro-B Natriuret Pep (0-1800) pg/ml Total Protein (6.4-8.2) gm/dl Albumin (3.4-5.0) gm/dl Globulin (2.5-4.0) gm/dl Albumin/Globulin Ratio (0.9-2) Lipase (73-393) U/L TSH (0.300-4.500) uIu/ml Free T4 (0.8-1.6) ng/dl COVID-19 Eval Order Covid19 at [facility] SARS-CoV-2 (PCR) NEGATIVE (Negative) Imaging Data Radiologist's Impression: Chest X-Ray 02/21/21 08:53 XR chest 1V portable CLINICAL HISTORY: Atypical chest pain COMPARISON STUDY: 02/18/2016 FINDINGS: The cardiac and mediastinal contours remain stable. The heart is normal in size. There is aortic tortuosity/ectasia. There is diffuse elevation of interstitium likely secondary to congestive failure/fluid overload. There are small pleural effusions. There is an old proximal left humeral fracture.[ IMPRESSION: 1. Radiographic findings consistent with mild congestive failure/fluid overload with small bilateral pleural effusions ACT 112: Negative or not required by law. Electronically signed by: Cristo Hudson M.D. 02/21/2021 9:54 AM ECG Data Attestation: I personally reviewed and interpreted this ECG as follows: Indication: + bradycardia Rate (beats per minute): 47 Rhythm: + AV dissociation and + junctional ECG Intervals/blocks: + Complete heart block ECG ST segments: + Nonspecific ST abnormalities and + repolarization abnormalities ECG Findings: + PVCs Comparison ECG Date: from (11/08/19) Change: the following changes noted (Third degree heart block is new) Blood Pressure Blood Pressure Findings: Elevated blood pressure Blood Pressure Disposition: further management by hospitalist MDM Narrative This pt was evaluated and appeared to be in no distress. IV access was obtained and lab work was drawn. An order for cardiac monitoring was placed and pt was noted to be in a third degree heart block at 35 bpm. BP remained stable. EKG confirms the AV dissociation. Med list was reviewed and no rate controlling medications are noted. Electrolytes were stable. Pt was given 20 mg IV lasix for congestive changes on CXR. Case was d/w the hospitalist and Dr. Narayanan of cardiology for further management. Pt and son are aware of the plan, likely pacemaker, and agree. Impression & Plan Third degree atrioventricular block Discharge Plan Visit Data Patient Disposition: Admitted As Inpatient Discharge Instructions Interventions: ED Discharge Assessment Last Done: 02/21/21 14:15 Resident Activity Tracking Resident Involvement: Resident Care Provided Care Provided: Adult Hospital Medicine
[2021-02-21 09:22] LABS: Basophils # (auto) 0.05 K/uL (0-0.2); Basophils % (auto) 0.6 %; Eosinophils # (auto) 0.08 K/uL (0-0.5); Eosinophils % (auto) 0.9 %; Hematocrit (blood only) 33.7 % (37-47); Hemoglobin 10.8 g/dL (12.0-16.0); Immature Granulocytes # (auto) 0.02 K/uL (0.00-0.02); Immature Granulocytes % (auto) 0.2 %; Lymphocytes # (auto) 1.16 K/uL (1.2-3.4); Mean Corpuscular Volume 87.3 fL (80-100); Mean Platelet Volume 9.9 fL (7.4-10.4); Monocytes # (auto) 0.79 K/uL (0.11-0.59); Monocytes % (auto) 8.8 %; Neutrophils # (auto) 6.85 K/uL (1.4-6.5); Neutrophils % (auto) 76.5 %; Platelet Count 267 K/uL (130-400); RDW Standard Deviation 44.6 fL (36.4-46.3); Red Blood Count 3.86 M/uL (4.2-5.4); White Blood Count 8.95 K/uL (4.8-10.8)
[2021-02-21 09:32] LABS: iSTAT Creatinine 1.9 mg/dl (0.6-1.3); iSTAT Hemoglobin 11.6 g/dl (12.0-16.0); iSTAT Ionized Calcium 1.18 mmol/l (1.12-1.32); iSTAT Potassium 4.2 mmol/L (3.3-5.0)
[2021-02-21 09:35] LABS: INR 1.1 (0.9-1.1); Partial Thromboplastin Ratio 0.8; Partial Thromboplastin Time 21.5 Seconds (21.0-31.0)
[2021-02-21 09:42] LABS: Alanine Aminotransferase 9 U/L (12-78); Aspartate Aminotransferase 15 U/L (15-37); BUN Creatinine Ratio 24.1 (10-20); Blood Urea Nitrogen 39 mg/dl (7-18); Carbon Dioxide 22 mmol/L (21-32); Chloride 110 mmol/L (98-107); Creatinine Clr Calc Pharmacy 17.7 ml/min; Est GFR (African American) 32.3 ml/min; Est GFR (Non-African American) 27.8 ml/min; Glucose 138 mg/dl (70-99); Lipase 127 U/L (73-393); Magnesium 2.1 mg/dl (1.8-2.4); Potassium 4.1 mmol/L (3.5-5.1); Sodium 141 mmol/L (136-145)
[2021-02-21 09:53] LABS: Albumin Globulin Ratio 0.6 (0.9-2); Alkaline Phosphatase 60 U/L (45-117); Bilirubin,Total 0.7 mg/dl (0.2-1); Globulin 5.3 gm/dl (2.5-4.0); NT Pro B Type Natriuretic Pept 7661 pg/ml (0-1800); Total Protein 8.3 gm/dl (6.4-8.2); Troponin I < 0.015 ng/ml (0-0.045)
--- NOTE | 2021-02-21 09:56 | XRay Report ---
XR chest 1V portable CLINICAL HISTORY: Atypical chest pain COMPARISON STUDY: 02/18/2016 FINDINGS: The cardiac and mediastinal contours remain stable. The heart is normal in size. There is a ortic tortuosity/ectasia. There is diffuse elevation of interstitium likely secondary to congestive f ailure/fluid overload. There are small pleural effusions. There is an old proximal left humeral fract ure.[ IMPRESSION: 1. Radiographic findings consistent with mild congestive failure/fluid overload with small bilateral pleural effusions ACT 112: Negative or not required by law. Electronically signed by: Cristo Hudson M.D. 02/21/2021 9:54 AM
[2021-02-21 10:05] LABS: T4 Free Thyroxine 1.51 ng/dl (0.8-1.6)
[2021-02-21] MEDS ORDERED: FUROSEMIDE 40 MG/4 ML VIAL IV STA ×2 (10:45→11:17)
--- NOTE | 2021-02-21 11:37 | History & Physical Report ---
Date of Service February 21, 2021 Assessment & Plan (1) Complete heart block: Patient seems to be hemodynamically stable at this point. Okay to admit to PCU Cardiology consulted stat by ER Patient is on oral amlodipine which will help. She is on no other cardiac meds Suspect patient will require emergent pacemaker placement, await cardiology evaluation Patient has some fluid overload/CHF, likely secondary to severe bradycardia. Lasix 20 mg x 1 given, will await response and repeat as needed. Continue O2 support Of note, patient is a previous DNR/DNI but expressed to the ER physician that she would like to be a full code. Will order appropriately. Will need DVT prophylaxis, will order SCDs only for now pending possible OR (2) ARF (acute renal failure): Baseline creatinine is around 1.1, it is elevated to 1.63 today Likely secondary to above fluid retention as noted above. Await diuresis response with Lasix, continue to follow electrolytes and redose as needed (3) Diabetes mellitus: Patient is on insulin, will give half dose of glargine insulin along with sliding scale is we will keep patient n.p.o. for potential OR Hold oral hypoglycemics for now Can increase doses to her outpatient baseline depending on hospital course (4) Hyperlipidemia: Pravastatin 40 mg daily (5) HTN (hypertension): Secondary to the above. Will hold amlodipine for now. Monitor after dosing of Lasix History of Present Illness Chief Complaint: Shortness of breath Primary Care Provider: [facility] This is an 89-year-old female past medical history of hypertension, hypothyroid ism, previous fall with humeral fracture, first-degree block that presents today with shortness of breath. Patient is a somewhat limited historian and she has a mild degree of dementia. Son is at bedside. Patient is a resident of [facility]. Patient tells us that she has had some generalized weakness shortness of breath over the past several days. She is unclear of how long this is lasted but does feel that it is getting worse. Denies any fevers, chills, cough, nausea, vomiting, or other systemic symptoms. EMS was called and the patient was found to bradycardic in the 30-40 range in route. In the emergency room, she remains very bradycardic and was found to be in complete heart block. Blood pressure is elevated with systolic in the 180s. O2 sat was low of blood patient responded well to nasal cannula oxygen her sat is 94% on 3 L. ER physician is already called cardiology considering her persistent complete heart block. Patient does appear to be in mild CHF and Lasix 20 mg IV x1 was about to be given by nursing. Patient does not appear to be in any cardiopulmonary distress and denies any palpitations or chest pain at this time. Allergies Allergy/AdvReac Type Severity Reaction Status Date / Time amoxicillin Allergy Intermediate RASH Verified 02/21/21 09:42 cephalexin Allergy Intermediate RASH Verified 02/21/21 09:42 Home Medications Medication Instructions Recorded Confirmed Type blood sugar diagnostic #100 ea 05/12/19 06/27/19 Rx amlodipine 2.5 mg tablet 2.5 mg PO QAM #90 tab 06/22/19 02/21/21 History blood sugar diagnostic #10 ea 06/22/19 06/22/19 History escitalopram oxalate 10 mg tablet 10 mg PO QAM #90 tab 06/22/19 02/21/21 History ferrous sulfate 325 mg (65 mg 325 mg PO BIDM tab 06/22/19 02/21/21 History iron) tablet lancets 33 gauge #100 ea 06/22/19 06/22/19 History linagliptin 5 mg tablet 5 mg PO QAM #30 tab 06/22/19 02/21/21 History hydroxyzine HCl 10 mg PO HS 11/08/19 02/21/21 History carboxymethylcellulose sodium 2 drp OPB QID 02/21/21 02/21/21 History [Refresh] cholecalciferol (vitamin D3) 25 mcg PO QAM 02/21/21 02/21/21 History [Vitamin D3] insulin aspart U-100 [Novolog 0 sliding scale dose SUBCUT UD 02/21/21 02/21/21 History U-100 Insulin aspart] insulin glargine [Lantus U-100 15 unit SUBCUT DAILY 02/21/21 02/21/21 History Insulin] ipratropium-albuterol 3 ml INHALATION .ONCE PRN 02/21/21 02/21/21 History levothyroxine 50 mcg PO DAILYBB 02/21/21 02/21/21 History mirtazapine 15 mg PO HS 02/21/21 02/21/21 History omeprazole 20 mg PO BID 02/21/21 02/21/21 History pravastatin 40 mg PO HS 02/21/21 02/21/21 History Past Med/Surg History Medical History (Updated 02/21/21 @ 11:43 by Geovanni Palacio DO) Diabetes mellitus Gait abnormality HTN (hypertension) Hypothyroidism Kidney stones MCI (mild cognitive impairment) Vitamin B12 deficiency (dietary) anemia Vitamin D deficiency Surgical History H/O colonoscopy History of back surgery tail bone History of bladder surgery History of cataract surgery History of oral surgery S/P appendectomy S/P hysterectomy Family History Mother Diabetes Hypertension Brother Diabetes Sister Breast cancer Social History Smoking Status: Never smoker Hx Alcohol Use: No Hx Substance Use: No Preferred Language: Scottish Communication Ability: Effective Visual Impairment: Diminished Planer Chain 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 Required: No Beliefs That Will Affect Care: None marital status: / Current Living Situation: Alone current occupational status: retired Feels Safe at Home: Yes caffeine: Yes Seatbelt Use: always Assistive Devices: Cane Review of Systems Constitutional: + weakness; no fever, no chills, no weight loss and no weight gain Eyes: as per Subjective / HPI Respiratory: + dyspnea and + dyspnea on exertion; no cough, no chest congestion, no hemoptysis, no pain on inspiration and no wheezing Cardiovascular: no chest pain, no orthopnea, no palpitations, no lightheadedness and no edema Gastrointestinal: no abdominal pain, no nausea, no vomiting, no constipation and no diarrhea/loose stools Genitourinary: no dysuria, no difficulty urinating, no urinary frequency, no urinary hesitancy, no urinary urgency and no flank pain Musculoskeletal: no back pain, no neck pain, no joint pain, no stiffness and no myalgia Integumentary: no rash Neurologic: no gait abnormality, no unsteadiness, no falls and no generalized weakness Physical Exam Constitutional: cooperative and comfortable; no acute distress Neck: trachea midline, no thyromegaly Neck is thick, no JVD noted Respiratory: normal respiratory effort Auscultation: lungs clear to auscultation bilaterally and + rales; no crackles, no rhonchi and no wheezes Cardiovascular: Rate/Rhythm: + bradycardic and + irregularly irregular Heart Sounds: normal S1 and normal S2; no murmur Extremities: no edema Gastrointestinal (Abdomen): Inspection/Auscultation: abdomen normal to inspection Percussion/Palpation: abdomen soft; abdomen nontender, no guarding, abdomen not rigid and no hepatosplenomegaly Skin: no rashes, warm and dry Neurologic: PERRL, EOMI, accommodation nl, no face palsy, no dysarthria Psychiatric: A+Ox3, euthymic affect Results & Data Results & Data ([facility]) Vital Signs (Past 12 Hours) Vital Signs Temp Pulse Resp BP Pulse Ox 02/21/21 10:30 35 L 10 L 97 02/21/21 10:00 36 L 18 94 02/21/21 09:30 35 L 13 93 02/21/21 09:00 37 L 12 92 02/21/21 08:53 88 L 02/21/21 08:45 36.7 C 36 L 9 L 180/50 H 88 L PG Care Time/CCT Total # of Minutes Spent Total Time Spent with Patient: Total time spent is greater than 50% in coordinat ion of care (as documented) at patient's floor/unit and/or counseling patient: Coding Level of Care Code 35518 Initial Inpt Care Lvl 3 Diagnoses Complete heart block I44.2 ARF (acute renal failure) N17.9 Diabetes mellitus E11.9 Diabetes mellitus type: type 2 Diabetes mellitus termite exterminator 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
--- NOTE | 2021-02-21 13:59 | Cardiology Consultation ---
Date of Consultation February 21, 2021 Assessment & Plan (1) Complete heart block: -likely developed concurrent with her symptoms 2-3 days ago. -no need for temporary wire as patient is mentating and hemodynamically stable. -echocardiogram notes normal left ventricular systolic function. -case discussed with Dr. Campos. -proceed with permanent pacemaker later today. (2) CHF (congestive heart failure): -mild decompensation noted at time of presentation. -agree with intravenous Lasix. (3) HTN (hypertension): -would add an additional agent such as doxazosin. (4) Hyperlipidemia: -continue pravastatin. History of Present Illness History of Present Illness Mrs. Young is an 89-year-old female admitted earlier today with mild CHF and complete heart block. This consultation was ordered to assist in her cardiac management. Of note, the patient has never seen a director of patient financial services previously. The patient was in her usual state of health until 2-3 days prior to presentation. At that time, she began to note significant shortness of breath with minimal exertion. She does not experience PND or orthopnea. She was noted to have a low heart rate and therefore, was sent to the emergency room for further care. On arrival here, patient was noted to be in complete heart block with an escape rhythm at approximately 40 beats per minute. She was mentating normally and had a systolic blood pressure of 100 mmHg. I was contacted directly by the emergency room physician. The patient carries a longstanding history of hypertension and first-degree AV block. The patient has been a resident at [facility] for approximately 14 months. Past medical and surgical history 1. Hypertension 2. Hypercholesterolemia 3. First-degree AV block 4. GERD 5. Diabetes mellitus 6. Hypothyroidism 7. Nephrolithiasis 8. Mild cognitive impairment 9. Vitamin B12 deficiency 10. Vitamin-D deficiency 11. Bilateral intra-ocular lens implants 12. Appendectomy 13. Hysterectomy Social history The patient is a . Resident at [facility]. No tobacco alcohol. Family history Noncontributory Review of systems A 10 review systems was negative except that described above. Allergies Allergy/AdvReac Type Severity Reaction Status Date / Time amoxicillin Allergy Intermediate RASH Verified 02/21/21 09:42 cephalexin Allergy Intermediate RASH Verified 02/21/21 09:42 Home Medications Medication Instructions Recorded Confirmed Type blood sugar diagnostic #100 ea 05/12/19 06/27/19 Rx amlodipine 2.5 mg tablet 2.5 mg PO QAM #90 tab 06/22/19 02/21/21 History blood sugar diagnostic #10 ea 06/22/19 06/22/19 History escitalopram oxalate 10 mg tablet 10 mg PO QAM #90 tab 06/22/19 02/21/21 History ferrous sulfate 325 mg (65 mg 325 mg PO BIDM tab 06/22/19 02/21/21 History iron) tablet lancets 33 gauge #100 ea 06/22/19 06/22/19 History linagliptin 5 mg tablet 5 mg PO QAM #30 tab 06/22/19 02/21/21 History hydroxyzine HCl 10 mg PO HS 11/08/19 02/21/21 History carboxymethylcellulose sodium 2 drp OPB QID 02/21/21 02/21/21 History [Refresh] cholecalciferol (vitamin D3) 25 mcg PO QAM 02/21/21 02/21/21 History [Vitamin D3] insulin aspart U-100 [Novolog 0 sliding scale dose SUBCUT UD 02/21/21 02/21/21 History U-100 Insulin aspart] insulin glargine [Lantus U-100 15 unit SUBCUT DAILY 02/21/21 02/21/21 History Insulin] ipratropium-albuterol 3 ml INHALATION .ONCE PRN 02/21/21 02/21/21 History levothyroxine 50 mcg PO DAILYBB 02/21/21 02/21/21 History mirtazapine 15 mg PO HS 02/21/21 02/21/21 History omeprazole 20 mg PO BID 02/21/21 02/21/21 History pravastatin 40 mg PO HS 02/21/21 02/21/21 History Patient History Medical History (Updated 02/21/21 @ 11:43 by Geovanni Palacio DO) Diabetes mellitus Gait abnormality HTN (hypertension) Hypothyroidism Kidney stones MCI (mild cognitive impairment) Vitamin B12 deficiency (dietary) anemia Vitamin D deficiency Surgical History H/O colonoscopy History of back surgery tail bone History of bladder surgery History of cataract surgery History of oral surgery S/P appendectomy S/P hysterectomy Family History Mother Diabetes Hypertension Brother Diabetes Sister Breast cancer Social History Smoking Status: Never smoker Hx Alcohol Use: No Hx Substance Use: No Preferred Language: [place] Communication Ability: Effective Visual Impairment: Diminished Retail Sales Lead Required: No Beliefs That Will Affect Care: None marital status: / Current Living Situation: Alone current occupational status: retired Feels Safe at Home: Yes caffeine: Yes Seatbelt Use: always Assistive Devices: Cane Physical Exam Physical Exam: In general is well-developed well-nourished white female no acute distress. HEENT exam is negative. Neck is supple with full carotid upstrokes. No obvious bruits. Jugular is pressure is flat at 90. There is no thyromegaly. Cardiovascular exam reveals an irregular rhythm with distant heart sounds. A 2/6 systolic murmurs heard along the left sternal border. Lungs are clear without rales, rhonchi or wheezes. Abdomen is soft without bruits. Extremities reveal intact radial artery pulses bilaterally. There is no peripheral edema. Results & Data ([facility]) Vital Signs (Past 12 Hours) Vital Signs Temp Pulse Pulse Resp BP BP Pulse Ox 02/21/21 13:31 36 L 17 197/65 H 92 02/21/21 13:00 40 L 16 202/174 H 91 02/21/21 12:39 36 L 18 200/56 H 94 02/21/21 12:30 36 L 20 94 02/21/21 12:00 36 L 23 95 02/21/21 11:30 35 L 15 94 02/21/21 11:00 36 L 35 L 22 170/60 H 94 02/21/21 10:30 35 L 10 L 97 02/21/21 10:00 36 L 18 94 02/21/21 09:30 35 L 13 93 02/21/21 09:00 37 L 12 92 02/21/21 08:53 88 L 02/21/21 08:45 36.7 C 36 L 9 L 180/50 H 88 L Laboratory Results CBC notes hemoglobin of 10.8, crit 11.6, white count 8.95, and platelet count [id number]. Electrolytes note a sodium of 142, potassium 4.2, chloride 109, bicarb 23, BUN 36, creatinine 1.9, glucose of 140. Troponin I levels less than 0.015. BNP is 7661. TSH is 6.04. Diagnostic Findings EKG notes sinus rhythm with intermittent complete heart block. There is evidence of junctional escape at approximately 40 beats per minute. Chest x-ray notes cardiomegaly and mild CHF. PG Care Time/CCT Total # of Minutes Spent Total Time Spent with Patient: Total time spent is greater than 50% in coordination of care (as documented) at patient's floor/unit and/or counseling patient: Coding Level of Care Code 76232 Initial Inpt Care Lvl 3 Diagnoses Complete heart block I44.2 CHF (congestive heart failure) I50.9 HTN (hypertension) I10 Hypertension type: essential hypertension Hyperlipidemia E78.5 (1) HTN (hypertension) Hypertension type: essential hypertension Qualified Code(s): I10 - Essential (primary) hypertension
[2021-02-21] MEDS ORDERED: LIDOCAINE 1% LOCAL 20 ML VIAL ONE (14:37)
[2021-02-21] MEDS ORDERED: VANCOMYCIN HCL 1000MG/20ML VIAL ONE (14:38)
[2021-02-21] MEDS ORDERED: BUPIVACAINE 0.25% 30 ML VIAL ONE (14:38)
[2021-02-21] MEDS ORDERED: WATER, STERILE FOR INJ 10 ML VIAL ONE (14:38)
[2021-02-21] MEDS ORDERED: CLINDAMYCIN PHOS 300 MG/2 ML VIAL ONE (14:50)
[2021-02-21] MEDS ORDERED: MIDAZOLAM HCL 1 MG/ML 2ML VIAL ONE (14:51)
[2021-02-21] MEDS ORDERED: fentaNYL citrate 100 MCG/2 ML VIAL ONE (14:51)
--- NOTE | 2021-02-21 14:53 | Pre Anesthesia Assessment ---
Date of Service February 21, 2021 Pre Sedation Assessment Vital Signs Temp Pulse Pulse Resp BP BP Pulse Ox 02/21/21 14:30 43 L 16 191/109 H 93 02/21/21 14:01 42 L 20 187/74 H 97 02/21/21 13:31 36 L 17 197/65 H 92 02/21/21 13:00 40 L 16 202/174 H 91 02/21/21 12:39 36 L 18 200/56 H 94 02/21/21 12:30 36 L 20 94 02/21/21 12:00 36 L 23 95 02/21/21 11:30 35 L 15 94 02/21/21 11:00 36 L 35 L 22 170/60 H 94 02/21/21 10:30 35 L 10 L 97 02/21/21 10:00 36 L 18 94 02/21/21 09:30 35 L 13 93 02/21/21 09:00 37 L 12 92 02/21/21 08:53 88 L 02/21/21 08:45 36.7 C 36 L 9 L 180/50 H 88 L Cardiovascular + bradycardic Respiratory + respiratory effort normal Pre-Sedation Airway Assessment Smoking Status: Never smoker Hx Sleep Apnea: No Hx Difficult Intubation: No Short, Thick Neck: No Thyromental Distance: > or= 3.5 Finger Breadths Oral Cavity: + WNL Mallampati Class: III ASA: ASA3 NPO Status Date of Last Intake of Fluids: 02/20/21 Date of Last Intake of Solid Food: 02/20/21 Procedure Planning Contraindications for Sedation: none Current Medications Reviewed: Yes Notes The planned sedation has been discussed with the patient. Informed Consent was obtained. I have identified the patient, determined the appropriateness of sedation and have assessed the patient immediately prior to the procedure. All medicine(s) and interventions are by my order.
--- NOTE | 2021-02-21 14:54 | XCELERA ---
[id number]
--- NOTE | 2021-02-21 15:44 | Electrophysiology Report ---
Date of Service February 21, 2021 Electrophysiology Procedure Electrophysiology Procedure Report Procedure performed: Implantation of dual-chamber permanent pacemaker Staff multi site leasing consultant: Mansoor Campos MD Indication: The patient is an 89-year-old woman with a history of first-degree AV block who presented with worsening dyspnea and bradycardia. She was discovered to have complete heart block. She was felt to be a good candidate for permanent pacemaker due to symptomatic nonreversible AV node dysfunction. A dual-chamber device was selected as she is currently in sinus rhythm and wished to maintain AV synchrony. Procedure in detail: The patient was informed of the risks benefits and alternatives to the intended procedure and she wished to proceed. She was taken to the electrophysiology suite in a fasting state. A preoperative antibiotic had been administered. The patient was monitored electrocardiographically throughout today's procedure and conscious sedation was administered per protocol. The left upper pectoral area is prepped and draped in usual sterile fashion. This area was anesthetized using subcutaneous administration of a xylocaine solution. An incision was made at this site and carried down to the prepectoralis fascia using sharp dissection. Electrocautery was also employed for dissection as well as for hemostasis. A device pocket was fashioned tissues above the pectoralis muscle. Subsequent to this maneuver the left axillary vein was accessed using modified Seldinger technique. Sheaths were placed over guidewires at this site and used to facilitate passage of the pacing leads to the respective chambers under fluoroscopic guidance. This included right atrial and right ventricular leads. Adequate sensing and threshold parameters were obtained prior to Active fixation of the leads to the endocardial surface. The proximal portion leads were then sutured the prepectoral fascia using nonabsorbable suture. The device pocket was irrigated with antibiotic solution. The leads were then attached to the device. The device and leads were then placed in the pocket and pocket was closed in 3 layers of absorbable suture. Steri-Strips and sterile dressing were applied. The device was tested noninvasively prior to conclusion the procedure. The patient tolerated procedure well there no immediate complications. Equipment used: New pulse generator: [employer]. Model number: [id number] serial number [id number] Right atrial lead: [employer]. Model number: 5076 serial number [id number] Right ventricular lead: [employer]. Model number: 5076 serial number [id number] Measured data: Right atrial lead: P waves measured 1 mV. Pacing threshold was 1.25 V at 0.4 ms with a pacing impedance of 686 ohms Right ventricular lead: R waves measured 10.8 mV. Pacing threshold was 0.5 V at 0.4 ms with a pacing impedance of 740 ohms Impression: Successful implantation of dual-chamber permanent pacemaker MN[facility] Electrophysiology codes Pacing Procedure 1: Pacin Insert/Replace Pacer A & V PG Moderate Sedation Codes Moderate Sedation Codes Procedure 1: Sedation/Anesthesia: 86643 Mod Sedation by the same physician;Init15 Min Child Age 5 & Up Procedure 2: Sedation/Anesthesia: 65615 Mod Sedation by the same physician; Ea [id number] Minutes
[2021-02-21] MEDS ORDERED: oxyCODONE HCL IR 5 MG TAB (IMMEDIATE RELEASE) PO PRN (15:45)
--- NOTE | 2021-02-21 15:45 | Post Anesthesia Assessment ---
Date of Service February 21, 2021 Post Sedation Assessment Vital Signs Temp Pulse Pulse Resp BP BP Pulse Ox 02/21/21 14:30 43 L 16 191/109 H 93 02/21/21 14:01 42 L 20 187/74 H 97 02/21/21 13:31 36 L 17 197/65 H 92 02/21/21 13:00 40 L 16 202/174 H 91 02/21/21 12:39 36 L 18 200/56 H 94 02/21/21 12:30 36 L 20 94 02/21/21 12:00 36 L 23 95 02/21/21 11:30 35 L 15 94 02/21/21 11:00 36 L 35 L 22 170/60 H 94 02/21/21 10:30 35 L 10 L 97 02/21/21 10:00 36 L 18 94 02/21/21 09:30 35 L 13 93 02/21/21 09:00 37 L 12 92 02/21/21 08:53 88 L 02/21/21 08:45 36.7 C 36 L 9 L 180/50 H 88 L Recovery Score Activity: Moves 4 extremities Respiration: Deep Breath/Cough Circulation: +/-20% PreAnes Value Consciousness: Fully Awake Oxygen Saturation: > 92% On Room Air Discharge Sedation Level of Care: Fast Track Phase II Post Sedation Plan On clinical assessment, the patient appears to have tolerated the sedation without complications. Patient is recovering as anticipated. Patient will continue to be monitored by nursing and may be discharged when sedation discharge criteria are met per below protocol. Upon Completions of procedure up to 15 minutes continue every 5 minute vital signs and the P.A.R. score; then discharge to a Phase I or Fast Track to Phase II per the following guidelines: * Discharge Patient to appropriate Phase II area if PAR is 8 or greater or return to pre- procedure baseline. The post - procedure orders will be as directed. * If PAR score is less than 8 or not return to pre-procedure baseline then patient will follow Phase I monitoring till PAR is reached for Phase II. The Phase I may be done in procedure room or may call to secure a Phase I area. * If naloxone or flumazenil are used for reversal, hold in Phase I for continued monitoring from when last reversal dose was given for a minimum of 60 minutes or longer pending the nurse and/or physician discretion of patient condition before discharge to Phase II. Please call the Sedation Physician to re-evaluate and complete post-note for discharge to Phase II area. Do NOT discharge from procedure sedation or Phase 1 until post- sedation evaluation note is complete by procedure /sedation MD Sedation Discharge Instructions to be given to the patient at discharge to home.
--- NOTE | 2021-02-21 15:47 | Electrocardiogram Report ---
Test Reason : Blood Pressure : / mmHG Vent. Rate : 047 BPM Atrial Rate : 047 BPM P-R Int : 000 ms QRS Dur : 080 ms QT Int : 438 ms P-R-T Axes : 000 -29 234 degrees QTc Int : 387 ms Sinus rhythm with A-V dissociation Junctional rhythm with PVCs Nonspecific ST and T wave abnormality Abnormal ECG When compared with ECG of 08-NOV-2019 10:35, Significant changes have occurred Confirmed by Donny Narayanan ([id number]) on 02/21/2021 3:47:17 PM Referred By: [facility] Confirmed By:Donny Narayanan
[2021-02-21] MEDS ORDERED: ONDANSETRON INJ 2 MG/ML 2 ML VIAL IV PRN (16:38)
[2021-02-21] MEDS ORDERED: CARBOHYDRATES FOR HYPOGLYCEMIA PO PRN (16:38)
[2021-02-21] MEDS ORDERED: DEXTROSE 50% 50 ML SYRINGE IV PRN (16:38)
[2021-02-21] MEDS ORDERED: GLUCAGON FOR INJ 1 MG VIAL SQ PRN (16:38)
[2021-02-21] MEDS ORDERED: ALBUT/IPRATROP 3MG/0.5MG NEB 3 ML VIAL INH PRN (16:38)
[2021-02-21] MEDS ORDERED: GLUCOSE 10 TABS/TUBE PO PRN (16:38)
[2021-02-21] MEDS ORDERED: GLUCOSE 40% GEL 15 GM TUBE PO PRN (16:38)
[2021-02-21] MEDS: INSULIN ASPART 100 UNITS/ML 3 ML PEN SC SCH ×2 (18:03→23:20)
[2021-02-21] MEDS: FERROUS SULFATE 325 MG TAB PO SCH (18:04)
[2021-02-21] MEDS: LABETALOL HCL IV 5 MG/ML 20ML IV PRN (20:15)
[2021-02-21] MEDS: PANTOprazole 40 MG TAB PO SCH (20:39)
[2021-02-21] MEDS: MIRTAZAPINE TAB 15 MG TAB PO SCH (20:39)
[2021-02-21] MEDS: PRAVASTATIN SOD 40 MG TAB PO SCH (20:39)
[2021-02-21] MEDS: hydrOXYzine HCl 10 MG TAB PO SCH (23:19)
[2021-02-22] MEDS: CLINDAMYCIN 600 MG in DEXTROSE 5% 50 ML IV SCH ×3 (00:13→16:00)
[2021-02-22] MEDS ORDERED: DEXTROSE 50% 50 ML SYRINGE IV ONE (00:20)
[2021-02-22] MEDS: LEVOTHYROXINE SODIUM 50 MCG TABLET PO SCH (06:23)
--- NOTE | 2021-02-22 07:07 | Cardiology Progress Note ---
Date of Service February 22, 2021 Assessment & Plan (1) Complete heart block: Normally functioning dual chamber pacemaker. OK for d/c form pacemaker standpoint. She should refrain from lifting the left arm above shoulder or behind neck for 6 weeks. Keep wound dry and steri-strips intact until f/u in our clinic next week (I will arrange) (2) CHF (congestive heart failure): Normal LV systolic function. Likely related to heart block and resulting bradycardia. Possibly diastolic dysfunction in the setting of severe HTN. She appears to have pulmonary congestion on her xray. Breathing comfortably. Will likely require additional diuresis before discharge. (3) HTN (hypertension): SHe will require more aggressive HTN control. Given labetalol last night. COntinue diuresis and consider increase amlodipine. Admission and Anticipated Discharge Date Admission Date: February 21, 2021 Subjective The patient did not have any specific complaints. No pain at implant site. Breathing normal. Tired. Review of Systems Review of Systems: per HPI Physical Exam Physical Exam: Device implant site with very minor ecchymosis. NO hematoma. No drainage or erythema Results & Data ([facility]) Vital Signs (Past 12 Hours) Vital Signs Temp Pulse Resp BP Pulse Ox 02/22/21 03:40 36.5 C 66 18 178/73 H 96 02/21/21 23:34 174/66 H 02/21/21 23:17 36.4 C L 77 15 97 02/21/21 21:06 189/76 H 02/21/21 20:40 196/76 H 02/21/21 19:51 36.3 C L 76 19 205/83 H 97 02/21/21 19:28 204/90 H Laboratory Results CXR reveals good lead position without PTX. Evidence of pulmonary vascular congestion and small rt effusion Device interrogation reveals good lead parameters and device function. (1) HTN (hypertension) Hypertension type: essential hypertension Qualified Code(s): I10 - Essential (primary) hypertension
--- NOTE | 2021-02-22 07:13 | XRay Report ---
XR chest 2V PA/lateral CLINICAL HISTORY: Pacemaker insertion. COMPARISON STUDY: Chest radiograph February 21, 2021. FINDINGS: There is no pneumothorax following placement of a dual lead left subclavian pacemaker. Lead tips project over the right atrial appendage and right ventricle. Cardiomegaly is noted. Small bilat eral pleural effusions are again noted. Interstitial thickening has slightly progressed. This represe nts pulmonary edema. Old deformity of the proximal left humerus is incidentally noted. IMPRESSION: 1. No pneumothorax following placement of a dual-lead left subclavian pacemaker. 2. Mild increase in pulmonary edema and small bilateral pleural effusions. ACT 112: Negative or not required by law. Electronically signed by: Luis Lopez M.D. 02/22/2021 7:12 AM
[2021-02-22 07:15] LABS: Basophils % (auto) 0.4 %; Eosinophils % (auto) 4.2 %; Hematocrit (blood only) 32.6 % (37-47); Hemoglobin 10.7 g/dL (12.0-16.0); Immature Granulocytes % (auto) 0.1 %; Lymphocytes # (auto) 0.95 K/uL (1.2-3.4); Lymphocytes % (auto) 13.6 %; Mean Corpuscular Hemoglobin 28.5 pg (25-34); Mean Corpuscular Hgb Conc 32.8 g/dL (32-36); Mean Corpuscular Volume 86.7 fL (80-100); Mean Platelet Volume 9.5 fL (7.4-10.4); Monocytes % (auto) 10.9 %; Neutrophils # (auto) 4.92 K/uL (1.4-6.5); Neutrophils % (auto) 70.8 %; Platelet Count 235 K/uL (130-400); RDW Coefficient of Variation 14.1 % (11.5-14.5); RDW Standard Deviation 44.9 fL (36.4-46.3); Red Blood Count 3.76 M/uL (4.2-5.4); White Blood Count 6.96 K/uL (4.8-10.8)
[2021-02-22 07:16] LABS: Basophils # (auto) 0.03 K/uL (0-0.2); Eosinophils # (auto) 0.29 K/uL (0-0.5); Immature Granulocytes # (auto) 0.01 K/uL (0.00-0.02); Monocytes # (auto) 0.76 K/uL (0.11-0.59)
[2021-02-22 07:34] LABS: BUN Creatinine Ratio 23.4 (10-20); Calcium 9.1 mg/dl (8.5-10.1); Creatinine Clr Calc Pharmacy 19.6 ml/min; Est GFR (African American) 36.3 ml/min; Est GFR (Non-African American) 31.3 ml/min; Potassium 3.8 mmol/L (3.5-5.1)
[2021-02-22] MEDS: LABETALOL HCL IV 5 MG/ML 20ML IV PRN ×2 (07:52→12:31)
[2021-02-22] MEDS: PANTOprazole 40 MG TAB PO SCH ×2 (08:02→21:03)
[2021-02-22] MEDS: CHOLECALCIFEROL 1,000 UNITS 25 MCG TAB PO SCH (08:02)
[2021-02-22] MEDS: ESCITALOPRAM OXALATE 10 MG TAB PO SCH (08:02)
[2021-02-22] MEDS: FERROUS SULFATE 325 MG TAB PO SCH ×2 (08:03→18:00)
[2021-02-22] MEDS ORDERED: INSULIN GLARGINE SOLOSTAR 100 UNITS/ML 3 ML PEN SC SCH ×2 (09:00)
[2021-02-22] MEDS: INSULIN ASPART 100 UNITS/ML 3 ML PEN SC SCH ×4 (09:05→21:06)
[2021-02-22] MEDS: DEXTROSE 5% 1,000 ML IV SCH (09:19)
[2021-02-22] MEDS ORDERED: POTASSIUM CHLORIDE CRTAB 20 MEQ TABCR PO STA (10:01)
[2021-02-22] MEDS ORDERED: FUROSEMIDE 20 MG in SYRINGE 0 ML IV SCH (10:30)
[2021-02-22 12:53] LABS: Appearance Urine Turbid (Clear); Bacteria Urine Automated 4+ (Negative); Bilirubin Urine Negative (Negative); Blood Urine 2+ (Negative); Color Urine Yellow; Epithelial Cell Urine Auto 20-30 /lpf (0-5); Glucose Urine UA Negative (Negative); Ketones Urine Negative (Negative); Leukocyte Esterase Urine 3+ (Negative); Nitrite Urine Negative (Negative); Protein Urine 1+ (Negative); Specific Gravity Urine 1.008 (1.000-1.030); Urobilinogen Urine Negative (Negative); WBC Urine Automated >30 /hpf (0-5)
[2021-02-22] MEDS: ERTAPENEM SODIUM 500 MG in SODIUM CHLORIDE 0.9% 50 ML IV SCH (14:20)
--- NOTE | 2021-02-22 14:49 | XRay Report ---
KUB CLINICAL HISTORY: abd distension -- fecal impaction ? COMPARISON STUDY: CT of the abdomen and pelvis April 06, 2017. FINDINGS: Pacer leads are partially imaged. There is mild levoscoliosis of the upper lumbar spine. Th e bowel gas pattern is normal. Small bilateral pleural fusions are incidentally noted. Amount of stoo l is within normal limits. IMPRESSION: No evidence for a bowel obstruction. Unremarkable amount of stool. ACT 112: Negative or not required by law. Electronically signed by: Luis Lopez M.D. 02/22/2021 2:48 PM
[2021-02-22] MEDS ORDERED: ACETAMINOPHEN 500 MG TAB ONE (18:04)
[2021-02-22] MEDS: ACETAMINOPHEN 500 MG TAB PO SCH (18:08)
--- NOTE | 2021-02-22 19:20 | Hospitalist Progress Note ---
Date of Service February 22, 2021 Assessment & Plan (1) Complete heart block: s/p pacemaker insertion yesterday. appreciate cardiology assistance. pacer site intact. device working appropriately. cxr today without pneumo or other apparent complication. (2) Acute diastolic (congestive) heart failure: 2nd to complete heart block with severe bradycardia and likely poor forward flow. will give another dose of lasix today. echo findings noted. (3) ARF (acute renal failure): Peak Cr 1.63 at admission. Modestly improved today. Likely prerenal from complete heart block. BMP am. (4) Diabetes mellitus: With significant hypoglycemia requiring institution of dextrose infusion at 20cc/hr of D5W. HOLD lantus. HOLD oral agents. If the lows persist consider cortisol level. (5) Hyperlipidemia: Pravastatin 40 mg daily (6) HTN (hypertension): BPs climbing now that pacer has been inserted and cardiac output is improved. Resume amlodipine. (7) UTI (urinary tract infection): ua suspicious for such. had UTI in December, ESBL e.coli. will cover for same with ertapenem daily. follow culture. (8) Hypothyroidism: last 3 TSHs all elevated would increase synthroid by taking 75mcg of synthroid M// and 50mcg other days (9) Vitamin B12 deficiency (dietary) anemia: most recent b12 level wnl (10) MCI (mild cognitive impairment): noted (11) Anorexia: severe 2nd to depression? remains on lexapro and mirtazapine for such worrisome she continues with anorexia despite the mirtazapine she is mildly distended on abd exam -- start with KUB consider CT abd/pelvis (12) DVT prophylaxis: start chemical means tomorrow Admission and Anticipated Discharge Date Admission Date: February 21, 2021 Subjective staff report little appetite - just picks at food during visit she had flat affect when asked questions she had mild delay in responses but responses were appropriate she has lived at [facility] for several months and admits to feeling depressed no appetite and no energy denies diffuse myalgias or aches denies focal weakness despite 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 she feels no different today called early this am by staff that patient was hypoglycemic despite h/o T2DM needed to be placed on dextrose infusion to maintain euglycemia tele overnight - paced Review of Systems Constitutional: + fatigue, + anorexia and + weight loss (??); no fever and no chills Respiratory: no cough Cardiovascular: no chest pain Gastrointestinal: no abdominal pain, no early satiety, no nausea and no vomiting Musculoskeletal: no myalgia and no body aches Integumentary: no rash Neurologic: + generalized weakness Psychiatric: + depression Physical Exam Constitutional: no acute distress and no altered mental status flat affect ENMT: external ear and nose normal, oropharynx normal Respiratory: no respiratory distress Auscultation: + rales (bases) Cardiovascular: Rate/Rhythm: regular rate and regular rhythm Heart Sounds: normal S1 and normal S2; no murmur Vessels: posterior tibial pulses present and dorsalis pedis pulses present; no JVD Extremities: no edema pacemaker site, left upper chest; no hematoma; minimal ecchymoses Gastrointestinal (Abdomen): normal bowel sounds, soft, nontender, no hepatosplenomegaly Inspection/Auscultation: + abdomen distended (mild) Neurologic: deep tendon reflexes 2+ bilaterally and moves all extremities; no focal motor deficits Psychiatric: Orientation: alert Affect: + flat affect Results & Data Results & Data ([facility]) Vital Signs (Past 12 Hours) Vital Signs Temp Pulse Pulse Resp BP Pulse Ox 02/22/21 18:26 71 02/22/21 15:29 36.4 C L 71 20 188/69 H 95 02/22/21 11:15 36.5 C 66 20 182/69 H 96 02/22/21 10:02 77 02/22/21 07:21 36.7 C 77 20 184/80 H 95 Laboratory Results Laboratory Results - last 24 hr 02/21/21 02/21/21 02/21/21 19:59 20:01 20:19 WBC RBC Hgb Hct MCV MCH MCHC RDW Std Deviation RDW Coeff of Otis Plt Count MPV Immature Gran % (Auto) Neut % (Auto) Lymph % (Auto) [place] % (Auto) Eos % (Auto) Baso % (Auto) Neut # (Auto) Lymph # (Auto) [place] # (Auto) Eos # (Auto) Baso # (Auto) Immature Gran # (Auto) Sodium Potassium Chloride Carbon Dioxide Anion Gap BUN Creatinine Est Cr Clr Drug Dosing Est GFR ( Amer) Est GFR (Non-Af Amer) BUN/Creatinine Ratio Glucose POC Glucose 57 L* 60 L* 142 H Calcium Magnesium Urine Color Urine Appearance Urine pH Ur Specific [place] Urine Protein Urine Glucose (UA) Urine Ketones Urine Blood Urine Nitrite Urine Bilirubin Urine Urobilinogen Ur Leukocyte Esterase Urine WBC (Auto) Urine RBC (Auto) U Hyaline Cast (Auto) U Epithel Cells (Auto) Urine Bacteria (Auto) 02/21/21 02/22/21 02/22/21 23:36 00:12 03:33 WBC RBC Hgb Hct MCV MCH MCHC RDW Std Deviation RDW Coeff of [place]is Plt Count MPV Immature Gran % (Auto) Neut % (Auto) Lymph % (Auto) [place] % (Auto) Eos % (Auto) Baso % (Auto) Neut # (Auto) Lymph # (Auto) [place] # (Auto) Eos # (Auto) Baso # (Auto) Immature Gran # (Auto) Sodium Potassium Chloride Carbon Dioxide Anion Gap BUN Creatinine Est Cr Clr Drug Dosing Est GFR ( Amer) Est GFR (Non-Af Amer) BUN/Creatinine Ratio Glucose POC Glucose 70 77 103 H Calcium Magnesium Urine Color Urine Appearance Urine pH Ur Specific [place] Urine Protein Urine Glucose (UA) Urine Ketones Urine Blood Urine Nitrite Urine Bilirubin Urine Urobilinogen Ur Leukocyte Esterase Urine WBC (Auto) Urine RBC (Auto) U Hyaline Cast (Auto) U Epithel Cells (Auto) Urine Bacteria (Auto) 02/22/21 02/22/21 02/22/21 07:01 07:01 07:23 WBC 6.96 RBC 3.76 L Hgb 10.7 L Hct 32.6 L MCV 86.7 MCH 28.5 MCHC 32.8 RDW Std Deviation 44.9 RDW Coeff of Otis 14.1 Plt Count 235 MPV 9.5 Immature Gran % (Auto) 0.1 Neut % (Auto) 70.8 Lymph % (Auto) 13.6 [place] % (Auto) 10.9 Eos % (Auto) 4.2 Baso % (Auto) 0.4 Neut # (Auto) 4.92 Lymph # (Auto) 0.95 L [place] # (Auto) 0.76 H Eos # (Auto) 0.29 Baso # (Auto) 0.03 Immature Gran # (Auto) 0.01 Sodium 143 Potassium 3.8 Chloride 110 H Carbon Dioxide 25 Anion Gap 8.0 BUN 35 H Creatinine 1.48 H Est Cr Clr Drug Dosing 19.6 Est GFR ( Amer) 36.3 Est GFR (Non-Af Amer) 31.3 BUN/Creatinine Ratio 23.4 H Glucose 68 L POC Glucose 71 Calcium 9.1 Magnesium 2.0 Urine Color Urine Appearance Urine pH Ur Specific [place] Urine Protein Urine Glucose (UA) Urine Ketones Urine Blood Urine Nitrite Urine Bilirubin Urine Urobilinogen Ur Leukocyte Esterase Urine WBC (Auto) Urine RBC (Auto) U Hyaline Cast (Auto) U Epithel Cells (Auto) Urine Bacteria (Auto) 02/22/21 02/22/21 02/22/21 08:50 11:00 12:40 WBC RBC Hgb Hct MCV MCH MCHC RDW Std Deviation RDW Coeff of Otis Plt Count MPV Immature Gran % (Auto) Neut % (Auto) Lymph % (Auto) [place] % (Auto) Eos % (Auto) Baso % (Auto) Neut # (Auto) Lymph # (Auto) [place] # (Auto) Eos # (Auto) Baso # (Auto) Immature Gran # (Auto) Sodium Potassium Chloride Carbon Dioxide Anion Gap BUN Creatinine Est Cr Clr Drug Dosing Est GFR ( Amer) Est GFR (Non-Af Amer) BUN/Creatinine Ratio Glucose POC Glucose 78 83 Calcium Magnesium Urine Color Yellow Urine Appearance Turbid A Urine pH 6.0 Ur Specific [place] 1.008 Urine Protein 1+ H Urine Glucose (UA) Negative Urine Ketones Negative Urine Blood 2+ H Urine Nitrite Negative Urine Bilirubin Negative Urine Urobilinogen Negative Ur Leukocyte Esterase 3+ H Urine WBC (Auto) >30 H Urine RBC (Auto) 5-10 H U Hyaline Cast (Auto) 1-5 U Epithel Cells (Auto) 20-30 H Urine Bacteria (Auto) 4+ H 02/22/21 16:10 WBC RBC Hgb Hct MCV MCH MCHC RDW Std Deviation RDW Coeff of Otis Plt Count MPV Immature Gran % (Auto) Neut % (Auto) Lymph % (Auto) [place] % (Auto) Eos % (Auto) Baso % (Auto) Neut # (Auto) Lymph # (Auto) [place] # (Auto) Eos # (Auto) Baso # (Auto) Immature Gran # (Auto) Sodium Potassium Chloride Carbon Dioxide Anion Gap BUN Creatinine Est Cr Clr Drug Dosing Est GFR ( Amer) Est GFR (Non-Af Amer) BUN/Creatinine Ratio Glucose POC Glucose 96 Calcium Magnesium Urine Color Urine Appearance Urine pH Ur Specific [place] Urine Protein Urine Glucose (UA) Urine Ketones Urine Blood Urine Nitrite Urine Bilirubin Urine Urobilinogen Ur Leukocyte Esterase Urine WBC (Auto) Urine RBC (Auto) U Hyaline Cast (Auto) U Epithel Cells (Auto) Urine Bacteria (Auto) PG Care Time/CCT Total # of Minutes Spent Total Time Spent with Patient: Total time spent is greater than 50% in coordination of care (as documented) at patient's floor/unit and/or counseling patient: Coding Level of Care Code 93311 Subseq Hosp Care Lvl 3 Diagnoses Complete heart block I44.2 Acute diastolic (congestive) heart failure I50.31 ARF (acute renal failure) N17.9 Diabetes mellitus E11.9 Diabetes mellitus complication status: without complication Diabetes mellitus remote computer terminal operator insulin use: without skilled nursing use Diabetes mellitus type: type 2 Hyperlipidemia E78.5 HTN (hypertension) I10 Hypertension type: essential hypertension UTI (urinary tract infection) N39.0 Hypothyroidism E03.9 Vitamin B12 deficiency (dietary) anemia D51.8 MCI (mild cognitive impairment) G31.84 Anorexia R63.0 DVT prophylaxis Z29.9 (1) Diabetes mellitus Diabetes mellitus complication status: without complication Diabetes mellitus remote computer terminal operator insulin use: without skilled nursing use Diabetes mellitus type: type 2 Qualified Code(s): E11.9 - Type 2 diabetes mellitus without complications (2) HTN (hypertension) Hypertension type: essential hypertension Qualified Code(s): I10 - Essential (primary) hypertension
[2021-02-22] MEDS: PRAVASTATIN SOD 40 MG TAB PO SCH (21:03)
[2021-02-22] MEDS: MIRTAZAPINE TAB 15 MG TAB PO SCH (21:03)
[2021-02-22] MEDS: hydrOXYzine HCl 10 MG TAB PO SCH (21:03)
[2021-02-23] MEDS: LEVOTHYROXINE SODIUM 50 MCG TABLET PO SCH (06:20)
[2021-02-23 07:28] LABS: Calcium 8.7 mg/dl (8.5-10.1); Creatinine Clr Calc Pharmacy 19.6 ml/min; Est GFR (African American) 36.3 ml/min; Est GFR (Non-African American) 31.3 ml/min; Potassium 4.1 mmol/L (3.5-5.1)
[2021-02-23] MEDS: LABETALOL HCL IV 5 MG/ML 20ML IV PRN (08:18)
[2021-02-23] MEDS: INSULIN ASPART 100 UNITS/ML 3 ML PEN SC SCH ×3 (08:21→16:24)
[2021-02-23] MEDS: ESCITALOPRAM OXALATE 10 MG TAB PO SCH (08:22)
[2021-02-23] MEDS: CHOLECALCIFEROL 1,000 UNITS 25 MCG TAB PO SCH (08:22)
[2021-02-23] MEDS: ACETAMINOPHEN 500 MG TAB PO SCH ×3 (08:22→21:21)
[2021-02-23] MEDS: PANTOprazole 40 MG TAB PO SCH ×2 (08:22→21:21)
[2021-02-23] MEDS: FERROUS SULFATE 325 MG TAB PO SCH ×2 (08:23→18:22)
[2021-02-23] MEDS ORDERED: amLODIPine BESYLATE 5 MG TAB PO ONE (09:37)
[2021-02-23] MEDS: DEXTROSE 5% 1,000 ML IV SCH (12:28)
[2021-02-23] MEDS: ERTAPENEM SODIUM 500 MG in SODIUM CHLORIDE 0.9% 50 ML IV SCH (14:23)
[2021-02-23] MEDS ORDERED: FUROSEMIDE 20 MG in SYRINGE 0 ML IV ONE (18:00)
--- NOTE | 2021-02-23 20:31 | CT Scan Report ---
CT SCAN OF THE ABDOMEN AND PELVIS WITHOUT IV CONTRAST CLINICAL HISTORY: Urinary tract infection. COMPARISON STUDY: Abdominal CT dated 04/06/2017. TECHNIQUE: CT scan of the abdomen and pelvis is performed from the lung bases to the proximal femora. Images are reviewed in the axial, sagittal, and coronal planes. IV contrast was not administered for this examination. Note that the examination is significantly suboptimal without oral and IV contrast . There is also motion artifact, as well as streak artifact from the arms which could not be elevated above the abdomen. A dose lowering technique was utilized adhering to the principles of ALARA. CT DOSE: 492.25 mGy.cm FINDINGS: Lung bases: The heart is enlarged and without pericardial effusion. Pacemaker leads are noted. The co ronary arteries are densely calcified. There is diminished attenuation of the cardiac blood pool as c ompared to the myocardium suggesting anemia. There are small pleural effusions with bibasilar consoli dation. There is a small hiatal hernia. Liver: The unenhanced liver is normal in size and heterogeneous in attenuation. Nodularity of the hep atic surface contour suggests early change of cirrhosis. There is no intrahepatic biliary ductal dila tation. Gallbladder: Contracted. Spleen: Normal in size and attenuation. Pancreas: The unenhanced pancreas is moderately atrophic and grossly unremarkable. Adrenal glands: Unremarkable. Kidneys: The unenhanced kidneys are atrophic, right asymmetrically greater than left. There is modera te right-sided hydronephrosis. The right ureter is normal in caliber and this is unchanged from previ ous, possibly representing a UPJ type obstruction. There are at least 3 nonobstructing right renal ca lculi measuring up to 6 mm. No left renal calculi are identified and there is no left-sided hydroneph rosis. There is no evidence of contour deforming renal mass lesion. There are renovascular calcificat ions. Abdominal vasculature: The abdominal aorta is normal in course and caliber noting advanced atheroscle rotic calcification. Bowel: There is mild sigmoid diverticulosis without CT evidence of acute diverticulitis. No bowel obs truction is seen. The appendix is not identified and reported surgically absent. Peritoneum: There is no intraperitoneal free air or abdominal ascites. Lymphadenopathy: None. Pelvic viscera: The bladder is decompressed around a Cotton catheter. Intraluminal gas is nonspecific and may be related to instrumentation. The bladder wall appears thickened and there is pericystic inf lammation. The uterus is surgically absent. No adnexal lesion is seen. There are large bilateral fat- containing inguinal hernias. Skeletal structures: The skeletal structures are osteopenic. No lytic or blastic lesions are seen. Th ere are healed right-sided rib fractures. There is moderate lumbosacral spondylosis and mild scoliosi s. There are chronic compression deformity of T12 and L3. IMPRESSION: 1. Suboptimal examination without oral and IV contrast. There is also streak and motion artifact. 2. There are small pleural effusions with bibasilar consolidation. This could represent atelectasis a nd/or pneumonia and clinical correlation will be required. 3. Cardiomegaly and cardiac pacemaker. 4. Findings suggest cystitis. Correlate with clinical findings and urinalysis. 5. Right-sided nephrolithiasis. 6. There is asymmetric cortical atrophy of the right kidney and chronic right hydronephrosis. The rig ht ureter is normal in caliber, and this likely represents a UPJ type obstruction. 7. Colonic diverticulosis without CT evidence of acute diverticulitis. 8. Additional findings as above. ACT 112: Negative or not required by law. Electronically signed by: Armando Valdes M.D. 02/23/2021 8:30 PM
[2021-02-23] MEDS: MIRTAZAPINE TAB 15 MG TAB PO SCH (21:21)
[2021-02-23] MEDS: PRAVASTATIN SOD 40 MG TAB PO SCH (21:21)
--- NOTE | 2021-02-23 21:23 | Hospitalist Progress Note ---
Date of Service February 23, 2021 Assessment & Plan (1) Complete heart block: POD #2 s/p pacemaker insertion. appreciate cardiology assistance. pacer site intact. device working appropriately. tele with pacing 19/04. cxr without pneumothorax or other apparent complication. (2) Acute diastolic (congestive) heart failure: 2nd to complete heart block with severe bradycardia and likely poor forward flow at time of admission. will give another dose of lasix today. echo findings noted. re-eval tomorrow. (3) ARF (acute renal failure): Peak Cr 1.63 at admission. Continues to improve. Likely prerenal from complete heart block. BMP am. (4) Diabetes mellitus: With significant hypoglycemia requiring institution of dextrose infusion at 20cc/hr of D5W. HOLD lantus. HOLD oral agents. This is all in the setting of severe anorexia. Check cortisol level AM - r/o boy's. Cont D5W at 20cc/hr as previous until BSGs rebound. (5) Hyperlipidemia: Pravastatin 40 mg daily (6) HTN (hypertension): Resumed amlodipine. (7) UTI (urinary tract infection): urine cx with GNR. had UTI in December, ESBL e.coli. will cover for same with ertapenem daily. follow culture. will check CT abd/pelvis - r/o occult kidney stone, other intra-abdominal pathology contributing to anorexia/FTT and her recurrent UTis. (8) Hypothyroidism: last 3 TSHs all elevated would increase synthroid by taking 75mcg of synthroid M/W/F and 50mcg other days start this regimen dosing tomorrow (9) Vitamin B12 deficiency (dietary) anemia: most recent b12 level wnl check a B1 level as well (10) MCI (mild cognitive impairment): noted (11) Anorexia: severe 2nd to depression? remains on lexapro and mirtazapine for such worrisome she continues with anorexia despite the mirtazapine spoke with son at lengthy about this issue uncertain if current symptomatology is from UTI?? will check CT abd/pelvis check sed rate, crp, B1 level, cortisol then go from there (12) DVT prophylaxis: start heparin 5000 BID son updated extensively by phone today Admission and Anticipated Discharge Date Admission Date: February 21, 2021 Subjective tele - paced overnight patient continues with very poor appetite lethargic - eyes open, answers questions, but no energy and no affect states she is "short of breath" at rest no chest pain centrally; minimal discomfort over pacer site no abd pain staff report very fatigued during the day spoke with son by phone -- he states that she had had depression earlier in - improved with lexapro and mirtazapine; then about Mother's day (February 02) she "wasn't herself" since February 02 she has been fatigued, tired, poor appetite, not wanting to do activities, etc he thinks she is "giving up" he mentioned that she is depressed because they are in the process of selling the home where she had lived for many years Review of Systems Constitutional: + fatigue, + weakness and + anorexia; no fever, no chills and no body aches Respiratory: + dyspnea; no cough Cardiovascular: no chest pain and no orthopnea Gastrointestinal: no abdominal pain, no nausea and no vomiting Musculoskeletal: no joint pain Psychiatric: + depression (admitted to feeling depressed, then denied it ) Physical Exam Constitutional: + ill appearing and + frail appearing; no acute distress and no altered mental status flat affect, very fatigued/tired ENMT: external ear and nose normal, oropharynx normal Respiratory: no respiratory distress Auscultation: + rales (bases) Cardiovascular: Rate/Rhythm: regular rate and regular rhythm Heart Sounds: normal S1 and normal S2; no murmur Vessels: posterior tibial pulses present and dorsalis pedis pulses present; no JVD Extremities: no edema pacer site left upper chest with minimal ecchymoses/swelling; no pocket hematoma; incision clean Gastrointestinal (Abdomen): normal bowel sounds, soft, nontender, no hepatosplenomegaly Inspection/Auscultation: + abdomen distended (mild) Neurologic: moves all extremities; no focal motor deficits Psychiatric: Orientation: alert Affect: + flat affect Results & Data Results & Data ([facility]) Vital Signs (Past 12 Hours) Vital Signs Temp Pulse Resp BP Pulse Ox 02/23/21 18:55 36.3 C L 76 18 144/73 H 98 02/23/21 15:35 36.4 C L 76 19 187/64 H 95 02/23/21 11:33 36.2 C L 64 16 167/73 H 99 Laboratory Results Laboratory Results - last 24 hr 02/23/21 02/23/21 02/23/21 06:27 07:35 11:25 Sodium 140 Potassium 4.1 Chloride 108 H Carbon Dioxide 26 Anion Gap 7.0 BUN 34 H Creatinine 1.48 H Est Cr Clr Drug Dosing 19.6 Est GFR ( Amer) 36.3 Est GFR (Non-Af Amer) 31.3 BUN/Creatinine Ratio 23.0 H Glucose 97 POC Glucose 78 82 Calcium 8.7 02/23/21 02/23/21 16:19 20:19 Sodium Potassium Chloride Carbon Dioxide Anion Gap BUN Creatinine Est Cr Clr Drug Dosing Est GFR ( Amer) Est GFR (Non-Af Amer) BUN/Creatinine Ratio Glucose POC Glucose 88 123 H Calcium urine cx - GNR, >100,000 PG Care Time/CCT Total # of Minutes Spent Total Time Spent with Patient: Total time spent is greater than 50% in coordination of care (as documented) at patient's floor/unit and/or counseling patient: Coding Level of Care Code 36301 Subseq Hosp Care Lvl 3 Diagnoses Complete heart block I44.2 Acute diastolic (congestive) heart failure I50.31 ARF (acute renal failure) N17.9 Diabetes mellitus E11.9 Diabetes mellitus complication status: without complication Diabetes mellitus jail insulin use: without jail use Diabetes mellitus type: type 2 Hyperlipidemia E78.5 HTN (hypertension) I10 Hypertension type: essential hypertension UTI (urinary tract infection) N39.0 Hypothyroidism E03.9 Vitamin B12 deficiency (dietary) anemia D51.8 MCI (mild cognitive impairment) G31.84 Anorexia R63.0 DVT prophylaxis Z29.9 (1) Diabetes mellitus Diabetes mellitus complication status: without complication Diabetes mellitus manager intermediate insulin use: without jail use Diabetes mellitus type: type 2 Qualified Code(s): E11.9 - Type 2 diabetes mellitus without complications (2) HTN (hypertension) Hypertension type: essential hypertension Qualified Code(s): I10 - Essential (primary) hypertension
[2021-02-24] MEDS: LEVOTHYROXINE SODIUM 75 MCG TABLET PO SCH (05:41)
[2021-02-24] MEDS: PANTOprazole 40 MG TAB PO SCH ×2 (07:33→20:22)
[2021-02-24] MEDS: FERROUS SULFATE 325 MG TAB PO SCH ×2 (07:33→16:19)
[2021-02-24] MEDS: CHOLECALCIFEROL 1,000 UNITS 25 MCG TAB PO SCH (07:34)
[2021-02-24] MEDS: ACETAMINOPHEN 500 MG TAB PO SCH ×3 (07:34→20:18)
[2021-02-24] MEDS: ESCITALOPRAM OXALATE 10 MG TAB PO SCH (07:35)
[2021-02-24 07:43] LABS: BUN Creatinine Ratio 19.3 (10-20); C Reactive Protein 5.89 mg/dl (0-0.29); Creatinine Clr Calc Pharmacy 21.8 ml/min; Est GFR (African American) 40.9 ml/min; Est GFR (Non-African American) 35.3 ml/min; Potassium 3.7 mmol/L (3.5-5.1)
[2021-02-24] MEDS ORDERED: FUROSEMIDE 20 MG in SYRINGE 0 ML IV ONE ×2 (09:00→11:00)
[2021-02-24] MEDS: POTASSIUM CHLORIDE CRTAB 20 MEQ TABCR PO SCH ×2 (09:49→20:23)
[2021-02-24] MEDS: THIAMINE HCL 100 MG TAB PO SCH ×2 (11:25→20:23)
[2021-02-24] MEDS: HEPARIN SOD 5,000 UNIT/0.5 ML VIAL SQ SCH ×2 (12:04→20:22)
[2021-02-24] MEDS: ERTAPENEM SODIUM 500 MG in SODIUM CHLORIDE 0.9% 50 ML IV SCH (13:50)
[2021-02-24] MEDS: DEXTROSE 5% 1,000 ML IV SCH (16:20)
[2021-02-24] MEDS ORDERED: DEXTROSE 5% 1,000 ML IV SCH (16:30)
[2021-02-24] MEDS: LABETALOL HCL IV 5 MG/ML 20ML IV PRN (18:16)
[2021-02-24] MEDS: amLODIPine BESYLATE 5 MG TAB PO SCH (20:21)
[2021-02-24] MEDS: MIRTAZAPINE TAB 15 MG TAB PO SCH (20:22)
[2021-02-24] MEDS: PRAVASTATIN SOD 40 MG TAB PO SCH (20:23)
--- NOTE | 2021-02-24 20:53 | Hospitalist Progress Note ---
Date of Service February 24, 2021 Assessment & Plan (1) Complete heart block: POD #3 s/p permanent pacemaker placement. appreciate cardiology assistance. pacer site intact. device working appropriately. tele with pacing [id number]. cxr without pneumothorax or other apparent complication. cont left arm restrictions. (2) Acute diastolic (congestive) heart failure: 2nd to complete heart block with severe bradycardia and likely poor forward flow at time of admission. still volume overloaded clinically and radiographically. lasix 20mg IV x 1 again today. echo findings noted. re-eval tomorrow. BMP am. (3) ARF (acute renal failure): Peak Cr 1.63 at admission. Continues to improve. Cr 1.3 today. Likely prerenal from complete heart block. BMP am. (4) Diabetes mellitus: With significant hypoglycemia requiring institution of dextrose infusion at 20cc/hr of D5W. All diabetic agents held. Cortisol level wnl. Anorexia, hypoglycemia in setting of infection, etc likely all to blame. Wean dextrose drip to 10cc/hr and follow BSGs. (5) Hyperlipidemia: Pravastatin 40 mg daily (6) HTN (hypertension): Uncontrolled. Increase amlodipine to 2.5mg BID. (7) UTI (urinary tract infection): urine cx with ESBL e.coli. cont ertapenem daily. day #[address] abd/pelvis yesterday pm with findings c/w cystitis and right-sided hydronephrosis/hydroureter. see below. plan at least 7 days of ertapenem. 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 remains on lexapro and mirtazapine for such worrisome she continues with anorexia despite the mirtazapine spoke with son at lengthy about this issue uncertain if current symptomatology is from UTI?? if anorexia does not improve with Rx of UTI -- etiology? sed rate/crp very high today; could be due to UTI if they remain high consider autoimmune w/u, SPEP/UPEP, etc (12) Elevated sed rate: 2nd to UTI? if not UTI -- MM? PMR? other autoimmune disease? if anorexia, CRP/sed rate, etc don't improve with Rx of UTI then consider SPEP, UPEP, MATT, etc. or, could give low-dose prednisone and see if rapid response which would suggest PMR (but she is not having myalgias or flu-like symptoms). (13) Hydroureteronephrosis: RIGHT SIDE ?UPJ obstruction this issue will set her up for UTIs will d/w urology tomorrow (14) DVT prophylaxis: heparin 5000 BID son updated extensively by phone yesterday & at bedside today PT, OT Admission and Anticipated Discharge Date Admission Date: February 21, 2021 Subjective tele - paced overnight once again no dysrhythmia patient continues with very poor appetite only eating bites liquid intake also poor continues with fatigue son was present at bedside today during the visit he feels she looks better than his last visit w/ her 2 days ago she was slightly more animated than yesterday but still quite flat affect with little expression BSGs all >100 today on D5W drip at 20cc/hr no events during the night - did sleep pretty good Review of Systems Respiratory: no cough and no dyspnea Cardiovascular: no chest pain Gastrointestinal: no abdominal pain Physical Exam Constitutional: + altered mental status and + frail appearing; no acute distress ENMT: external ear and nose normal, oropharynx normal Respiratory: no respiratory distress Auscultation: + rales (bases - slightly better); no wheezes Cardiovascular: Rate/Rhythm: regular rate and regular rhythm Heart Sounds: normal S1 and normal S2; no murmur Vessels: posterior tibial pulses present and dorsalis pedis pulses present; no JVD Extremities: no edema pacer site left upper chest - clean, mild ecchymoses, mild tenderness to touch Gastrointestinal (Abdomen): normal bowel sounds, soft, nontender, no hepatosplenomegaly Inspection/Auscultation: + abdomen distended (mild - no change ) Neurologic: moves all extremities; no focal motor deficits no proximal muscle weakness of right arm or b/l hips Psychiatric: Orientation: alert Affect: + flat affect Results & Data Results & Data ([facility]) Vital Signs (Past 12 Hours) Vital Signs Temp Pulse Pulse Resp BP Pulse Ox 02/24/21 18:49 36.2 C L 82 19 167/70 H 91 02/24/21 15:40 36.3 C L 84 19 184/87 H 94 02/24/21 11:06 36.5 C 68 19 152/66 H 96 02/24/21 09:51 75 Laboratory Results Laboratory Results - last 24 hr 02/24/21 02/24/21 02/24/21 06:44 06:44 06:44 ESR 78 H Sodium 138 Potassium 3.7 Chloride 105 Carbon Dioxide 26 Anion Gap 7.0 BUN 26 H Creatinine 1.34 H Est Cr Clr Drug Dosing 21.8 Est GFR ( Amer) 40.9 Est GFR (Non-Af Amer) 35.3 BUN/Creatinine Ratio 19.3 Glucose 132 H POC Glucose Calcium 9.0 C-Reactive Protein 5.89 H Vitamin B1 Cortisol AM Sample 20.49 02/24/21 02/24/21 02/24/21 06:44 07:27 11:27 ESR Sodium Potassium Chloride Carbon Dioxide Anion Gap BUN Creatinine Est Cr Clr Drug Dosing Est GFR ( Amer) Est GFR (Non-Af Amer) BUN/Creatinine Ratio Glucose POC Glucose 107 H 114 H Calcium C-Reactive Protein Vitamin B1 Pending Cortisol AM Sample 02/24/21 02/24/21 16:18 20:07 ESR Sodium Potassium Chloride Carbon Dioxide Anion Gap BUN Creatinine Est Cr Clr Drug Dosing Est GFR ( Amer) Est GFR (Non-Af Amer) BUN/Creatinine Ratio Glucose POC Glucose 125 H 86 Calcium C-Reactive Protein Vitamin B1 Cortisol AM Sample PG Care Time/CCT Total # of Minutes Spent Total Time Spent with Patient: Total time spent is greater than 50% in coordination of care (as documented) at patient's floor/unit and/or counseling patient: Coding Level of Care Code 39966 Subseq Hosp Care Lvl 3 Diagnoses Complete heart block I44.2 Acute diastolic (congestive) heart failure I50.31 ARF (acute renal failure) N17.9 Diabetes mellitus E11.9 Diabetes mellitus type: type 2 Diabetes mellitus nursing home insulin use: without petroleum terminal 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 Diabetes mellitus complication status: without complication Hyperlipidemia E78.5 HTN (hypertension) I10 Hypertension type: essential hypertension UTI (urinary tract infection) N39.0 Hypothyroidism E03.9 Vitamin B12 deficiency (dietary) anemia D51.8 MCI (mild cognitive impairment) G31.84 Anorexia R63.0 Elevated sed rate R70.0 Hydroureteronephrosis N13.30 DVT prophylaxis Z29.9 (1) Diabetes mellitus Diabetes mellitus type: type 2 Diabetes mellitus nursing home insulin use: without nursing home use Diabetes mellitus complication status: without complication Qualified Code(s): E11.9 - Type 2 diabetes mellitus without complications (2) HTN (hypertension) Hypertension type: essential hypertension Qualified Code(s): I10 - Essential (primary) hypertension
[2021-02-25 07:03] LABS: BUN Creatinine Ratio 17.3 (10-20); Calcium 8.6 mg/dl (8.5-10.1); Creatinine Clr Calc Pharmacy 19.5 ml/min; Est GFR (African American) 40.2 ml/min; Est GFR (Non-African American) 34.7 ml/min; Magnesium 2.2 mg/dl (1.8-2.4); Potassium 3.9 mmol/L (3.5-5.1)
[2021-02-25] MEDS: LEVOTHYROXINE SODIUM 50 MCG TABLET PO SCH (07:25)
[2021-02-25] MEDS: CHOLECALCIFEROL 1,000 UNITS 25 MCG TAB PO SCH (08:21)
[2021-02-25] MEDS: ACETAMINOPHEN 500 MG TAB PO SCH ×3 (08:21→20:37)
[2021-02-25] MEDS: THIAMINE HCL 100 MG TAB PO SCH ×2 (08:21→20:42)
[2021-02-25] MEDS: FERROUS SULFATE 325 MG TAB PO SCH ×2 (08:21→15:43)
[2021-02-25] MEDS: ESCITALOPRAM OXALATE 10 MG TAB PO SCH (08:21)
[2021-02-25] MEDS: POTASSIUM CHLORIDE CRTAB 20 MEQ TABCR PO SCH ×2 (08:21→20:40)
[2021-02-25] MEDS: HEPARIN SOD 5,000 UNIT/0.5 ML VIAL SQ SCH ×2 (08:21→20:39)
[2021-02-25] MEDS: PANTOprazole 40 MG TAB PO SCH ×2 (08:21→21:33)
[2021-02-25] MEDS: amLODIPine BESYLATE 5 MG TAB PO SCH ×2 (08:22→20:38)
[2021-02-25] MEDS: LABETALOL HCL IV 5 MG/ML 20ML IV PRN (09:13)
[2021-02-25] MEDS: ERTAPENEM SODIUM 500 MG in SODIUM CHLORIDE 0.9% 50 ML IV SCH (13:47)
[2021-02-25] MEDS ORDERED: Nursing to Pharmacy Communication SCH (15:00)
[2021-02-25] MEDS ORDERED: predniSONE 20 MG TAB PO STA (15:12)
--- NOTE | 2021-02-25 19:19 | Hospitalist Progress Note ---
Date of Service February 25, 2021 Assessment & Plan (1) Complete heart block: POD #4 s/p permanent pacemaker placement. appreciate cardiology assistance. pacer site intact. mild swelling; no pocket hematoma. device working appropriately. tele with pacing [id number]. cxr without pneumothorax or other apparent complication. cont left arm restrictions. cont tylenol 1gm TID for discomfort/pain. (2) Acute diastolic (congestive) heart failure: 2nd to complete heart block with severe bradycardia and likely poor forward flow at time of admission. looks euvolemic today. no further diuresis. (3) ARF (acute renal failure): Peak Cr 1.63 at admission. Likely prerenal from complete heart block. BMP am. (4) UTI (urinary tract infection): urine cx with ESBL e.coli. cont ertapenem daily. day #[address] abd/pelvis with findings c/w cystitis and right-sided hydronephrosis/hydroureter. see below. plan at least 7 days of ertapenem. (5) Diabetes mellitus: With significant hypoglycemia requiring institution of dextrose infusion at 20cc/hr of D5W several days ago. All diabetic agents held. Cortisol level wnl. Anorexia, hypoglycemia in setting of infection, etc likely all to blame. Wean dextrose drip off today. (6) Hyperlipidemia: Pravastatin 40 mg daily (7) HTN (hypertension): Uncontrolled. Increased amlodipine to 2.5mg BID. May need 5mg BID. 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 remains on lexapro and mirtazapine for such worrisome she continues with anorexia despite the mirtazapine uncertain if current symptomatology is from UTI?? however her anorexia has not improved with Rx of UTI sed rate/crp very high today; could be due to UTI PMR? other? consider autoimmune w/u, SPEP/UPEP, etc will give prednisone 20mg x 1 today if robust response in energy, muscle weakness, etc - could be PMR re-eval tomorrow (12) Elevated sed rate: 2nd to UTI? if not UTI -- MM? PMR? other autoimmune disease? if anorexia, CRP/sed rate, etc don't improve with Rx of UTI then consider SPEP, UPEP, MATT, etc. see above (13) Hydroureteronephrosis: RIGHT SIDE ?UPJ obstruction this issue will set her up for UTIs I spoke with urology by phone - ok for her to have outpatient f/u for this nothing acute to do it is chronic based on imaging (14) DVT prophylaxis: heparin 5000 BID son updated extensively by phone last 2 days PT, OT Admission and Anticipated Discharge Date Admission Date: February 21, 2021 Subjective very weak during the visit I observed a transfer from bed to chair with the physical therapist moderate-max assist for such could barely lift legs tremor arms noted pt without complaints for me today asking at odd times "did my surgery go well?" (referring to pacer) tele - paced Review of Systems Constitutional: + fatigue and + anorexia (ongoing - severe ) Respiratory: no cough Cardiovascular: + chest pain (tender near pacer site ); no orthopnea and no edema Gastrointestinal: no abdominal pain, no nausea and no vomiting Physical Exam Constitutional: + ill appearing, + altered mental status and + frail appearing; no acute distress very weak ENMT: external ear and nose normal, oropharynx normal Respiratory: no respiratory distress Auscultation: + diminished lung sounds (bases); no crackles and no wheezes Cardiovascular: Rate/Rhythm: regular rate and regular rhythm Heart Sounds: normal S1 and normal S2; no murmur Vessels: posterior tibial pulses present and dorsalis pedis pulses present; no JVD Extremities: no edema Gastrointestinal (Abdomen): normal bowel sounds, soft, nontender, no hepatosplenomegaly Skin: pacer site, left upper chest -- mildly tender to touch; mild swelling but no pocket hematoma Psychiatric: Orientation: alert and oriented to person; + not oriented to time Affect: + flat affect Results & Data Results & Data ([facility]) Vital Signs (Past 12 Hours) Vital Signs Temp Pulse Pulse Pulse Resp BP Pulse Ox 02/25/21 16:17 36.7 C 80 17 156/69 H 93 02/25/21 16:00 80 02/25/21 12:15 36.3 C L 73 18 149/69 H 96 06/01/21 09:56 73 146/91 H 02/25/21 08:00 72 02/25/21 07:59 36.4 C L 78 18 189/74 H 96 Laboratory Results Laboratory Results - last 24 hr 02/24/21 02/25/21 02/25/21 20:07 05:48 07:25 Sodium 139 Potassium 3.9 Chloride 107 Carbon Dioxide 27 Anion Gap 5.0 BUN 24 H Creatinine 1.36 H Est Cr Clr Drug Dosing 19.5 Est GFR ( Amer) 40.2 Est GFR (Non-Af Amer) 34.7 BUN/Creatinine Ratio 17.3 Glucose 78 POC Glucose 86 85 Calcium 8.6 Magnesium 2.2 02/25/21 02/25/21 11:42 16:18 Sodium Potassium Chloride Carbon Dioxide Anion Gap BUN Creatinine Est Cr Clr Drug Dosing Est GFR ( Amer) Est GFR (Non-Af Amer) BUN/Creatinine Ratio Glucose POC Glucose 106 H 88 Calcium Magnesium PG Care Time/CCT Total # of Minutes Spent Total Time Spent with Patient: Total time spent is greater than 50% in coordination of care (as documented) at patient's floor/unit and/or counseling patient: Coding Level of Care Code 77637 Subseq Hosp Care Lvl 2 Diagnoses Complete heart block I44.2 Acute diastolic (congestive) heart failure I50.31 ARF (acute renal failure) N17.9 UTI (urinary tract infection) N39.0 Diabetes mellitus E11.9 Diabetes mellitus complication status: without complication Diabetes mellitus nursing home insulin use: without rodent exterminator use Diabetes mellitus type: type 2 Hyperlipidemia E78.5 HTN (hypertension) I10 Hypertension type: essential hypertension Hypothyroidism E03.9 Vitamin B12 deficiency (dietary) anemia D51.8 MCI (mild cognitive impairment) G31.84 Anorexia R63.0 Elevated sed rate R70.0 Hydroureteronephrosis N13.30 DVT prophylaxis Z29.9 (1) Diabetes mellitus Diabetes mellitus complication status: without complication Diabetes mellitus nursing home insulin use: without rodent exterminator use Diabetes mellitus type: type 2 Qualified Code(s): E11.9 - Type 2 diabetes mellitus without complications (2) HTN (hypertension) Hypertension type: essential hypertension Qualified Code(s): I10 - Essential (primary) hypertension
[2021-02-25] MEDS: MIRTAZAPINE TAB 15 MG TAB PO SCH (20:40)
[2021-02-25] MEDS: PRAVASTATIN SOD 40 MG TAB PO SCH (20:42)
[2021-02-26] MEDS: LEVOTHYROXINE SODIUM 75 MCG TABLET PO SCH (05:57)
[2021-02-26 09:18] LABS: Hemoglobin 11.8 g/dL (12.0-16.0); Mean Corpuscular Hemoglobin 28.6 pg (25-34); Mean Corpuscular Hgb Conc 32.8 g/dL (32-36); Mean Corpuscular Volume 87.4 fL (80-100); Mean Platelet Volume 9.5 fL (7.4-10.4); Platelet Count 276 K/uL (130-400); RDW Coefficient of Variation 13.8 % (11.5-14.5); RDW Standard Deviation 43.7 fL (36.4-46.3); Red Blood Count 4.12 M/uL (4.2-5.4); White Blood Count 6.24 K/uL (4.8-10.8)
[2021-02-26] MEDS: FERROUS SULFATE 325 MG TAB PO SCH ×2 (09:25→16:41)
[2021-02-26] MEDS: amLODIPine BESYLATE 5 MG TAB PO SCH ×2 (09:27→21:51)
[2021-02-26] MEDS: ESCITALOPRAM OXALATE 10 MG TAB PO SCH (09:28)
[2021-02-26] MEDS: POTASSIUM CHLORIDE CRTAB 20 MEQ TABCR PO SCH (09:30)
[2021-02-26] MEDS: PANTOprazole 40 MG TAB PO SCH ×2 (09:30→21:53)
[2021-02-26] MEDS: THIAMINE HCL 100 MG TAB PO SCH ×2 (09:31→21:51)
[2021-02-26] MEDS: CHOLECALCIFEROL 1,000 UNITS 25 MCG TAB PO SCH (09:32)
[2021-02-26] MEDS: HEPARIN SOD 5,000 UNIT/0.5 ML VIAL SQ SCH ×2 (09:37→21:51)
[2021-02-26] MEDS: ACETAMINOPHEN 500 MG TAB PO SCH ×3 (09:37→21:51)
[2021-02-26 09:48] LABS: BUN Creatinine Ratio 18.9 (10-20); C Reactive Protein 3.57 mg/dl (0-0.29); Calcium 9.2 mg/dl (8.5-10.1); Creatinine Clr Calc Pharmacy 18.1 ml/min; Est GFR (African American) 33.3 ml/min; Est GFR (Non-African American) 28.7 ml/min; Potassium 5.1 mmol/L (3.5-5.1)
[2021-02-26] MEDS: ERTAPENEM SODIUM 500 MG in SODIUM CHLORIDE 0.9% 50 ML IV SCH (14:01)
[2021-02-26] MEDS ORDERED: FUROSEMIDE 20 MG TAB PO ONE (15:25)
[2021-02-26] MEDS ORDERED: predniSONE 10 MG TABLET PO STA (15:26)
--- NOTE | 2021-02-26 21:11 | Hospitalist Progress Note ---
Date of Service February 26, 2021 Assessment & Plan (1) Complete heart block: POD #5 s/p permanent pacemaker placement. appreciate cardiology assistance. pacer site intact. mild swelling only; no pocket hematoma. device working appropriately. tele with pacing [id number]. cont left arm restrictions. cont tylenol 1gm TID for discomfort/pain. can d/c telemetry - stable since the pacer insertion. (2) Acute diastolic (congestive) heart failure: 2nd to complete heart block with severe bradycardia and likely poor forward flow at time of admission. 1 additional dose of lasix today then stop. (3) ARF (acute renal failure): Peak Cr 1.63 at admission. Likely prerenal from complete heart block. BMP am. (4) UTI (urinary tract infection): urine cx with ESBL e.coli. cont ertapenem daily. day #[address] abd/pelvis with findings c/w cystitis and right-sided hydronephrosis/hydroureter. see below. plan at least 7 days of ertapenem. (5) Diabetes mellitus: With significant hypoglycemia requiring institution of dextrose infusion at 20cc/hr of D5W several days ago. All diabetic agents held. Cortisol level wnl. Anorexia, hypoglycemia in setting of infection, etc likely all to blame. BSGs are normal off the drip today. In fact, due to steroids, BSGs trending up modestly. (6) Hyperlipidemia: Pravastatin 40 mg daily (7) HTN (hypertension): Cont amlodipine 2.5mg BID. 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 remains on lexapro and mirtazapine for such worrisome she continues with anorexia despite the mirtazapine uncertain if current symptomatology is from UTI?? however her anorexia has not improved with Rx of UTI sed rate/crp very high which could be due to UTI PMR? other? gave prednisone 20mg x 1 yesterday maybe modest to mild improvement at today in overall status/constitution --- doubt PMR will give 10mg tomorrow to spark her appetite (12) Elevated sed rate: 2nd to UTI? if not UTI -- MM? PMR? other autoimmune disease? empiric dose of prednisone 20mg given yesterday - with mild results at most doubt PMR (13) Hydroureteronephrosis: RIGHT SIDE ?UPJ obstruction this issue will set her up for UTIs I spoke with urology by phone - ok for her to have outpatient f/u for this nothing acute to do at this time it is chronic based on imaging treat her current UTI (14) Chronic kidney disease, stage IV (severe): CrCl at baseline 10s and 20s bmp am (15) Flat affect: depression? parkinson's disease? other? cont anti-depressants consider neuro referral post-d/c (16) DVT prophylaxis: heparin 5000 BID cont PT, OT ok to d/c telemetry move to med/surg Admission and Anticipated Discharge Date Admission Date: February 21, 2021 Subjective patient sitting in chair today during rounds she looked a bit more sprightly, was more engaging, and apparently was a bit stronger today transferring from bed to chair she asked again, like yesterday, if her "surgery went well" (referring to pace maker placement) appetite still poor per staff - only bites, eats potato chips at times in gee of other food from her meal trays no new complaints tele overnight - pacing Review of Systems Respiratory: no cough and no dyspnea Cardiovascular: no chest pain, no dyspnea at rest and no orthopnea Gastrointestinal: no abdominal pain, no nausea and no vomiting Physical Exam Constitutional: + altered mental status (mildly confused but was a little better than yesterday) and + frail appearing; no acute distress overall looks a little better today ENMT: external ear and nose normal, oropharynx normal Respiratory: no respiratory distress Auscultation: + diminished lung sounds (bases) and + crackles (scattered - bases ); no wheezes Cardiovascular: Rate/Rhythm: regular rate and regular rhythm Heart Sounds: normal S1 and normal S2; no murmur Vessels: posterior tibial pulses present and dorsalis pedis pulses present; no JVD Extremities: no edema Chest (Breasts): Additional Comments: pacer site, left upper chest, clean; incision with steristrips; no drainage; minimal ecchymoses Gastrointestinal (Abdomen): normal bowel sounds, soft, nontender, no hepatosplenomegaly Neurologic: rigidity of all 4 exts; intermittent tremor Psychiatric: Orientation: alert and oriented to person; + not oriented to time Affect: + flat affect (masked facies??) Results & Data Results & Data ([facility]) Vital Signs (Past 12 Hours) Vital Signs Temp Pulse Pulse Resp BP Pulse Ox 02/26/21 18:18 82 159/76 H 02/26/21 17:06 36.4 C L 81 18 176/68 H 95 02/26/21 15:36 36.6 C 75 16 168/68 H 94 02/26/21 12:09 36.5 C 76 19 165/71 H 97 Laboratory Results Laboratory Results - last 24 hr 02/26/21 02/26/21 02/26/21 07:34 08:53 08:53 WBC 6.24 RBC 4.12 L Hgb 11.8 L Hct 36.0 L MCV 87.4 MCH 28.6 MCHC 32.8 RDW Std Deviation 43.7 RDW Coeff of Otis 13.8 Plt Count 276 MPV 9.5 Sodium 138 Potassium 5.1 D Chloride 107 Carbon Dioxide 23 Anion Gap 8.0 BUN 30 H Creatinine 1.59 H Est Cr Clr Drug Dosing 18.1 Est GFR ( Amer) 33.3 Est GFR (Non-Af Amer) 28.7 BUN/Creatinine Ratio 18.9 Glucose 137 H POC Glucose 139 H Calcium 9.2 C-Reactive Protein 3.57 H 02/26/21 02/26/21 02/26/21 11:45 16:32 20:00 WBC RBC Hgb Hct MCV MCH MCHC RDW Std Deviation RDW Coeff of Otis Plt Count MPV Sodium Potassium Chloride Carbon Dioxide Anion Gap BUN Creatinine Est Cr Clr Drug Dosing Est GFR ( Amer) Est GFR (Non-Af Amer) BUN/Creatinine Ratio Glucose POC Glucose 136 H 177 H 193 H Calcium C-Reactive Protein PG Care Time/CCT Total # of Minutes Spent Total Time Spent with Patient: Total time spent is greater than 50% in coordination of care (as documented) at patient's floor/unit and/or counseling patient: Coding Level of Care Code 59346 Subseq Hosp Care Lvl 3 Diagnoses Complete heart block I44.2 Acute diastolic (congestive) heart failure I50.31 ARF (acute renal failure) N17.9 UTI (urinary tract infection) N39.0 Diabetes mellitus E11.9 Diabetes mellitus complication status: without complication Diabetes mellitus snf insulin use: without snf use Diabetes mellitus type: type 2 Hyperlipidemia E78.5 HTN (hypertension) I10 Hypertension type: essential hypertension Hypothyroidism E03.9 Vitamin B12 deficiency (dietary) anemia D51.8 MCI (mild cognitive impairment) G31.84 Anorexia R63.0 Elevated sed rate R70.0 Hydroureteronephrosis N13.30 Chronic kidney disease, stage IV (severe) N18.4 Flat affect R45.89 DVT prophylaxis Z29.9 (1) Diabetes mellitus Diabetes mellitus complication status: without complication Diabetes mellitus rn long term care insulin use: without snf use Diabetes mellitus type: type 2 Qualified Code(s): E11.9 - Type 2 diabetes mellitus without complications (2) HTN (hypertension) Hypertension type: essential hypertension Qualified Code(s): I10 - Essential (primary) hypertension
[2021-02-26] MEDS: MIRTAZAPINE TAB 15 MG TAB PO SCH (21:51)
[2021-02-26] MEDS: PRAVASTATIN SOD 40 MG TAB PO SCH (21:53)
[2021-02-27] MEDS: LEVOTHYROXINE SODIUM 50 MCG TABLET PO SCH (06:32)
[2021-02-27 07:24] LABS: Hematocrit (blood only) 35.2 % (37-47); Hemoglobin 11.3 g/dL (12.0-16.0); Mean Corpuscular Hemoglobin 28.2 pg (25-34); Mean Corpuscular Hgb Conc 32.1 g/dL (32-36); Mean Corpuscular Volume 87.8 fL (80-100); Mean Platelet Volume 9.5 fL (7.4-10.4); Platelet Count 256 K/uL (130-400); RDW Coefficient of Variation 13.8 % (11.5-14.5); RDW Standard Deviation 44.1 fL (36.4-46.3); Red Blood Count 4.01 M/uL (4.2-5.4); White Blood Count 6.42 K/uL (4.8-10.8)
[2021-02-27] MEDS: CHOLECALCIFEROL 1,000 UNITS 25 MCG TAB PO SCH (08:36)
[2021-02-27] MEDS: FERROUS SULFATE 325 MG TAB PO SCH ×2 (08:37→16:20)
[2021-02-27] MEDS: THIAMINE HCL 100 MG TAB PO SCH ×2 (08:37→20:19)
[2021-02-27] MEDS: ESCITALOPRAM OXALATE 10 MG TAB PO SCH (08:37)
[2021-02-27] MEDS: HEPARIN SOD 5,000 UNIT/0.5 ML VIAL SQ SCH ×2 (08:38→20:20)
[2021-02-27] MEDS: PANTOprazole 40 MG TAB PO SCH ×2 (09:04→20:19)
[2021-02-27] MEDS: ACETAMINOPHEN 500 MG TAB PO SCH ×3 (09:04→21:39)
[2021-02-27] MEDS: amLODIPine BESYLATE 5 MG TAB PO SCH ×2 (09:04→20:13)
[2021-02-27 11:14] LABS: BUN Creatinine Ratio 20.7 (10-20); Calcium 8.8 mg/dl (8.5-10.1); Creatinine Clr Calc Pharmacy 17.2 ml/min; Est GFR (African American) 34.6 ml/min; Est GFR (Non-African American) 29.8 ml/min; Potassium 5.3 mmol/L (3.5-5.1)
[2021-02-27] MEDS ORDERED: predniSONE 5 MG TAB PO ONE (19:37)
[2021-02-27] MEDS: DICLOFENAC SOD 1% GEL 100 GM TUBE EXT SCH (20:12)
[2021-02-27] MEDS: LIDOCAINE 5% 1 PATCH TD SCH (20:19)
[2021-02-27] MEDS: MIRTAZAPINE TAB 15 MG TAB PO SCH (20:19)
[2021-02-27] MEDS: PRAVASTATIN SOD 40 MG TAB PO SCH (20:20)
--- NOTE | 2021-02-27 22:53 | Hospitalist Progress Note ---
Date of Service February 27, 2021 Assessment & Plan (1) Complete heart block: POD #6 s/p permanent pacemaker placement. appreciate cardiology assistance. pacer site intact. mild swelling only; no pocket hematoma. device working appropriately. cont left arm restrictions. cont tylenol 1gm TID for discomfort/pain. will need f/u with EP 1 week post-d/c. (2) Acute diastolic (congestive) heart failure: resolved. was 2nd to complete heart block with severe bradycardia and likely poor forward flow at time of admission. (3) ARF (acute renal failure): Peak Cr 1.63 at admission. Likely prerenal from complete heart block. BMP am. (4) UTI (urinary tract infection): urine cx with ESBL e.coli. cont ertapenem daily. day #6 of such. plan [address] abd/pelvis with findings c/w cystitis and right-sided hydronephrosis/hydroureter. see below. (5) Diabetes mellitus: With significant hypoglycemia requiring institution of dextrose infusion earlier this week. resolved. All diabetic agents held. Cortisol level wnl. Anorexia, hypoglycemia in setting of infection, etc likely all to blame. With steroids sugars have now been 125-175. (6) Hyperlipidemia: Pravastatin 40 mg daily (7) HTN (hypertension): Cont amlodipine 2.5mg BID. BPs have improved through the week. 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 remains on lexapro and mirtazapine for such worrisome she continues with anorexia despite the mirtazapine due to UTI? due to PMR or other autoimmune condition? thus far appetite has not improved with prednisone. and overall constitution not significantly improved with prednisone making PMR highly unlikely. continue 5mg of prednisone daily and re-eval tomorrow (12) Elevated sed rate: 2nd to UTI? if not UTI -- MM? PMR? other autoimmune disease? see "anorexia" above (13) Hydroureteronephrosis: RIGHT SIDE ?UPJ obstruction this issue will set her up for UTIs I spoke with urology by phone - ok for her to have outpatient f/u for this nothing acute to do at this time it is chronic based on imaging treat her current UTI (14) Chronic kidney disease, stage IV (severe): CrCl at baseline 10s and 20s bmp am (15) Flat affect: depression? parkinson's disease? other? cont anti-depressants consider neuro referral post-d/c (16) Hyperkalemia: likely due to recent K supplementation. supplement has been stopped. repeat K this evening to ensure normalization. (17) DVT prophylaxis: heparin 5000 BID cont PT, OT son updated at bedside consider palliative care consultation if anorexia persists son updated at bedside Admission and Anticipated Discharge Date Admission Date: February 21, 2021 Subjective patient's son was at bedside during the visit he brought her [employer] [place] fries again and ate those decently picking at other foods during dinner ate poorly, however, at breakfast and lunch today still with poor-fair energy did sit in chair briefly today by report no new issues Review of Systems Constitutional: + fatigue and + weakness; no fever Respiratory: no cough and no dyspnea Cardiovascular: no chest pain Gastrointestinal: no abdominal pain Physical Exam Constitutional: + altered mental status (but slowly improving ) and + frail appearing; no acute distress ENMT: external ear and nose normal, oropharynx normal Mouth: oral mucous membranes not dry (resolved today ) Respiratory: no respiratory distress Auscultation: + diminished lung sounds (bases); no crackles and no wheezes Cardiovascular: Rate/Rhythm: regular rate and regular rhythm Heart Sounds: normal S1 and normal S2; no murmur Vessels: posterior tibial pulses present and dorsalis pedis pulses present; no JVD Extremities: no edema Gastrointestinal (Abdomen): normal bowel sounds, soft, nontender, no hepatosplenomegaly Psychiatric: Orientation: alert, oriented to person and oriented to place; + not oriented to time Affect: + flat affect (masked facies??) Results & Data Results & Data ([facility]) Vital Signs (Past 12 Hours) Vital Signs Temp Pulse Resp BP Pulse Ox 02/27/21 22:42 37.4 C 74 14 132/63 93 02/27/21 20:39 36.4 C L 80 16 158/63 H 92 02/27/21 17:57 36.6 C 77 16 171/71 H 95 Laboratory Results Laboratory Results - last 24 hr 02/27/21 02/27/21 02/27/21 07:04 07:04 07:04 WBC 6.42 RBC 4.01 L Hgb 11.3 L Hct 35.2 L MCV 87.8 MCH 28.2 MCHC 32.1 RDW Std Deviation 44.1 RDW Coeff of Otis 13.8 Plt Count 256 MPV 9.5 ESR 66 H Sodium 138 Potassium 5.3 H Chloride 108 H Carbon Dioxide 25 Anion Gap 5.0 BUN 32 H Creatinine 1.54 H Est Cr Clr Drug Dosing 17.2 Est GFR ( Amer) 34.6 Est GFR (Non-Af Amer) 29.8 BUN/Creatinine Ratio 20.7 H Glucose 175 H POC Glucose Calcium 8.8 02/27/21 02/27/21 02/27/21 07:38 11:35 17:06 WBC RBC Hgb Hct MCV MCH MCHC RDW Std Deviation RDW Coeff of Otis Plt Count MPV ESR Sodium Potassium Chloride Carbon Dioxide Anion Gap BUN Creatinine Est Cr Clr Drug Dosing Est GFR ( Amer) Est GFR (Non-Af Amer) BUN/Creatinine Ratio Glucose POC Glucose 164 H 161 H 119 H Calcium 02/27/21 02/27/21 18:31 20:38 WBC RBC Hgb Hct MCV MCH MCHC RDW Std Deviation RDW Coeff of Otis Plt Count MPV ESR Sodium Potassium 4.2 D Chloride Carbon Dioxide Anion Gap BUN Creatinine Est Cr Clr Drug Dosing Est GFR ( Amer) Est GFR (Non-Af Amer) BUN/Creatinine Ratio Glucose POC Glucose 190 H Calcium PG Care Time/CCT Total # of Minutes Spent Total Time Spent with Patient: Total time spent is greater than 50% in coordination of care (as documented) at patient's floor/unit and/or counseling patient: Coding Level of Care Code 11688 Subseq Hosp Care Lvl 2 Diagnoses Complete heart block I44.2 Acute diastolic (congestive) heart failure I50.31 ARF (acute renal failure) N17.9 UTI (urinary tract infection) N39.0 Diabetes mellitus E11.9 Diabetes mellitus complication status: without complication Diabetes mellitus retirement insulin use: without assistant terminal manager use Diabetes mellitus type: type 2 Hyperlipidemia E78.5 HTN (hypertension) I10 Hypertension type: essential hypertension Hypothyroidism E03.9 Vitamin B12 deficiency (dietary) anemia D51.8 MCI (mild cognitive impairment) G31.84 Anorexia R63.0 Elevated sed rate R70.0 Hydroureteronephrosis N13.30 Chronic kidney disease, stage IV (severe) N18.4 Flat affect R45.89 Hyperkalemia E87.5 DVT prophylaxis Z29.9 (1) Diabetes mellitus Diabetes mellitus complication status: without complication Diabetes mellitus retirement insulin use: without retirement use Diabetes mellitus type: type 2 Qualified Code(s): E11.9 - Type 2 diabetes mellitus without complications (2) HTN (hypertension) Hypertension type: essential hypertension Qualified Code(s): I10 - Essential (primary) hypertension
[2021-02-28] MEDS: LEVOTHYROXINE SODIUM 75 MCG TABLET PO SCH (05:05)
[2021-02-28] MEDS: amLODIPine BESYLATE 5 MG TAB PO SCH ×2 (08:19→21:50)
[2021-02-28] MEDS: ESCITALOPRAM OXALATE 10 MG TAB PO SCH (08:19)
[2021-02-28] MEDS: HEPARIN SOD 5,000 UNIT/0.5 ML VIAL SQ SCH ×2 (08:19→21:51)
[2021-02-28] MEDS: CHOLECALCIFEROL 1,000 UNITS 25 MCG TAB PO SCH (08:19)
[2021-02-28] MEDS: FERROUS SULFATE 325 MG TAB PO SCH ×2 (08:19→16:58)
[2021-02-28] MEDS: THIAMINE HCL 100 MG TAB PO SCH ×2 (08:19→21:55)
[2021-02-28] MEDS: PANTOprazole 40 MG TAB PO SCH ×2 (08:22→21:54)
[2021-02-28] MEDS: predniSONE 5 MG TAB PO SCH (08:23)
[2021-02-28] MEDS: DICLOFENAC SOD 1% GEL 100 GM TUBE EXT SCH ×4 (08:23→21:51)
[2021-02-28] MEDS: ACETAMINOPHEN 500 MG TAB PO SCH ×3 (08:24→21:50)
[2021-02-28] MEDS: LIDOCAINE 5% 1 PATCH TD SCH (18:50)
--- NOTE | 2021-02-28 20:55 | Hospitalist Progress Note ---
Date of Service February 28, 2021 Assessment & Plan (1) Complete heart block: POD #7 s/p permanent pacemaker placement. pacer site intact. mild swelling only; still no pocket hematoma. steri strips intact. device working appropriately. cont left arm restrictions. cont tylenol 1gm TID for discomfort/pain. (2) Acute diastolic (congestive) heart failure: 2nd to complete heart block with severe bradycardia and likely poor forward flow at time of admission. resolved. no further diuretics. (3) ARF (acute renal failure): Peak Cr 1.63 at admission. Likely prerenal from complete heart block. BMP am. (4) UTI (urinary tract infection): urine cx with ESBL e.coli. cont ertapenem daily. day #[address] abd/pelvis with findings c/w cystitis and right-sided hydronep hrosis/hydroureter. (5) Diabetes mellitus: BSGs trending up due to prednisone and better appetite. resume lantus - 4 units daily. follow BSGs on this. (6) Hyperlipidemia: Pravastatin 40 mg daily (7) HTN (hypertension): Cont amlodipine 2.5mg BID. (8) Hypothyroidism: last 3 TSHs all elevated thus, increased synthroid --- 75mcg of synthroid M/W/F and 50mcg other days TSH in 6 weeks (9) Vitamin B12 deficiency (dietary) anemia: most recent b12 level wnl checked a B1 level as well - still pending empiric thiamine 200 BID while awaiting level (10) MCI (mild cognitive impairment): noted no significant delirium or behavior disturbance (11) Anorexia: FINALLY IMPROVING TODAY suspect UTI contributed to poor appetite and also suspect the prednisone is helping cont prednisone 5mg daily for a few more days then stop cont remeron for depression (12) Elevated sed rate: 2nd to UTI? repeat ESR in am I do not think she has PMR - did not have robust response to prednisone in 24-36 hours as typically seen with PMR (13) Hydroureteronephrosis: RIGHT SIDE ?UPJ obstruction this issue will set her up for UTIs I spoke with urology by phone - ok for her to have outpatient f/u for this nothing acute to do at this time it is chronic based on imaging treat her current UTI (14) Chronic kidney disease, stage IV (severe): CrCl at baseline 10s and 20s bmp am (15) Flat affect: depression? parkinson's disease? other? cont anti-depressants affect IS better today (16) DVT prophylaxis: heparin 5000 BID cont PT, OT updated son by phone this evening anticipate d/c back to [facility] tomorrow on Wednesday Admission and Anticipated Discharge Date Admission Date: February 21, 2021 Subjective patient ate very well today actually had an appetite ate at least 50% of each meal son brought Fredi again and she ate some of that as well energy MUCH better feeling good no new complaints Review of Systems Constitutional: no fever, no chills and no anorexia Respiratory: no cough and no dyspnea Cardiovascular: no chest pain Gastrointestinal: no abdominal pain, no nausea and no vomiting Physical Exam Constitutional: + altered mental status (didn't know month/year but she was more sharp than previous ); no acute distress overall much better constitution and very sprightly today ENMT: external ear and nose normal, oropharynx normal Respiratory: no respiratory distress Auscultation: + diminished lung sounds (bases); no wheezes Cardiovascular: Rate/Rhythm: regular rate and regular rhythm Heart Sounds: normal S1 and normal S2; no murmur Vessels: posterior tibial pulses present and dorsalis pedis pulses present; no JVD Extremities: no edema Gastrointestinal (Abdomen): normal bowel sounds, soft, nontender, no hepatosplenomegaly Skin: left pacer site - upper L chest - clean, dry, steri strips present and intact Neurologic: moves all extremities; no focal motor deficits Psychiatric: Orientation: alert and oriented to person; + not oriented to time much more animated and talkative today with rico affect Results & Data Results & Data ([facility]) Vital Signs (Past 12 Hours) Vital Signs Temp Pulse Pulse Resp BP Pulse Ox 02/28/21 15:05 36.7 C 75 16 160/72 H 95 02/28/21 10:49 36.5 C 78 76 16 169/74 H 93 Laboratory Results Laboratory Results - last 24 hr 02/28/21 02/28/21 02/28/21 08:13 12:20 17:16 POC Glucose 163 H 153 H 175 H PG Care Time/CCT Total # of Minutes Spent Total Time Spent with Patient: Total time spent is greater than 50% in coordination of care (as documented) at patient's floor/unit and/or counseling patient: Coding Level of Care Code 57018 Subseq Hosp Care Lvl 2 Diagnoses Complete heart block I44.2 Acute diastolic (congestive) heart failure I50.31 ARF (acute renal failure) N17.9 UTI (urinary tract infection) N39.0 Diabetes mellitus E11.9 Diabetes mellitus complication status: without complication Diabetes mellitus longterm insulin use: without long term acute care registered nurse use Diabetes mellitus type: type 2 Hyperlipidemia E78.5 HTN (hypertension) I10 Hypertension type: essential hypertension Hypothyroidism E03.9 Vitamin B12 deficiency (dietary) anemia D51.8 MCI (mild cognitive impairment) G31.84 Anorexia R63.0 Elevated sed rate R70.0 Hydroureteronephrosis N13.30 Chronic kidney disease, stage IV (severe) N18.4 Flat affect R45.89 DVT prophylaxis Z29.9 (1) Diabetes mellitus Diabetes mellitus complication status: without complication Diabetes mellitus longterm insulin use: without longterm use Diabetes mellitus type: type 2 Qualified Code(s): E11.9 - Type 2 diabetes mellitus without complications (2) HTN (hypertension) Hypertension type: essential hypertension Qualified Code(s): I10 - Essential (primary) hypertension
[2021-02-28] MEDS ORDERED: INSULIN GLARGINE SOLOSTAR 100 UNITS/ML 3 ML PEN SC SCH (21:00)
[2021-02-28] MEDS: MIRTAZAPINE TAB 15 MG TAB PO SCH (21:52)
[2021-02-28] MEDS: PRAVASTATIN SOD 40 MG TAB PO SCH (21:54)
[2021-03-01] MEDS: LEVOTHYROXINE SODIUM 50 MCG TABLET PO SCH (06:10)
[2021-03-01 07:07] LABS: BUN Creatinine Ratio 23.3 (10-20); Calcium 8.2 mg/dl (8.5-10.1); Creatinine Clr Calc Pharmacy 18.5 ml/min; Est GFR (African American) 37.8 ml/min; Est GFR (Non-African American) 32.6 ml/min; Potassium 4.4 mmol/L (3.5-5.1)
[2021-03-01] MEDS: ACETAMINOPHEN 500 MG TAB PO SCH (08:17)
[2021-03-01] MEDS: THIAMINE HCL 100 MG TAB PO SCH (08:17)
[2021-03-01] MEDS: FERROUS SULFATE 325 MG TAB PO SCH (08:18)
[2021-03-01] MEDS: CHOLECALCIFEROL 1,000 UNITS 25 MCG TAB PO SCH (08:18)
[2021-03-01] MEDS: amLODIPine BESYLATE 5 MG TAB PO SCH (08:18)
[2021-03-01] MEDS: ESCITALOPRAM OXALATE 10 MG TAB PO SCH (08:18)
[2021-03-01] MEDS: HEPARIN SOD 5,000 UNIT/0.5 ML VIAL SQ SCH (08:20)
[2021-03-01] MEDS: DICLOFENAC SOD 1% GEL 100 GM TUBE EXT SCH (08:20)
[2021-03-01] MEDS: PANTOprazole 40 MG TAB PO SCH (08:21)
[2021-03-01] MEDS: predniSONE 5 MG TAB PO SCH (08:21)
[2021-03-01] MEDS ORDERED: ERTAPENEM SODIUM 500 MG in SODIUM CHLORIDE 0.9% 50 ML IV ONE (09:00)
--- NOTE | 2021-03-01 12:00 | Discharge Summary ---
Date of Service date of admission - February 21, 2021 date of discharge - March 01, 2021 Admission HPI Per Admitting Provider This is an 89-year-old female past medical history of hypertension, hypothyroidism, previous fall with humeral fracture, first-degree block that presents today with shortness of breath. Patient is a somewhat limited historian and she has a mild degree of dementia. Son is at bedside. Patient is a resident of [facility]. Patient tells us that she has had some generalized weakness shortness of breath over the past several days. She is unclear of how long this is lasted but does feel that it is getting worse. Denies any fevers, chills, cough, nausea, vomiting, or other systemic symptoms. EMS was called and the patient was found to bradycardic in the 30-40 range in route. In the emergency room, she remains very bradycardic and was found to be in complete heart block. Blood pressure is elevated with systolic in the 180s. O2 sat was low of blood patient responded well to nasal cannula oxygen her sat is 94% on 3 L. ER physician is already called cardiology considering her persistent complete heart block. Patient does appear to be in mild CHF and Lasix 20 mg IV x1 was about to be given by nursing. Patient does not appear to be in any cardiopulm onary distress and denies any palpitations or chest pain at this time. Principal Diagnosis 1. complete heart block s/p permanent pacemaker placement 2. acute diastolic CHF 2nd to #1 3. ESBL e.coli UTI 4. failure to thrive / anorexia Discharge Exam Constitutional + altered mental status (Baseline); no acute distress ENMT external ear and nose normal, oropharynx normal Respiratory no respiratory distress Auscultation: + diminished lung sounds (bases) and + rales; no wheezes Cardiovascular Rate/Rhythm: regular rate and regular rhythm Heart Sounds: normal S1 and normal S2; no murmur Vessels: posterior tibial pulses present and dorsalis pedis pulses present; no JVD Gastrointestinal (Abdomen) normal bowel sounds, soft, nontender, no hepatosplenomegaly Inspection/Auscultation: + abdomen distended (mild - no change ) Skin right upper chest - pacer site clean; incision intact; mild ecchymoses only Neurologic moves all extremities; no focal motor deficits Psychiatric Orientation: alert, oriented to person and oriented to place; + not oriented to time Affect: + flat affect (masked facies??) Discharge Data Allergies Allergy/AdvReac Type Severity Reaction Status Date / Time amoxicillin Allergy Intermediate RASH Verified 03/10/21 03:08 cephalexin Allergy Intermediate RASH Verified 03/10/21 03:08 Consultations MNP Cardiology Procedures Performed Operation Date: 02/21/21 14:00 Actual Procedures p Pacer with A/V Leads (Dual) - Mansoor Campos MD Ordered Studies Chest X-Ray 02/21/21 08:53 XR chest 1V portable CLINICAL HISTORY: Atypical chest pain COMPARISON STUDY: 02/18/2016 FINDINGS: The cardiac and mediastinal contours remain stable. The heart is normal in size. There is aortic tortuosity/ectasia. There is diffuse elevation of interstitium likely secondary to congestive failure/fluid overload. There are small pleural effusions. There is an old proximal left humeral fracture.[ IMPRESSION: 1. Radiographic findings consistent with mild congestive failure/fluid overload with small bilateral pleural effusions ACT 112: Negative or not required by law. Electronically signed by: Cristo Hudson M.D. 02/21/2021 9:54 AM Chest X-Ray 02/22/21 07:00 XR chest 2V PA/lateral CLINICAL HISTORY: Pacemaker insertion. COMPARISON STUDY: Chest radiograph February 21, 2021. FINDINGS: There is no pneumothorax following placement of a dual lead left subclavian pacemaker. Lead tips project over the right atrial appendage and right ventricle. Cardiomegaly is noted. Small bilateral pleural effusions are again noted. Interstitial thickening has slightly progressed. This represents pulmonary edema. Old deformity of the proximal left humerus is incidentally noted. IMPRESSION: 1. No pneumothorax following placement of a dual-lead left subclavian pacemaker. 2. Mild increase in pulmonary edema and small bilateral pleural effusions. ACT 112: Negative or not required by law. Electronically signed by: Luis Lopez M.D. 02/22/2021 7:12 AM KUB X-Ray 02/22/21 13:11 KUB CLINICAL HISTORY: abd distension -- fecal impaction ? COMPARISON STUDY: CT of the abdomen and pelvis April 06, 2017. FINDINGS: Pacer leads are partially imaged. There is mild levoscoliosis of the upper lumbar spine. The bowel gas pattern is normal. Small bilateral pleural fusions are incidentally noted. Amount of stool is within normal limits. IMPRESSION: No evidence for a bowel obstruction. Unremarkable amount of stool. ACT 112: Negative or not required by law. Electronically signed by: Luis Lopez M.D. 02/22/2021 2:48 PM Abdomen/Pelvis CT 02/23/21 17:53 CT SCAN OF THE ABDOMEN AND PELVIS WITHOUT IV CONTRAST CLINICAL HISTORY: Urinary tract infection. COMPARISON STUDY: Abdominal CT dated 04/06/2017. TECHNIQUE: CT scan of the abdomen and pelvis is performed from the lung bases to the proximal femora. Images are reviewed in the axial, sagittal, and coronal planes. IV contrast was not administered for this examination. Note that the examination is significantly suboptimal without oral and IV contrast. There is also motion artifact, as well as streak artifact from the arms which could not be elevated above the abdomen. A dose lowering technique was utilized adhering to the principles of ALARA. CT DOSE: 492.25 mGy.cm FINDINGS: Lung bases: The heart is enlarged and without pericardial effusion. Pacemaker leads are noted. The coronary arteries are densely calcified. There is diminished attenuation of the cardiac blood pool as compared to the myocardium suggesting anemia. There are small pleural effusions with bibasilar consolidation. There is a small hiatal hernia. Liver: The unenhanced liver is normal in size and heterogeneous in attenuation. Nodularity of the hepatic surface contour suggests early change of cirrhosis. There is no intrahepatic biliary ductal dilatation. Gallbladder: Contracted. Spleen: Normal in size and attenuation. Pancreas: The unenhanced pancreas is moderately atrophic and grossly unremarkable. Adrenal glands: Unremarkable. Kidneys: The unenhanced kidneys are atrophic, right asymmetrically greater than left. There is moderate right-sided hydronephrosis. The right ureter is normal in caliber and this is unchanged from previous, possibly representing a UPJ type obstruction. There are at least 3 nonobstructing right renal calculi measuring up to 6 mm. No left renal calculi are identified and there is no left-sided hydronephrosis. There is no evidence of contour deforming renal mass lesion. There are renovascular calcifications. Abdominal vasculature: The abdominal aorta is normal in course and caliber noting advanced atherosclerotic calcification. Bowel: There is mild sigmoid diverticulosis without CT evidence of acute diverticulitis. No bowel obstruction is seen. The appendix is not identified and reported surgically absent. Peritoneum: There is no intraperitoneal free air or abdominal ascites. Lymphadenopathy: None. Pelvic viscera: The bladder is decompressed around a Cotton catheter. Intraluminal gas is nonspecific and may be related to instrumentation. The bladder wall appears thickened and there is pericystic inflammation. The uterus is surgically absent. No adnexal lesion is seen. There are large bilateral fat- containing inguinal hernias. Skeletal structures: The skeletal structures are osteopenic. No lytic or blastic lesions are seen. There are healed right-sided rib fractures. There is moderate lumbosacral spondylosis and mild scoliosis. There are chronic compression deformity of T12 and L3. IMPRESSION: 1. Suboptimal examination without oral and IV contrast. There is also streak and motion artifact. 2. There are small pleural effusions with bibasilar consolidation. This could represent atelectasis and/or pneumonia and clinical correlation will be required. 3. Cardiomegaly and cardiac pacemaker. 4. Findings suggest cystitis. Correlate with clinical findings and urinalysis. 5. Right-sided nephrolithiasis. 6. There is asymmetric cortical atrophy of the right kidney and chronic right hydronephrosis. The right ureter is normal in caliber, and this likely represents a UPJ type obstruction. 7. Colonic diverticulosis without CT evidence of acute diverticulitis. 8. Additional findings as above. ACT 112: Negative or not required by law. Electronically signed by: Armando Valdes M.D. 02/23/2021 8:30 PM Echocardiogram - * EF 60-65% * mild mitral regurgitation * mild tricuspid regurgitation * no regional wall motion abnormalities Hospital Course (1) Complete heart block: Presented in 3rd degree / complete heart block. Seen by [facility], Dr Masnoor Campos. Underwent permanent pacemaker placement on 02/21/[address] Campos without complication. pacer site remained intact the entire stay with only mild swelling. no pocket hematoma. steri strips intact. device working appropriately. Will continue with arm restrictions for 6 weeks. continue tylenol 1gm TID for discomfort/pain for several days post-discharge. (2) Acute diastolic (congestive) heart failure: 2nd to complete heart block with severe bradycardia and likely poor forw davey flow at time of admission. resolved with IV diuretic therapy. O2 weaned off prior to discharge. no further diuretics upon return to SNF. (3) ARF (acute renal failure): Peak Cr 1.63 at admission. Likely prerenal from complete heart block. Cr 1.4 at discharge. (4) UTI (urinary tract infection): urine cx with ESBL e.coli. received 7-day course of IV ertapenem for such. CT abd/pelvis with findings c/w cystitis and right-sided hydronephrosis/hydroureter. (5) Failure to thrive: Despite Rx of her ESBL e.coli UTI, placement of pacemaker for complete heart block, and use of low-dose prednisone for appetite stimulation she did poorly for much of her stay with overall energy, appetite, her affect, etc. Son reported this had been a longer-standing issue for several months. I am concerned she has some other underlying medical issue contributing to her failure to thrive in addition to the above. I would not strongly recommend extensive work-up. Consider palliative care consultation as outpatient to refine goals of care. She can see Dr Silvana Daley in the office for such. (6) Hydroureteronephrosis: RIGHT SIDE ?UPJ obstruction? this issue will set her up for UTIs I spoke with urology by phone - ok for her to have outpatient f/u for this nothing acute to do at this time it is chronic based on imaging treat her current UTI send to [facility] Urology post-discharge (7) Hypothyroidism: last 3 TSHs all elevated thus, I increased synthroid to 75mcg of synthroid M/W/F and 50mcg other days TSH in 6 weeks as outpatient (8) Anorexia: SEVERE throughout the hospital stay her son reported it had been an [facility] over the last few months and particularly since early January 2021 suspect UTI contributed to poor appetite suspect element of depression contributing to chronic anorexia despite Rx of UTI her appetite remained poor while hospitalized was started on low-dose prednisone for a few days to help stimulate appetite this indeed did finally work and in the 24 hours prior to discharge she was finally eating about 50% of her meals cont prednisone 5mg daily for a few more days post-discharge then stop cont remeron for depression (9) Flat affect: depression? developing parkinson's disease? other? cont anti-depressants affect did improve as her UTI was treated (10) Diabetes mellitus: patient had severe, recurrent hypoglycemia in the early portion of her hospitalization. this actually necessitated use of low-dose glucose infusion to maintain euglycemia. suspect combination of poor PO intake and UTI as the culprits for this. ultimately she was started on a small dose of prednisone to help encourage appetite. BSGs trended up with such and her lantus was resumed albeit at a very low-dose of 4 units. most recent HbA1C was 7.9% in 11/2020. (11) Hyperlipidemia: Pravastatin 40 mg daily (12) HTN (hypertension): Cont amlodipine 2.5mg BID at discharge. (13) Vitamin B12 deficiency (dietary) anemia: most recent b12 level wnl checked a B1 level as well - still pending at time of discharge while awaiting B1 level recommend empiric thiamine 200mg BID at discharge for minimum 14 days (14) MCI (mild cognitive impairment): no significant delirium or behavior disturbance while hospitalized (15) Elevated sed rate: suspect 2nd to UTI peak level 78, falling to 49 prior to discharge I do not think she has PMR - did not have robust response in her constitution to prednisone as is typically seen with PMR (16) Chronic kidney disease, stage IV (severe): CrCl at baseline 10s and 20s Total Time Total Time Spent Total Time Spent (In Minutes): 40 Total Time Includes: Examination of the Patient, Discharge Planning and Medication Reconciliation Discharge Plan Discharge Items Patient Disposition: Trans Resident Long-Term Care Reason For Visit: COMPLETE HEART BLOCK Discharge Diagnosis: 1. complete heart block s/p pacemaker placement by Dr Mansoor Campos on 02/21/21 2. ESBL E.coli UTI 3. failure to thrive / anorexia - modestly improved 02/28 and 03/01 4. acute diastolic CHF - due to #1 - resolved Activity: As commented below Activity Comment: DO NOT raise LEFT arm over head, behind neck, or behind back x 6 weeks Bathing: Keep incision dry Bathing Comment: pacemaker site - left chest; sponge baths only until seen by Dr Campos Non-emergency contact: Primary Care Provider and Investigation Lieutenant Call non-emergency contact if: you have any medication questions, you have a fever, your wound has increased redness, your wound has increased drainage and your wound pain has increased Follow-up/Referrals: [facility] [Provider Group] (first available appointment - diagnosis - hydronephrosis, ?UPJ obstruction) Joseph Campos MD [Physician] - (see Dr Campos THIS WEEK for pacemaker check ) Silvana Daley MD [Physician] - (if failure to thrive/anorexia persist please schedule an appointment with Dr Daley in the palliative care office) [facility] [Primary Care Provider] - Diet: Regular Addtl Attending Provider Instructions: 1. leave steri-strips in place over left chest pacemaker site 2. sponge baths only until seen by Dr Campos 3. BSGs before meals and at bedtime 4. repeat BMP in 3-4 days for stability 5. TSH in 6 weeks as we changed her thyroid dose while here Addtl Visual Journalist Provider Instructions: ACTIVITY RECOMMENDATIONS following pacemaker placement - * Do not raise LEFT arm over head, behind the neck, or behind the back for 6 weeks. SPECIAL CARE INSTRUCTIONS: * If bleeding occurs, apply direct pressure to area for 5 minutes. * Call your doctor if you have severe pain, fever, drainage or bleeding at site. * Keep dressings and steri strips on and dry. * Keep any scheduled doctor's appointment. * Implant Card - hand held device with website information given. SKIN IRRITATION: * You may experience some redness and/or swelling in the area where radiation was administered. If any skin irritation occurs, please contact your family physician. Pending Studies at Discharge: No Stand-Alone Forms: [facility] Skilled Items Patient informed of condition?: Yes DNR: No Discharge Level of Care: Skilled Communicable Disease: Yes Discharge Prognosis: Stable Lines: None Urinary Catheter: No Medications and DC Order Prescriptions: Continued (DME) OneTouch Ultra Blue Test Strip strip See Dose Instructions .ROUTE .MEDSUPPLY Qty: 100 RF: 3 escitalopram oxalate 10 mg tablet 10 mg PO QAM Qty: 90 RF: 0 (DME) lancets [OneTouch Delica Lancets] 33 gauge misc See Dose Instructions .ROUTE .MEDSUPPLY Qty: 100 RF: 0 (DME) OneTouch Ultra Blue Test Strip strip See Dose Instructions .ROUTE .MEDSUPPLY Qty: 10 RF: 0 ipratropium-albuterol 0.5 mg-3 mg(2.5 mg base)/3 mL Solution For Nebulization 3 ml INHALATION Q4H PRN (Reason: Wheezing) RF: 0 pravastatin 40 mg tablet 40 mg PO HS RF: 0 mirtazapine 15 mg tablet 15 mg PO HS RF: 0 carboxymethylcellulose sodium 1 % Drops, Liquid Gel 2 drp OPB QID RF: 0 cholecalciferol (vitamin D3) [Vitamin D3] 25 mcg (1,000 unit) Capsule 25 mcg PO QAM RF: 0 omeprazole 20 mg capsule,delayed release(DR/EC) 20 mg PO BID RF: 0 Changed amlodipine 2.5 mg tablet 2.5 mg PO BID Qty: 90 RF: 0 ferrous sulfate 325 mg (65 mg iron) tablet 325 mg PO DAILY Qty: 0 RF: 0 Discontinued linagliptin 5 mg tablet 5 mg PO QAM Qty: 30 RF: 0 Lantus U-100 Insulin 100 unit/mL solution 15 unit SUBCUT DAILY RF: 0 insulin aspart U-100 [Novolog U-100 Insulin aspart] 100 unit/mL solution 0 sliding scale dose subcut UD RF: 0 levothyroxine 50 mcg Tablet 50 mcg PO DAILYBB RF: 0 No Action nitrofurantoin macrocrystal [Macrodantin] 50 mg Capsule 50 mg PO HS RF: 0 prednisone 5 mg Tablet 5 mg PO QAM RF: 0 thiamine HCl (vitamin B1) [Vitamin B-1] 100 mg Tablet 200 mg PO BID RF: 0 acetaminophen [Tylenol Extra Strength] 500 mg Tablet 1,000 mg PO Q8H RF: 0 insulin aspart U-100 [Novolog U-100 Insulin aspart] 100 unit/mL Solution See Rx Instructions .ROUTE .COMPLEX RF: 0 insulin lispro [Humalog U-100 Insulin] 100 unit/mL Solution See Rx Instructions .ROUTE .COMPLEX RF: 0 hydroxyzine HCl 10 mg Tablet 10 mg PO HS RF: 0 megestrol 400 mg/10 mL (10 mL) Suspension 400 mg PO DAILY RF: 0 Lantus U-100 Insulin 100 unit/mL solution 20 unit SUBCUT HS RF: 0 levothyroxine 50 mcg tablet 50 mcg PO 4XWK RF: 0 lidocaine 5 % adhesive patch,medicated 2 patch transdermal DAILY RF: 0 levothyroxine 75 mcg capsule 75 mcg PO 3XWK RF: 0 Discharge Orders: Discharge Order (Routine); Ordered 03/01/21 Ordered By: Tim Raza Admission Data Admit Date/Time: 02/21/21 11:56 Attending Provider: Tim Raza Admit Provider: Geovanni Palacio Primary Care Provider: [facility] Other Providers: Donny Narayanan ; Pavel Garland ; Silvana Daley Other Interventions: Discharge Summary Assessment (RN) Last Done: 03/01/21 11:53 Coding Level of Care Code D/C Day Management >30 mins Diagnoses Complete heart block I44.2 Acute diastolic (congestive) heart failure I50.31 ARF (acute renal failure) N17.9 UTI (urinary tract infection) N39.0 Failure to thrive Hydroureteronephrosis N13.30 Hypothyroidism E03.9 Anorexia R63.0 Flat affect R45.89 Diabetes mellitus E11.9 Diabetes mellitus complication status: without complication Diabetes mellitus detention insulin use: without detention use Diabetes mellitus type: type 2 Hyperlipidemia E78.5 HTN (hypertension) I10 Hypertension type: essential hypertension Vitamin B12 deficiency (dietary) anemia D51.8 MCI (mild cognitive impairment) G31.84 Elevated sed rate R70.0 Chronic kidney disease, stage IV (severe) N18.4
== END 2021-03-01 12:19 | DRG 242 ==
LOC: ED 08:42 → 2S 11:56 → SUATTDRO 11:56 → 2S 14:15 → 2W 02-26 15:21 → 3E 02-27 12:17